=== PATIENT | male | born 1955 | race Caucasian/White ===

== ENCOUNTER → 2020-07-15 15:47 | Outpatient (CLI) | payer BC, SELFPAY ==
[2017-03-17 11:34] VITALS: BMI 29.5
[2020-07-15 17:07] LABS: Anion Gap 5 (5-15); BUN 24 mg/dL (7-18); BUN/Creat Ratio 22.9 RATIO (10-20); Calcium,Total 9.6 mg/dL (8.5-10.1); Chloride 108 mmol/L (98-107); Creatinine, Serum 1.05 mg/dL (0.70-1.30); EST Glomerular Filtration Rate 75 mL/min (>60); Est Glom Filt Rate - Afr Amer 91 mL/min (>60); Glucose 230 mg/dL (74-106); PSA,Total- Diagnostic 2.49 ng/mL (0.0-4.0); Potassium 3.8 mmol/L (3.5-5.1); Sodium Level 138 mmol/L (136-145)
== END ==
PROVIDERS: PCP Internal Medicine Infectious Disease; Referring Provider Urology; Visit Provider Urology
DX: N40.1 Benign prostatic hyperplasia with lower urinary tract symptoms (principal)
CPT/HCPCS: 36415; 80048; 84153

== ENCOUNTER 2021-03-05 09:11 | Day surgery (SDC) | payer BC, SELFPAY ==
--- NOTE | 2021-02-28 16:17 | EKG12_ITS ---
Test Reason : Blood Pressure : / mmHG Vent. Rate : 068 BPM Atrial Rate : 068 BPM P-R Int : 182 ms QRS Dur : 104 ms QT Int : 408 ms P-R-T Axes : 045 007 -16 degrees QTc Int : 433 ms Sinus rhythm with occasional Premature ventricular complexes Otherwise normal ECG Confirmed by CAROLE HAJI, MELVI ([id number]), make up editor KEVIN PORTILLO ([id number]) on 03/03/2021 2:07:12 PM Referred By: Murali Ovalle Confirmed By:MELVI LAM MD
[2021-02-28 16:54] LABS: Hematocrit 42.2 % (40-54); Hemoglobin 13.4 g/dL (13.0-16.5); Mean Corp Hgb Conc 31.8 g/dL (32-36); Mean Corpuscular Hgb 28.2 pg (27.0-32.0); Mean Corpuscular Volume 88.8 fL (80-94); Mean Platelet Vol. 9.2 fl (6.2-12.0); Platelet Count 312 K/mm3 (150-450); RBC Distribution Width CV 13.3 % (11.6-14.6); RBC Distribution Width SD 43.1 fl (35.1-43.9); Red Blood Count 4.75 M/mm3 (4.6-6.2); White Blood Count 4.9 K/mm3 (4.4-11.0)
[2021-02-28 16:56] LABS: Partial Thromboplast Time 29.9 Seconds (24.1-36.2)
[2021-02-28 17:14] LABS: AST(SGOT) 10 U/L (15-37); Alanine Aminotransfer ALT/SGPT 21 U/L (16-61); Albumin, Serum 3.7 g/dL (3.2-5.0); Alkaline Phosphatase 87 U/L (45-117); Anion Gap 4 (5-15); BUN 18 mg/dL (7-18); BUN/Creat Ratio 18.3 RATIO (10-20); Bilirubin, Direct 0.13 mg/dL (0.00-0.30); Calcium,Total 9.2 mg/dL (8.5-10.1); Chloride 105 mmol/L (98-107); Creatinine, Serum 0.98 mg/dL (0.70-1.30); EST Glomerular Filtration Rate 81 mL/min (>60); Est Glom Filt Rate - Afr Amer 98 mL/min (>60); Globulin 3.1 g/dL (2.2-4.2); Glucose 166 mg/dL (74-106); Potassium 3.6 mmol/L (3.5-5.1); Protein, Total 6.8 g/dL (6.4-8.2); Sodium Level 137 mmol/L (136-145)
[2021-02-28 19:52] LABS: Hemoglobin A1c 10.9 % (3.8-5.6)
[2021-03-05] VITALS (11 sets, daily range): BP systolic 112–142; BP diastolic 76–90; PULSE 50–72; RESP 16–18; TEMP 36.1–36.8; O2SAT 94–98; BMI 28.3
[2021-03-05] MEDS: Lactated Ringers 1,000 ML 100 ML IV ×2 (09:30→13:30)
[2021-03-05 10:31] LABS: Bedside Glucose 229 mg/dL (70-110)
--- NOTE | 2021-03-05 11:35 | PROS_PTH ---
PATIENT: DIMITRY CAMARILLO LOC: [facility] [place] U#:[id number] AGE/SX: 65/M ROOM: RE03/05/[address]: Dr. Murali Ovalle MD : 1955 BED: DIS: 03/06/2021 SPEC #: [id number] RECD: 03/06/21 07:35 STATUS: YANNICK REAna María #: [id number] MEJIA: 03/05/21 11:[address]: Murali Ovalle DEPT: SURGICAL PATHOLOGY RECD BY: Ramona Burr ENTERED: 03/06/21 07:35 SP TYPE: TURP OTHR DR: Dr. Terry Cruz MD Tissues: Prostate, NOS Procedures: Surgery Specimen Level IV HEADER OPERATION: Cysto, TUR prostate, Olympus PRE-OP DIAGNOSIS: BPH with obstruction TISSUE SUBMITTED: Prostate pieces MICROSCOPIC DIAGNOSIS Prostate, transurethral resection: Benign nodular hyperplasia, glandular and stromal types. Chronic prostatitis with focal acute prostatitis. Urothelium with mild chronic inflammation. AM:nicky 03/07/2021 MICROSCOPIC DESCRIPTION Slides are reviewed. GROSS DESCRIPTION Received is one container labeled with the patient's name and designated prostate pieces. The specimen consists of multiple irregular fragments of pink-jarrell, rubbery, soft tissue that in aggregate weigh 10 gm and measure in aggregate 4 x 4 x 1.5 cm. The entire specimen is submitted in ten cassettes. / SJ:nicky 03/06/21 TC:2 CPT: 93136
[2021-03-05] MEDS: Cefazolin 2 GM in 0.9% Normal Saline 100 ML IV (12:10)
[2021-03-05] MEDS: Lubricating Jelly 60 GM Tube 30 GM TOPICAL (12:10)
--- NOTE | 2021-03-05 13:15 | PCM.HP.STD ---
Problem List (1) BPH with obstruction/lower urinary tract symptoms Status: Acute History of Present Illness Date of Admission: 03/05/21 Chief Complaint: BPH with obstruction The patient is a 65 year old male with significant BPH and obstruction presents for transurethral resection of the prostate. Past Medical History Allergies No Known Allergies Allergy (Verified 03/05/21 09:38) Home Medications: Ambulatory Orders Medication Instructions Recorded Aspirin E.C. [Ecotrin] 81 mg PO DAILY@0800 03/17/17 Glimepiride [Amaryl] 8 mg PO DAILY 03/17/17 Isosorbide Mononitrate [Imdur] 60 mg PO DAILY 03/17/17 Lisinopril [Zestril] 10 mg PO DAILY 03/17/17 Metoprolol(XL)Succ [Toprol Xl 100 mg PO DAILY 03/17/17 (Beta Ulysses)] Simvastatin [Zocor] 80 mg PO DAILY 03/17/17 Tamsulosin HCl [Flomax] 0.8 mg PO DAILY 03/17/17 Calcium Carbonate [Calcium] 500 mg PO DAILY 02/27/21 Cinnamon Bark [Cinnamon] 1,000 mg PO DAILY 02/27/21 Empagliflozin [Jardiance] 25 mg PO DAILY 02/27/21 Finasteride 5 mg PO DAILY 02/27/21 Hydrochlorothiazide [Hctz] 12.5 mg PO DAILY 02/27/21 Krill Oil 500 mg PO DAILY 02/27/21 Magnesium 250 mg PO DAILY 02/27/21 Ubidecarenone [Coq-10] 400 mg PO DAILY 02/27/21 metFORMIN (XR) [Glucophage Xr] 1,000 mg PO BID 02/27/21 Ciprofloxacin [Cipro] 500 mg PO BID #6 tab 03/05/21 Ibuprofen 600 mg PO Q6H PRN PRN 7 Days #20 03/05/21 tablet Surgical History: no surgical history Smoking Status: Former smoker Tobacco Use: Non-smoker Review of Systems Constitutional: Denies: Chills, Fever, Weight Change HEENT: Denies: Head Aches, Sinus Congestion, Sinus Drainage Cardiovascular: Denies: Chest Pain, Palpitations Respiratory: Denies: Cough, Shortness of breath at rest, Sputum production Gastrointestinal: Denies: Abdominal Pain, Nausea, Vomiting Genitourinary: Denies: Dysuria Musculoskeletal: Denies: Joint Pain, Joint Tenderness Skin: Denies: Rash, Wounds Neurological: Denies: Numbness, Tingling, Focal weakness Psychiatric: Denies: Anxiety, Depression, Homicidal Ideations, Suicidal Ideations Hematologic/ Lymphatic: Denies: Easy Bruising, Easy Bleeding VTE Information - Inpt Only VTE Present on Admission: No - Physical Exam Vitals/I&O's: Vital Signs Temp Pulse Resp BP Pulse Ox 97.6 F L 50 L 16 127/84 H 97 03/05/21 09:50 03/05/21 09:50 03/05/21 09:50 03/05/21 09:50 03/05/21 09:50 Oxygen Delivery Method Room Air Weight: 97.4 kg Body Mass Index (BMI) 28.3 General: Alert, Oriented x3, Cooperative HEENT: Atraumatic, PERRLA, EOMI, Normocephalic Neck: Supple, No JVD, Negative Carotid Bruits Lungs: Clear to auscultation, Normal air movement Cardiovascular: Regular rate, No murmurs Abdomen: Bowel Sounds Present, Soft, Non Tender Extremities: No edema, Capillary Refill Less than 3 Seconds Skin: No rashes, No breakdown Musculoskeletal: No Tenderness to Palpation of Joints or Extremities Neurological: Cranial nerves II-XII grossly intact Psych/Mental Status: Normal Affect, Appropriate Laboratory Results 03/05/21 09:45: POC Glucose 229 H Assessment/Plan All Active Problems BPH with obstruction/lower urinary tract symptoms (Acute) Plan to proceed with TURP.
--- NOTE | 2021-03-05 13:16 | DCINST_ITS ---
Discharge Diet: Light diet - advance as tolerated Discharge Activity: Return to Normal Activity Allergies/Adverse Reactions: Allergies No Known Allergies Allergy (Verified 03/05/21 09:38) Medications to take at Discharge Aspirin E.C. [Ecotrin] 81 mg PO DAILY@0800 03/17/17 Glimepiride [Amaryl] 8 mg PO DAILY 03/17/17 Isosorbide Mononitrate [Imdur] 60 mg PO DAILY 03/17/17 Lisinopril [Zestril] 10 mg PO DAILY 03/17/17 Metoprolol(XL)Succ [Toprol Xl (Beta Ulysses)] 100 mg PO DAILY 03/17/17 Simvastatin [Zocor] 80 mg PO DAILY 03/17/17 Tamsulosin HCl [Flomax] 0.8 mg PO DAILY 03/17/17 Calcium Carbonate [Calcium] 500 mg PO DAILY 02/27/21 Cinnamon Bark [Cinnamon] 1,000 mg PO DAILY 02/27/21 Empagliflozin [Jardiance] 25 mg PO DAILY 02/27/21 Finasteride 5 mg PO DAILY 02/27/21 Hydrochlorothiazide [Hctz] 12.5 mg PO DAILY 02/27/21 Krill Oil 500 mg PO DAILY 02/27/21 Magnesium 250 mg PO DAILY 02/27/21 Ubidecarenone [Coq-10] 400 mg PO DAILY 02/27/21 metFORMIN (XR) [Glucophage Xr] 1,000 mg PO BID 02/27/21 Ciprofloxacin [Cipro] 500 mg PO BID #6 tab 03/05/21 Ibuprofen 600 mg PO Q6H PRN PRN 7 Days #20 tablet 03/05/21 The following prescriptions were given: Ciprofloxacin [Cipro] 500 mg PO BID #6 tab Transmission Status: Pending to [facility] Ibuprofen 600 mg PO Q6H PRN PRN 7 Days #20 tablet PRN Reason: Pain 1-10 Or Fever Transmission Status: Pending to [facility] Orders to be completed after discharge: 12 Lead EKG [CVS] Time Frame: 02/27/21, Facility: [facility], Location: Cardiovascular Services Primary Care Physician: Terry Cruz MD [Primary Care Provider] - Test Results: Test results from this visit will be discussed in further detail at your follow- up appointment, if applicable. Please Follow Up With: Murali Ovalle MD When: in 2 weeks, please call to make an appointment.
--- NOTE | 2021-03-05 13:19 | PCM.OPRPT ---
Problem List (1) BPH with obstruction/lower urinary tract symptoms Status: Acute Report of Operation Date of Procedure: 03/05/21 Pre-Operative Diagnosis: BPH with obstruction Post-Operative Diagnosis: Same Surgery/Procedure Performed:: Transurethral resection of the prostate Description of Surgical Findings:: In the preoperative setting I discussed with the patient how the surgery would be done with expect afterwards. We discussed how a prostate resection is done and we discussed the risk of the surgery including, bleeding, infection, retrograde ejaculation, changes with ejaculation or intercourse,. We discussed the possibility that the resection of the prostate may not alleviate his urinary symptoms. We discussed the small risk of developing scar tissue along the urethral channel and strictures. We also discussed the chance of the prostate could grow back and he may need further surgery or treatment in the future for prostate problems. Patient was taken back to the operating room, timeout procedure was performed, he was identified and marked and placed on the operating room table. He underwent general anesthesia. He was placed in dorsolithotomy position. Penis and testicles were prepped and draped in usual sterile fashion. Went into the bladder using the visual obturator with a resectoscope. Once inside the bladder identified the right and left ureteral orifice. I then identified the prostate and the anatomy of the prostate. I marked out the area of the sphincter and the verumontanum was identified. I then proceeded with the prostate resection first resected the median lobe. And then resected the right lobe of the prostate. Then to resect the left lobe of the prostate. I then resected the apical tissue of the prostate. Made sure that there was no injury to the sphincter or the verumontanum was still intact. At the end of the resection all the chips were Ellik out of the bladder. I then identified the left and right ureteral orifice and these were confirmed to be in good position and effluxing and not injured. The resectoscope was removed, a 22 Icelandic catheter was placed into the bladder on continuous irrigation. And the urine was fairly light pink color and draining normally. He was taken back to the PACU in good condition. Type of Anesthesia:: General Drains: 22fr 3 way - Admit VTE Documentation VTE Present on Admission: No VTE Mechan Device Prophylaxis: SCD's
[2021-03-05 13:36] LABS: Bedside Glucose 178 mg/dL (70-110)
[2021-03-05] MEDS: 0.9% Normal Saline 1,000 ML 75 ML IV (15:29)
[2021-03-05] MEDS: metFORMIN (XR) 500 MG Tablet 1000 MG PO (17:11)
[2021-03-05] MEDS: Ciprofloxacin 400 MG/200 ML BAG 200 MG IV (21:25)
[2021-03-05] MEDS: Atorvastatin Calcium 40 MG Tablet PO (21:26)
[2021-03-05] MEDS: Docusate Sodium 100 MG Capsule PO (21:26)
[2021-03-06] MEDS: 0.9% Normal Saline 1,000 ML 75 ML IV (04:26)
[2021-03-06 04:46] VITALS: BP 139/75; PULSE 67; RESP 16; TEMP 36.6; O2SAT 97
[2021-03-06 07:59] VITALS: BP 142/75; PULSE 60; RESP 18; TEMP 36.9; O2SAT 99
[2021-03-06] MEDS: Glimepiride 4 MG Tablet 8 MG PO (08:08)
[2021-03-06] MEDS: metFORMIN (XR) 500 MG Tablet 1000 MG PO (08:08)
[2021-03-06] MEDS: Ciprofloxacin 400 MG/200 ML BAG 200 MG IV (09:25)
[2021-03-06 09:32] VITALS: PULSE 60
[2021-03-06] MEDS: Pantoprazole Sodium 40 MG Tablet PO (09:32)
[2021-03-06] MEDS: Tamsulosin HCl 0.4 MG Capsule 0.8 MG PO (09:32)
[2021-03-06] MEDS: Docusate Sodium 100 MG Capsule PO (09:32)
[2021-03-06] MEDS: Metoprolol(XL)Succ 100 MG Tablet PO (09:32)
[2021-03-06] MEDS: Empagliflozin 25 MG Tablet PO (09:32)
[2021-03-06] MEDS: Isosorbide Mononitrate 60 MG Tablet PO (09:32)
[2021-03-06] MEDS: Lisinopril 10 MG Tablet PO (09:32)
[2021-03-06] MEDS: hydroCHLOROthiazide 12.5mg 12.5 MG PO (09:32)
[2021-03-06] MEDS: Magnesium Chloride 64 MG Delay Rel.Tablet 128 MG PO (10:40)
[2021-03-06 10:42] VITALS: BP 119/78; PULSE 81; RESP 18; TEMP 36.8; O2SAT 97
== END 2021-03-06 11:03 | disposition home or self-care (01) ==
LOC: SDC 09:12 → AC 09:13 → MS3 03-06 08:53
PROVIDERS: Anesthesiology; PCP Internal Medicine Infectious Disease; Referring Provider Urology; Visit Provider Urology
PROC: (CPT 52601; principal; 2021-03-05 11:25)
DX: N40.1 Benign prostatic hyperplasia with lower urinary tract symptoms (principal); N41.1 Chronic prostatitis; N41.0 Acute prostatitis; Z79.82 Long term (current) use of aspirin; Z79.84 Long term (current) use of oral hypoglycemic drugs; Z87.891 Personal history of nicotine dependence
CPT/HCPCS: 52601; 36415; 80048; 80076; 82962; 83036; 85027; 85610; 85730; 88305; 93005; J7030; J7120; J0744; J2405

== ENCOUNTER → 2022-06-26 | Outpatient (CLI) | payer OTHER, SELFPAY ==
--- NOTE | 2022-06-26 | LES_PTH ---
PATIENT: DIMITRY CAMARILLO LOC: [facility] U#:[id number] AGE/SX: 67/M ROOM: RE06/26/[address]: Dr. Eliel Myers MD : 1955 BED: DIS: 06/26/2022 SPEC #: [id number] RECD: 06/26/22 09:59 STATUS: YANNICK REAna María #: [id number] MEJIA: 06/26/22 00:[address]: Eliel Myers DEPT: SURGICAL PATHOLOGY RECD BY: Ramona Burr ENTERED: 06/26/22 10:11 SP TYPE: Lesion OTHR DR: Dr. Terry Cruz MD Tissues: Skin of eyelid, NOS Procedures: Surgery Specimen Level III HEADER OPERATION: Right upper lid at lateral canthus PRE-OP DIAGNOSIS: Elevated lesion at right upper lid TISSUE SUBMITTED: Right lateral canthus lesion MICROSCOPIC DIAGNOSIS Right lateral canthus lesion, biopsy: Benign squamous papilloma with verrucoid features, mildly inflamed. AM:nicky 06/29/2022 COMMENT Case has been reviewed in consultation with Dr. Shelby who concurs with the above diagnosis. IDC:SJ MICROSCOPIC DESCRIPTION Slides are reviewed. GROSS DESCRIPTION Received in fixative is one container labeled with the patient's name and designated right upper lid. The specimen consists of an irregular fragment of light jarrell soft tissue measuring 0.8 x 0.5 x 0.2 cm. The specimen is bisected and totally submitted in one cassette. / AM:nicky 06/26/2022 TC:5 CPT: 16606
== END | disposition home or self-care (01) ==
LOC: LABSPEC 10:05
PROVIDERS: PCP Internal Medicine Infectious Disease; Referring Provider Ophthalmology; Visit Provider Ophthalmology
DX: H02.9 Unspecified disorder of eyelid (principal)
CPT/HCPCS: 88304; 88305

== ENCOUNTER 2023-09-27 09:59 | Outpatient (CLI) | payer MEDICARE, BC, SELFPAY ==
[2023-09-27 10:10] LABS: Bacteria 0 SEEN /hpf (None Seen); Mucous, Urine 0 SEEN /hpf (<or=2+); Red Blood Cells-Urine 0 SEEN /hpf (0-5); Squamous Epithelial Cells - UA 0 SEEN /hpf (0-5); White Blood Cells 0 SEEN /hpf (0-5)
[2023-09-27 12:28] LABS: Erythrocyte Sedimentation Rate 18 mm/hr (0-20)
[2023-09-27 12:31] LABS: Color, Urine Yellow (Yellow); Glucose, Dipstick 1000 mg/dl (Normal); Ketone-Dipstick Negative (Negative); Leukocyte Esterase-Dipstick Negative /ul (Negative); Nitrite-Dipstick Negative (Negative); Occult Blood-Urine Negative /ul (Negative); Protein-Dipstick Negative (Negative); Urine Bilirubin Dipstick Negative (Negative); Urine Clarity Clear (Clear); Urine Urobilinogen Normal (Normal)
[2023-09-27 12:32] LABS: Absolute Lymphocyte Count 0.76 X10^3/uL (0.83-4.51); Absolute Neutrophil Count 3.6 X10^3/uL (2.0-7.7); Basophil# 0.03 X10^3/uL; Basophil% 0.6 % (0-1); Eosinophil# 0.24 X10^3/uL; Eosinophils% 4.6 % (0-5); Hematocrit 43.9 % (40-54); Hemoglobin 13.8 g/dL (13.0-16.5); Lymphocyte # 0.76 X10^3/ul (0.83-4.51); Lymphocyte % 14.5 % (19-41); Mean Corp Hgb Conc 31.4 g/dL (32-36); Mean Corpuscular Hgb 26.7 pg (27.0-32.0); Mean Corpuscular Volume 85.1 fL (80-94); Mean Platelet Vol. 9.2 fl (6.2-12.0); Monocyte% 11.5 % (0-10); NRBC Flagged by Analyzer 0 % (0-5); Neutrophil # 3.59 X10^3/uL (2.7-7.7); Neutrophil % 68.6 % (47-70); Platelet Count 409 K/mm3 (150-450); RBC Distribution Width CV 14.1 % (11.6-14.6); RBC Distribution Width SD 43.5 fl (35.1-43.9); Red Blood Count 5.16 M/mm3 (4.6-6.2); White Blood Count 5.2 K/mm3 (4.4-11.0)
[2023-09-27 13:02] LABS: ALB/GLOB Ratio 0.8 RATIO (0.9-2.4); AST(SGOT) 13 U/L (15-37); Alanine Aminotransfer ALT/SGPT 21 U/L (16-61); Albumin, Serum 3.1 g/dL (3.2-5.0); Alkaline Phosphatase 164 U/L (45-117); Anion Gap 7 (5-15); BUN 18 mg/dL (7-18); BUN/Creat Ratio 16.7 RATIO (10-20); Calcium,Total 9.3 mg/dL (8.5-10.1); Chloride 101 mmol/L (98-107); Creatinine, Serum 1.08 mg/dL (0.70-1.30); EST Glomerular Filtration Rate 72 mL/min (>60); Est Glom Filt Rate - Afr Amer 87 mL/min (>60); Globulin 3.9 g/dL (2.2-4.2); Glucose 433 mg/dL (74-106); PSA,Total- Diagnostic 1.17 ng/mL (0.0-4.0); Potassium 4.4 mmol/L (3.5-5.1); Sodium Level 133 mmol/L (136-145)
[2023-09-28 14:10] LABS: PROEL- A/G Ratio 1.2 (0.7-1.7); PROEL- Albumin 3.3 g/dL (2.9-4.4); PROEL- Alpha-1 Globulin 0.2 g/dL (0.0-0.4); PROEL- Alpha-2 Globulin 0.9 g/dL (0.4-1.0); PROEL- Gamma Globulin 0.7 g/dL (0.4-1.8); PROEL- Globulin, Total 2.8 g/dL (2.2-3.9); PROEL- TOTAL PROTEIN 6.1 g/dL (6.0-8.5); PROEL-M-Spike Not Observed g/dL (Not Observed)
== END 2023-09-27 23:59 | disposition home or self-care (01) ==
PROVIDERS: PCP Internal Medicine Infectious Disease; Referring Provider Physician Assistant; Visit Provider Physician Assistant
DX: D48.5 Neoplasm of uncertain behavior of skin (principal); L81.4 Other melanin hyperpigmentation; L82.1 Other seborrheic keratosis; L20.89 Other atopic dermatitis; E05.90 Thyrotoxicosis, unspecified without thyrotoxic crisis or storm
CPT/HCPCS: 36415; 80053; 81001; 84153; 84165; 85025; 85652

== ENCOUNTER 2023-11-21 10:47 | Emergency (ER) | payer MEDICARE, BC, SELFPAY ==
[2023-11-21 10:49] VITALS: BP 152/89; PULSE 78; RESP 16; TEMP 35.8; O2SAT 99; BMI 26.4
--- NOTE | 2023-11-21 11:40 | CT_ITS ---
INDICATION: Neuro deficit, acute, stroke suspected EXAMINATION: CT BRAIN - CT Head or Brain W/O Contrast Injection TECHNIQUE: Multiple axial images were obtained of the head without intravenous contrast. A radiation dose optimization technique was used for this scan. IV Contrast dosage and agent: None. RADIATION DOSAGE (If Supplied By Facility): CTDIvol = ( 44.99 ) mGy, DLP = ( 779.24 ) mGycm COMPARISON: March 23, 2017 FINDINGS: BRAIN PARENCHYMA: No intra- or extra-axial hemorrhage. No evidence of acute infarct. No intracranial mass or mass effect. There is preservation of the ceballos/white matter interface. Posterior fossa structures are unremarkable. CSF SPACES: Appropriate for age. No hydrocephalus. Basal cisterns are patent. CALVARIUM, SKULL BASE, PARANASAL SINUSES AND MASTOID AIR CELLS: Clear. No discrete lytic or blastic abnormalities. ORBITS: Both globes, extraocular muscles, optic nerves and retrobulbar fat appear unremarkable. ASPECTS Score for Acute Strokes: 10 CT/Brain/Head without Contrast IMPRESSION: No acute intracranial process. Electronically Signed: Laura Newsome MD at 13:18 EST ,
--- NOTE | 2023-11-21 11:40 | EKG12_ITS ---
Test Reason : STROKE Blood Pressure : / mmHG Vent. Rate : 079 BPM Atrial Rate : 079 BPM P-R Int : 190 ms QRS Dur : 112 ms QT Int : 410 ms P-R-T Axes : 046 016 036 degrees QTc Int : 470 ms Normal sinus rhythm Incomplete right bundle branch block Nonspecific T wave abnormality Prolonged QT Abnormal ECG Confirmed by CAROLE HAJI, MELVI ([id number]), newspaper or periodical editor TRACIE HOWELL ([id number]) on 11/23/2023 8:33:19 AM Referred By: EVA Confirmed By:MELVI LAM MD
--- NOTE | 2023-11-21 11:40 | RAD_ITS ---
INDICATION: Neuro deficit, acute, stroke suspected EXAMINATION/TECHNIQUE: X-RAY - XR Chest 1 View COMPARISON: CT dated October 01, 2014 FINDINGS: LINES/DEVICES: None. LUNGS: No consolidation, edema or effusion. No pneumothorax. MEDIASTINUM AND CARDIOVASCULAR STRUCTURES: There are sternotomy wires in place. Cardiac silhouette not enlarged. Central airways and mediastinal contour are unremarkable. BONES AND SOFT TISSUES: Unremarkable. RAD/Chest 1 View IMPRESSION: No radiographic evidence of acute cardiopulmonary disease. Electronically Signed: Laura Newsome MD at 13:50 EST ,
--- NOTE | 2023-11-21 11:41 | CT_ITS ---
INDICATION: binocular diplopia EXAMINATION: CT BRAIN WITHOUT CONTRAST, CTA HEAD, AND CTA NECK TECHNIQUE: Noncontrast axial images were obtained of the brain. Subsequently, routine carotid CT angiogram protocol was performed without and with IV contrast. In addition, images were obtained of the [place] of [place]. NASCET criteria using the distal ICAs for comparison were used for evaluation of stenoses. 3D reconstructions were reviewed. A radiation dose optimization technique was used for this scan. IV Contrast dosage and agent: 100 cc of Isovue-370 COMPARISON: March 23, 2017 FINDINGS: --CT BRAIN WITHOUT CONTRAST: BRAIN PARENCHYMA: No intra- or extra-axial hemorrhage. No evidence of acute infarct. No intracranial mass or mass effect. There is preservation of the ceballos/white matter interface. Posterior fossa structures are unremarkable. CSF SPACES: Appropriate for age. No hydrocephalus. Basal cisterns are patent. CALVARIUM, SKULL BASE, PARANASAL SINUSES AND MASTOID AIR CELLS: Clear. No discrete lytic or blastic abnormalities. ASPECTS Score for Acute Strokes: 10 --CTA NECK: AORTIC ARCH AND BRANCHES: Normal anatomy, patent. RIGHT CCA: No occlusion, significant stenosis or dissection. RIGHT ICA: There is a stent in place. No occlusion, significant stenosis or dissection. LEFT CCA: No occlusion, significant stenosis or dissection. LEFT ICA: There is atherosclerosis. No occlusion, significant stenosis or dissection. RIGHT VERTEBRAL ARTERY: No occlusion, significant stenosis or dissection. LEFT VERTEBRAL ARTERY: No occlusion, significant stenosis or dissection. NECK SOFT TISSUES: Unremarkable. --CTA HEAD: --Anterior circulation: ICAs: There is bilateral atherosclerosis. No significant stenosis at the intracranial/visualized segments. ACAs: No significant stenosis at the visualized segments. ACOM: Present. MCAs: No significant stenosis at the visualized segments. --Posterior circulation: PCOMs: Within normal limits. director outcomes: No significant stenosis at the visualized segments. BASILAR ARTERY: No significant stenosis. VERTEBRAL ARTERIES: No significant stenosis at the intradural/visualized segments. No evidence of intracranial aneurysm or vascular malformation. CT/CTA Head AND Neck W/ Contrast IMPRESSION: Atherosclerosis with no hemodynamically significant stenosis. Electronically Signed: Laura Newsome MD at 14:20 EST ,
--- NOTE | 2023-11-21 11:47 | EDS_ITS ---
<Statement entered by Jennifer Lewis MD - 11/21/23 16:05> I have personally performed a face to face assessment of the patient and have reviewed the JANKI Note. Patient presents secondary to double vision for the past 4 to 5 days with left eye pain. No recent trauma. He did note some drooping of his left eyelid last evening as well. He is scheduled to see Dr. Guevara with ophthalmology this coming , but has not established with her at this point. Patient sick upright in bed no acute distress. Head and neck examination reveals no facial erythema or edema. Minimal if any eyelid droop on the left. He is unable to fully look superiorly with the left eye with some nerve palsy. Pupils appear equal and reactive. No conjunctival injection or erythema. No temporal tenderness. Heart is regular rate and rhythm. Lung sounds are clear. Abdomen is soft and nontender. Stroke workup was undertaken. Lab work unremarkable with blood sugars in the 300s. CT and CTA of the head and neck reviewed. There is no evidence of aneurysm. No acute findings noted. We spoke with Dr. Osborne, on-call for ophthalmology after not being able to reach Dr. Guevara. He did request sed rate and CRP which will be obtained and he will be contacted again. Plan will be discharged with close follow-up. HPI History of Present Illness Chief Complaint: Eye Problem Narrative Narrative: Patient presenting today with double vision that started 4 days ago when he woke up. He reports that he has had pain behind his left eye that is a constant, sharp, and burning pain. He reports that he is symptomatic in both eyes, if he covers one of his eyes he can see clearly through the other. He also is able to align his vision if he tilts his head in a certain direction such as up and down or [id number]. Most of the time, the images are horizontal, but sometimes they are vertical. He denies any visual field cuts. He is not able to see the eye doctor until . He reports that something similar did happen about 6 years ago but he was told it was because of his diabetes. He did not have pain in his eye at that time. He denies any history of strokes. He reports a PMH of diabetes mellitus, CAD with CABG, Tejada's palsy, carotid artery stenosis with stent placement, and hypertension. [facility] Medical History (Updated 11/21/23 @ 16:52 by DIALLO Nugyễn) HTN (hypertension) Hyperlipidemia Type 2 diabetes mellitus Home Medications aspirin 81 mg tablet,delayed release 81 mg PO DAILY@0800 03/17/17 [History Last Taken 02/27/21] metoprolol succinate 100 mg tablet,extended release 24 hr 100 mg PO DAILY 03/17/17 [History Last Taken 03/05/21 06:00] tamsulosin 0.4 mg capsule 0.8 mg PO DAILY 03/17/17 [History Last Taken Unknown] empagliflozin 25 mg tablet 25 mg PO DAILY 02/27/21 [History Last Taken Unknown] finasteride 5 mg tablet 5 mg PO DAILY 02/27/21 [History Last Taken Unknown] metformin 500 mg tablet,extended release 24 hr 1,000 mg PO BID 02/27/21 [History Last Taken Unknown] atorvastatin 40 mg tablet 40 mg PO DAILY 11/21/23 [History Last Taken Unknown] clopidogrel 75 mg tablet 75 mg PO DAILY 11/21/23 [History Last Taken Unknown] hydrocodone-acetaminophen 5-325mg 5mg-325mg 1 tab PO Q4H PRN PRN Pain 2 days #6 TABLETS 11/21/23 [Rx Last Taken Unknown] insulin aspart U-100 100 unit/mL (3 mL) subcutaneous pen (Novolog FlexPen U-100 Insulin aspart) 5 unit subcut TID 11/21/23 [History Last Taken Unknown] levothyroxine 50 mcg tablet 50 mcg PO DAILY 11/21/23 [History Last Taken Unknown] Allergy/AdvReac Type Severity Reaction Status Date / Time No Known Allergies Allergy Verified 11/21/23 10:49 Surgical History (Updated 11/21/23 @ 12:26 by Jolene Bee RN) Hx of CABG Hx of heart artery stent Social History Smoking Status: Former smoker ROS ROS ED Constitutional Constitutional ED: Denies chills or fever(s) Eyes Eyes: Reports change in vision bilateral and diplopia Cardiovascular Cardiovascular: Denies chest pain or palpitations Respiratory/Chest Respiratory/Chest: Denies cough or dyspnea Gastrointestinal Gastrointestinal: Denies abdominal pain, nausea or vomiting Musculoskeletal Musculoskeletal: Denies arthralgias or myalgias Integumentary Denies rash Neurologic Neurologic: Reports headache(s); Denies confusion, dizziness, paresthesias or weakness EXAM Physical Exam Const Vital Signs: 11/21/23 10:49 Temperature 96.5 F L Temperature Source Temporal Pulse Rate 78 Respiratory Rate 16 Blood Pressure 152/89 H Blood Pressure Mean 110 Pulse Ox 99 Oxygen Delivery Method Room Air Positive well nourished, well developed and no apparent distress General Appearance ED: well developed HEENT Reports normocephalic and head/scalp atraumatic Mouth ED: Yes moist mucous membranes normal Eyes PERRL and conjunctivae normal Eyes Narrative: EOMs intact on the right side, on the left, patient has a difficult time moving his eye superiorly General Eye ED: Yes normal appearance of both eyes Alignment: alignment normal Neck full ROM and supple Chest Wall inspection of chest normal Resp normal respiratory effort and clear to auscultation bilaterally Cardio regular rate and regular rhythm GI soft to palpation, non-tender, non-distended and no masses Back/Spine normal ROM and normal to inspection Extremity normal to inspection and full ROM Neuro oriented x3, CN's II-XII intact bilaterally, moves all extremities, no focal motor deficits and no sensory deficits noted Neuro Narrative: NIH 0. Sensorium / Orientation: awake and alert Motor Exam: strength 5/5 throughout Psych mental status grossly normal and thought process normal Skin no rashes or lesions noted and no wounds MDM MDM MDM Narrative Medical decision making narrative: Patient presenting with diplopia that started 4 days ago when he woke up. He reports pain behind his left eye. He does have a history of cranial nerve and VII palsy about 6 years ago. He also reports that at times his left eye will involuntarily close and he has to cover his right eye for it to open again. He reports that if he covers either eye, the diplopia resolves. He thinks that this is mainly coming from the left eye. Stroke workup was up. CBC and BMP are unremarkable. Patient is hyperglycemic at 346, no signs of DKA. Troponin WNL. Head CT and head and neck CTA are unremarkable for any acute intracranial findings. I did discuss patient with Dr. Simmons who thinks that this is likely a cranial nerve III palsy due to patient's diabetes. Patient does have poor control of his diabetes and his last A1c was 11. Dr. Simmons recommends obtaining an ESR and CRP to help rule out temporal arteritis, these are both unremarkable. Symptoms do not seem consistent with temporal arteritis. Patient was given Tylenol for the pain behind his eye but this did not seem to help, he will be given a short course of [place]. He is to see ophthalmology on Wednesday. I did discuss importance of better managing his diabetes with him. He will be discharged home in stable condition and is comfortable with plan. Lab Data Attestation: I reviewed the patient's lab results. Radiography Chest X-Ray - ED: Read by ED Physician and Read by Radiologist EKG Initial EKG: Comments: 79 bpm, normal sinus rhythm, incomplete right bundle branch block, nonspecific T wave abnormality, no ST elevation, reviewed and interpreted by attending ED physician Discharge Plan Triage Chief Complaint: Eye Problem Other Complaint: Other, Pain/Inj ED Midlevel Provider: Lisa Cunningham ED Provider: Jennifer Lewis Dx/Rx/DC Orders Clinical Impression: Diplopia, Cranial nerve III palsy, Diabetes mellitus with hyperglycemia Instructions: ED Double Vision (Diplopia) Prescriptions: New hydrocodone-acetaminophen 5-325 mg tablet 1 tab PO Q4H PRN PRN (Reason: Pain) 2 Days Qty: 6 0RF No Action metoprolol succinate 100 MG tablet 100 mg PO DAILY aspirin 81 MG tablet 81 mg PO DAILY@0800 tamsulosin 0.4 MG capsule 0.8 mg PO DAILY metformin 500 MG tablet 1,000 mg PO BID finasteride 5 MG tablet 5 mg PO DAILY empagliflozin 25 MG tablet 25 mg PO DAILY atorvastatin 40 mg tablet 40 mg PO DAILY Patient Comments: TAKE 1 TABLET BY MOUTH ONCE DAILY clopidogrel 75 mg tablet 75 mg PO DAILY Patient Comments: TAKE 1 TABLET BY MOUTH ONCE DAILY insulin aspart U-100 [Novolog FlexPen U-100 Insulin] 100 unit/mL (3 mL) insulin pen 5 unit SUBCUT TID levothyroxine 50 mcg tablet 50 mcg PO DAILY Patient Comments: TAKE 1 TABLET BY MOUTH ONCE DAILY Primary Care Provider: Terry Cruz Referrals: Santino Osborne MD [Med Staff - Active Staff] - 2 Days Terry Cruz MD [Primary Care Provider] - Activity Restrictions/Additional Instructions: Please follow-up with Dr. Osborne on Wednesday. Disposition Disposition: Home, Self Care Discharge Date/Time: 11/21/23 16:17
--- NOTE | 2023-11-21 11:56 | ED.RN ---
per dr serna no need for nih assessments since symptoms have been ongoing for 5-6 days.
[2023-11-21 11:58] LABS: Absolute Lymphocyte Count 0.88 X10^3/uL (0.83-4.51); Absolute Neutrophil Count 3.5 X10^3/uL (2.0-7.7); Basophil# 0.02 X10^3/uL; Basophil% 0.4 % (0-1); Eosinophils% 3.9 % (0-5); Hematocrit 44.7 % (40-54); Hemoglobin 13.6 g/dL (13.0-16.5); Lymphocyte # 0.88 X10^3/ul (0.83-4.51); Lymphocyte % 17.1 % (19-41); Mean Corp Hgb Conc 30.4 g/dL (32-36); Mean Corpuscular Hgb 25.7 pg (27.0-32.0); Mean Corpuscular Volume 84.5 fL (80-94); Monocyte# 0.55 X10^3/uL; Monocyte% 10.7 % (0-10); NRBC Flagged by Analyzer 0 % (0-5); Neutrophil # 3.49 X10^3/uL (2.7-7.7); Neutrophil % 67.5 % (47-70); Platelet Count 364 K/mm3 (150-450); RBC Distribution Width CV 14.1 % (11.6-14.6); RBC Distribution Width SD 43.4 fl (35.1-43.9); Red Blood Count 5.29 M/mm3 (4.6-6.2); White Blood Count 5.2 K/mm3 (4.4-11.0)
[2023-11-21 12:03] LABS: Prothrombin Time (Protime)PT. 13.2 SECONDS (11.7-14.9)
[2023-11-21 12:04] LABS: Partial Thromboplast Time 29.1 Seconds (24.1-36.2)
--- OUTSIDE RECORDS SUMMARY | 2023-11-21 12:06 | XMS RPT_ITS | CCD ---
Author Name Unknown Address [address] [facility] [address] [place] [address] Organization [facility] Care Team Providers Care Financial Compliance Examiner Name Role Phone TIMMY HAJI, DR NARANJO Primary Care Physician NATHALY CONRAD, MS. MUKESH Claribel Attending Marie WARNER MD., DR. NARANJO Primary Care DIDIER Cross MD Attending Camila WARNER MD., DR. NARANJO Primary Care NASIM Gilbert MD Admitting Camila WARNER MD., DR. NARANJO Primary Care NASIM Gilbert MD Attending Camila VIERA MD., DR. THOMAS Consulting DENICE Dias MD Consulting NASIM Donnelly MD Consulting Unavailable ISABEL THOMPSON MD Consulting Marie WARNER MD., DR. NARANJO Primary Care NASIM Gilbert MD Attending Camila WARNER MD., DR. NARANJO Primary Care NASIM Gilbert MD Consulting Unavailable DIDIER MARCELO MD Attending DIDIER De La Rosa MD Consulting Unavailable ANDERSEN INSPECTOR [employer] RECONDITIONING, MSSandra FANA Claribel Attending Marie WARNER MD., DR. NARANJO Primary Care NASIM Gilbert MD Admitting Camila WARNER MD., DR. NARANJO Primary Care NASIM Gilbert MD Attending NASIM Donnelly MD Attending Camila WARNER MD., DR. NARANJO Primary Care Flavio WARNER MD., DR. NARANJO Primary Care NASIM Gilbert MD Attending JOSE A Bassett MD Consulting Unavailable JOSE A WARNER MD Attending Unavailable JOSE A WARNER MD Admitting Unavailable JOSE A WARNER MD Primary Care Unavailable PROVIDER, UNKNOWN Consulting Unavailable PROVIDER, UNKNOWN Consulting Unavailable PROVIDER, UNKNOWN Consulting Unavailable JOSE A WARNER MD Consulting Unavailable JOSE A WARNER MD Attending Unavailable JOSE A WARNER MD Admitting Unavailable JOSE A WARNER MD Primary Care Unavailable PROVIDER, UNKNOWN Consulting Unavailable PROVIDER, UNKNOWN Consulting Unavailable PROVIDER, UNKNOWN Consulting Unavailable JOSE A WARNER MD Consulting Unavailable JOSE A WARNER MD Attending Unavailable JOSE A WARNER MD Admitting Unavailable JOSE A WARNER MD Primary Care Unavailable PROVIDER, UNKNOWN Consulting Unavailable PROVIDER, UNKNOWN Consulting Unavailable PROVIDER, UNKNOWN Consulting Unavailable JOSE A WARNER MD Consulting Unavailable MARY, ELDER Primary Care Unavailable MARY, ELDER Attending Unavailable MARY, ELDER Admitting Unavailable PROVIDER, UNKNOWN Consulting Unavailable PROVIDER, UNKNOWN Consulting Unavailable PROVIDER, UNKNOWN Consulting Unavailable EULA CORBETT PAC Primary Care Unavailable EULA CORBETT PAC Attending Unavailable JOSE A WARNER MD Consulting Unavailable EULA CORBETT PAC Admitting Unavailable PROVIDER, UNKNOWN Consulting Unavailable PROVIDER, UNKNOWN Consulting Unavailable PROVIDER, UNKNOWN Consulting Unavailable JOSE A WARNER MD Consulting Unavailable JOSE A WARNER MD Attending Unavailable JOSE A WARNER MD Admitting Unavailable JOSE A WARNER MD Primary Care Unavailable PROVIDER, UNKNOWN Consulting Unavailable PROVIDER, UNKNOWN Consulting Unavailable PROVIDER, UNKNOWN Consulting Unavailable NATHALY MUKESH Primary Care Unavailable MUKESH ANDERSEN Attending Unavailable JOSE A WARNER MD Consulting Unavailable NATHALY MUKESH Admitting Unavailable PROVIDER, UNKNOWN Consulting Unavailable PROVIDER, UNKNOWN Consulting Unavailable PROVIDER, UNKNOWN Consulting Unavailable Medications Current Medications Medication Drug Class(es) Dates Sig (Normalized) Sig (Original) acetaminophen 325 mg oral capsule (2 sources) Start: 10-28-2022 Tylenol 325 mg oral capsule Dose : 650 mg =, Oral, q4h, PRN Pain, scale 1-6, 0 Refill(s) Start Date: 10/28/22 Status: Ordered amiodarone hydrochloride 200 mg oral tablet (3 sources) Antiarrhythmic Start: 11-05-2022 End: 12-17-2022 amiodarone 200 mg oral tablet Dose : 200 mg = 1 tab(s), Oral, BID, # 84 tab(s), 0 Refill(s), Pharmacy: [id number], [id number], cm, 10/23/22 10:10:00 EST, Height Start Date: 11/05/22 Stop Date: 12/17/22 Status: Ordered Completed/Discontinued Medications Medication Drug Class(es) Dates Sig (Normalized) Sig (Original) nitroglycerin 0.4 mg/actuat mucosal spray (5 sources) Nitrate Vasodilator Start: 02-11-2022 nitroglycerin 0.4 mg sublingual spray Dose : 0.4 mg = 1 spray(s), Sublingual, q5min, PRN as needed for chest pain, # 12 gram(s), 0 Refill(s) Start Date: 02/11/22 Status: Ordered Problems Active Problems Problem Classification Problem Date Documented Date Episodic/Chronic Cancer of head and neck (1 source) H/O: malignant neoplasm; Translations: [Personal history of malignant neoplasm of other sites of lip, oral cavity, and pharynx] Episodic Cancer; other and unspecified primary (2 sources) History of malignant neoplasm of thoracic cavity structure; Translations: [Personal history of malignant neoplasm of other respiratory and intrathoracic organs] Onset: 07-14-2022 Episodic Cancer; other respiratory and intrathoracic (5 sources) History of malignant neoplasm of ear, nose AND/OR throat 01-09-2020 Episodic Past or Other Problems Problem Classification Problem Date Documented Da te Episodic/Chronic Coronary atherosclerosis and other heart disease (1 source) Presence of aortocoronary bypass graft; Translations: [Presence of aortocoronary bypass graft] Onset: 11-17-2022 Episodic Deficiency and other anemia (3 sources) Anemia, unspecified; Translations: [Anemia, unspecified] Onset: 11-03-2022 Episodic Spondylosis; intervertebral disc disorders; other back problems (1 source) Radiculopathy, site unspecified; Translations: [Radiculopathy, site unspecified] Onset: 04-12-2023 Episodic Results Test Name Value Interpretation Reference Range Facil ity Vital Signs Date Time Vital Sign Value Performing Clinician Sandyi edilberto 10-28-2022 13:43-0500 Heart rate 74 /min NASIM ACOSTA MD [facility] 10-28-2022 13:43-0500 Respiratory rate 18 /min NASIM ACOSTA MD [facility] 10-28-2022 11:03-0500 Body temperature 98.78 [degF] NASIM ACOSTA MD [address] [place] [address] 10-28-2022 11:03-0500 Diastolic Blood Pressure Non-Invasive 71 1 NASIM ACOSTA MD [facility] 10-28-2022 11:03-0500 Heart rate 66 /min NASIM ACOSTA MD [facility] 10-28-2022 11:03-0500 Mean blood pressure 85 mm[Hg] NASIM ACOSTA MD [facility] 10-28-2022 11:03-0500 Reason For Taking VItal Signs NASIM ACOSTA MD [facility] 10-28-2022 11:03-0500 Respiratory rate 18 /min NASIM ACOSTA MD [facility] 10-28-2022 11:03-0500 Systolic Blood Pressure Non-Invasive 114 1 NASIM ACOSTA MD [address] [place] [address] 10-28-2022 08:17-0500 Heart rate 90 /min NASIM ACOSTA MD [facility] 10-28-2022 08:17-0500 Reason For Taking VItal Signs NASIM ACOSTA MD [facility] 10-28-2022 08:17-0500 Respiratory rate 18 /min NASIM ACOSTA MD [facility] 10-28-2022 06:56-0500 Body temperature 98.24 [degF] NASIM ACOSTA MD [facility] 10-28-2022 06:56-0500 Diastolic Blood Pressure Non-Invasive 81 1 NASIM ACOSTA MD [facility] 10-28-2022 06:56-0500 Heart rate 93 /min NASIM ACOSTA MD [facility] 10-28-2022 06:56-0500 Mean blood pressure 89 mm[Hg] NASIM ACOSTA MD [facility] 10-28-2022 06:56-0500 Reason For Taking VItal Signs NASIM ACOSTA MD [facility] 10-28-2022 06:56-0500 Systolic Blood Pressure Non-Invasive 115 1 NASIM ACOSTA MD [facility] 10-28-2022 04:29-0500 Body temperature 98.6 [degF] NASIM ACOSAT MD [facility] 10-28-2022 04:29-0500 Diastolic Blood Pressure Non-Invasive 83 1 NASIM ACOSTA MD [facility] 10-28-2022 04:29-0500 Mean blood pressure 95 mm[Hg] NASIM ACOSTA MD [facility] 10-28-2022 04:29-0500 Systolic Blood Pressure Non-Invasive 123 1 NASIM ACOSTA MD [address] [place] [address] 10-27-2022 16:19-0500 Heart rate 80 /min NASIM ACOSTA MD [address] 10-27-2022 10:18-0500 Heart rate 73 /min NASIM ACOSTA MD [facility] 10-27-2022 09:26-0500 Heart rate 87 /min NASIM ACOSTA MD [address] 10-26-2022 08:15-0500 Body temperature 95 [degF] NASIM ACOSTA MD [address] 10-26-2022 07:45-0500 Body temperature 95 [degF] NASIM ACOSTA MD [facility] 10-24-2022 13:21-0500 Diastolic blood pressure 63 mm[Hg] NASIM ACOSTA MD [facility] 10-24-2022 13:21-0500 Mean blood pressure 82 mm[Hg] NASIM ACOSTA MD [address] [place] [address] 10-24-2022 13:21-0500 Systolic blood pressure 114 mm[Hg] NASIM ACOSTA MD [facility] 10-24-2022 12:20-0500 Diastolic blood pressure 86 mm[Hg] NASIM ACOSTA MD [facility] 10-24-2022 12:20-0500 Mean blood pressure 110 mm[Hg] NASIM ACOSTA MD [facility] 10-24-2022 12:20-0500 Systolic blood pressure 150 mm[Hg] NASIM ACOSTA MD [facility] 10-24-2022 12:01-0500 Diastolic blood pressure 75 mm[Hg] NASIM ACOSTA MD [facility] 10-24-2022 12:01-0500 Mean blood pressure 97 mm[Hg] NASIM ACOSTA MD [facility] 10-24-2022 12:01-0500 Systolic blood pressure 134 mm[Hg] NASIM ACOSTA MD [facility] 10-23-2022 15:33-0500 SaO2% (BldA) [Mass fraction] 96.6 % NASIM ACOSTA MD [facility] 10-23-2022 14:27-0500 SaO2% (BldA) [Mass fraction] 98.5 % NASIM ACOSTA MD [facility] 10-23-2022 14:24-0500 Body temperature 96.26 [degF] NASIM ACOSTA MD [facility] 10-23-2022 14:22-0500 Body temperature 96.26 [degF] NASIM ACOSTA MD [facility] 10-23-2022 14:17-0500 Body temperature 96.26 [degF] NASIM ACOSTA MD [facility] 10-23-2022 12:04-0500 SaO2% (BldA) [Mass fraction] 98.3 % NASIM ACOSTA MD [facility] 10-23-2022 10:10-0500 Body height 184 cm NASIM ACOSTA MD [facility] 10-23-2022 10:10-0500 Body weight 92 kg NASIM ACOSTA MD [facility] 10-23-2022 10:10-0500 Body weight 27.17 kg/m2 NASIM ACOSTA MD [facility] 10-23-2022 10:00-0500 Body temperature 95.4 [degF] NASIM ACOSTA MD [facility] 10-23-2022 09:55-0500 Body temperature 95.43 [degF] NASIM ACOSTA MD [facility] 10-23-2022 09:50-0500 Body temperature 95.41 [degF] NASIM ACOSTA MD [facility] 10-23-2022 09:36-0500 SaO2% (BldA) [Mass fraction] 99.4 % NASIM ACOSTA MD [facility] 10-23-2022 07:35-0500 SaO2% (BldA) [Mass fraction] 94.8 % NASIM ACOSTA MD [facility] 10-23-2022 06:11-0500 Heart rate 90 /min NASIM ACOSTA MD [facility] 07-14-2022 09:50-0400 diastolic 95 mm[Hg] DR DIDIER MARCELO MD [facility] 07-14-2022 09:50-0400 Heart rate 78 /min DR DIDIER MARCELO MD [facility] 07-14-2022 09:50-0400 systolic 112 mm[Hg] DR DIDIER MARCELO MD [facility] 07-14-2022 09:48-0400 diastolic 95 mm[Hg] DR DIDIER MARCELO MD [facility] 07-14-2022 09:48-0400 Heart rate 79 /min DR DIDIER MARCELO MD [facility] 07-14-2022 09:48-0400 Respiratory rate 18 /min DR DIDIER MARCELO MD [facility] 07-14-2022 09:48-0400 systolic 113 mm[Hg] DR DIDIER MARCELO MD [address] [place] [address] 07-14-2022 09:44-0400 diastolic 95 mm[Hg] DR DIDIER MARCELO MD [address] [place] [address] 07-14-2022 09:44-0400 Heart rate 76 /min DR DIDIER MARCELO MD [address] [place] [address] 07-14-2022 09:44-0400 Respiratory rate 18 /min DR DIDIER MARCELO MD [address] [place] [address] 07-14-2022 09:44-0400 systolic 130 mm[Hg] DR DIDIER MARCELO MD [address] [place] [address] 07-14-2022 09:35-0400 Respiratory rate 18 /min DR DIDIER MARCELO MD [address] [place] [address] 07-14-2022 06:12-0400 Body height [address] DIDIER MARCELO MD [address] [place] [address] 07-14-2022 06:12-0400 Body temperature 97.52 [degF] DR DIDIER MARCELO MD [address] [place] [address] 07-14-2022 06:12-0400 Body weight 91.[address] DIDIER MARCELO MD [address] [place] [address] 07-14-2022 06:12-0400 Body weight 26 kg/m2 DR DIDIER MARCELO MD [address] [place] [address] Encounters Encounter Date Encounter Type Care Provider Facility Start: 10-11-2023 ambulatory JOSE A HAJI SCOTTY [facility] Start: 10-07-2023 End: 10-07-2023 ambulatory JOSE A HAJI [facility] Start: 04-12-2023 End: 05-28-2023 ambulatory EULA CORBETT [facility] Start: 02-16-2023 End: 02-16-2023 ambulatory JOSE A HAJI [facility] Start: 01-05-2023 End: 01-05-2023 ambulatory JOSE A HAJI [facility] Start: 11-24-2022 ambulatory MS. MUKESH ANDERSEN INSPECTOR [employer] Facility:A Start: 11-17-2022 End: 02-18-2023 ambulatory JOSE A HAJI [facility] Start: 11-04-2022 End: 11-05-2022 ambulatory MS. MUKESH ANDERSEN INSPECTOR [employer]ONDITIONING Facility:A Start: 11-04-2022 End: 11-04-2022 Patient encounter procedure MUKESH ANDERSEN [employer]OP BENDER TANK-INSPECTOR [employer]OD RECONDITIONING [facility] Start: 11-03-2022 End: 11-03-2022 ambulatory MUKESH ANDERSEN [facility] Start: 10-30-[address] JOSE A WARNER MD. Fa cility:R Start: 10-23-2022 End: 10-28-2022 Evaluation and management of inpatient NASIM ACOSTA MD Facility:A Start: 10-23-2022 End: 10-28-2022 Evaluation and management of inpatient NASIM ACOSTA MD [facility] Start: 10-14-2022 End: 10-15-[address] JOSE A WARNER MD. Facility:A Start: 09-01-2022 End: 09-02-2022 ambulatory NASIM ACOSTA MD Facility:A Start: 09-01-2022 End: 09-01-2022 Patient encounter procedure NASIM ACOSTA MD [facility] Start: 08-27-2022 End: 08-28-2022 ambulatory NASIM ACOSTA MD Facility:A Start: 08-27-2022 End: 08-27-2022 Patient encounter procedure NASIM ACOSTA MD [facility] Start: 07-14-2022 End: 07-14-[address] JOSE A WARNER MD. Facility:A Start: 07-14-2022 End: 07-14-[address] DIDIER MARCELO MD [facility] Start: 06-24-2022 ambulatory DIDIER MELENDREZ MD Faci lity:A Procedures Date Procedure Procedure Detail Performing Clinician Start: 10-07-2023 Urinalysis YASSER OMR AN Immunizations Immunization Date Immunization Notes Care Provider Fa cility 09-28-2022 influenza virus vacc ine, unspecified formulation NASIM ACOSTA MD [facility] 09-28-2022 SARS-CoV-2 CV19 mRNA-1273 bival stephie vax NASIM ACOSTA MD [facility] 09-28-2022 SARSCoV2 (CV19)mRNA-1273(6y+ bival stephie MUKESHMulu ANDERSEN HOOP BENDER TANK-INSPECTOR [employer] RECONDITIONING [facility] 10-03-2021 influenza virus vacc ine, unspecified formulation DR DIDIER MARCELO MD [facility] 09-28-2021 SARS-CoV-2 mRNA (tozinameran) vaccine DR DIDIER MARCELO MD [facility] 02-10-2021 SARS-CoV-2 mRNA (tozinameran) vaccine DR DIDIER MARCELO MD [facility] 01-16-2021 SARS-CoV-2 mRNA (tozinameran) vaccine DR DIDIER MARCELO MD [facility] 10-14-2020 influenza virus vacc ine, unspecified formulation DR DIDIER MARCELO MD [facility] Payers Date Payer Category Payer Medicaid [id number] 2023 Medicare [id number] 2022 Unknown [id number] 1955 Unknown [id number] 2.16.8 [id number] 1954 Unknown [id number] 2.16.8 [id number] 1954 Unknown [id number] 2.16.8 [id number] 1954 Unknown [id number] 2.16.8 [id number] 1954 Unknown [id number] 2.16.8 [id number] 1954 Unknown [id number] 2.16.8 [id number] 1954 Unknown [id number] 2.16.8 [id number] 1954 Unknown [id number] 2.16.8 [id number] 1954 Unknown [id number] 2.16.8 [id number] 1954 Unknown [id number] 2.16.8 [id number] 1954 Unknown [id number] 2.16.8 [id number] 1954 Unknown [id number] 2.16.84 [id number] 1954 Unknown [id number] 2.16.84 [id number] 1954 Unknown [id number] 2.16.84 [id number] 1954 Unknown [id number] 2.16.84 [id number] Social History Date Type Detail Facility Start: 01-09-2020 Tobacco smoking status Ex-smoker (fi nding) [facility] Functional Status Date Assessment Result Facility 10-28-2022 Functional Status Repositions se lf, Resting, Watching TV [facility] 10-28-2022 Functional Status Room check performed [facility] 10-28-2022 Functional [address] [facility] 10-28-2022 Functional Status [facility] 10-28-2022 Functional Status [facility] 10-28-2022 Functional Status [facility] 10-27-2022 Functional Status Skin Care Prev entative Intervention(s) padded oxygen tubing [facility] 10-27-2022 Functional Status SCD On/Re-applied bilat eral knee high [facility] 10-27-2022 Functional Status [facility] 10-27-2022 Functional Status CHG bath [facility] 10-27-2022 Functional Status [facility] 10-27-2022 Functional Status [facility] 10-26-2022 Functional Status [facility] 10-26-2022 Functional Status [facility] 10-26-2022 Functional Status Driving, Personal ADL, Work [facility] 10-26-2022 Functional Status [facility] 10-26-2022 Functional Status NPO Status ice chips an d sips taken [facility] 10-26-2022 Functional Status [facility] 10-26-2022 Functional Status Done [facility] 10-26-2022 Functional Status [facility] 10-25-2022 Functional Status [facility] 10-25-2022 Functional Status [facility] 10-25-2022 Functional Status [facility] 10-24-2022 Functional Status [facility] 10-23-2022 Functional Status Preventative Foam Drsg Location coccyx [facility] 10-23-2022 Functional Status [facility] 07-14-2022 Functional Status Up ad moses [facility] 07-14-2022 Functional Status [facility] 07-14-2022 Functional Status Patient Identi fied Identification band, Verbal [facility] 07-14-2022 Functional Status Maintained [facility] Mental Status Date Assessment Result Facility 10-28-2022 Mental Status Orientation Oriented x 4 [facility] 10-28-2022 Mental Status [facility] 10-28-2022 Mental Status [facility] 10-27-2022 Mental Status Orientation Assessment Orie nted x 4 [facility] 10-27-2022 Mental Status [facility] 10-27-2022 Mental Status [facility] 07-14-2022 Mental Status Oriented x 4 [facility] 07-14-2022 Mental Status [facility] Clinical Notes 07-14-2022 to 11-04-2022 LaboratoryRadiologyRadiologyRadiologyLaboratoryRadiologyLaboratoryRadiology Note Date & Type Note Facility 11-04-2022 Note ORIGINAL HISTORY: Pleural effusion COMPARISON: 7 days previously FINDINGS: Sternotomy wires are unchanged. The lungs are clear. The cardiac silhouette is within normal size limits. The pulmonary vasculature is unremarkable in appearance. IMPRESSION: Clear lungs. Interpreted by: Dimitry Carmen MD Preliminary Report By: Dimitry Carmen MD Electronically signed By Dimitry Carmen MD Dictated Date: 11/04/2022 1:05:48 PM Prelim Date: 11/04/2022 1:06:31 PM Sign Date: 11/04/2022 1:06:31 PM Ordering Provider: [facility] 11-04-2022 Note ORIGINAL HISTORY: Pleural effusion COMPARISON: 7 days previously FINDINGS: Sternotomy wires are unchanged. The lungs are clear. The cardiac silhouette is within normal size limits. The pulmonary vasculature is unremarkable in appearance. IMPRESSION: Clear lungs. Interpreted by: Dimitry Carmen MD Preliminary Report By: Dimitry Carmen MD Electronically signed By Dimitry Carmen MD Dictated Date: 11/04/2022 1:05:48 PM Prelim Date: 11/04/2022 1:06:31 PM Sign Date: 11/04/2022 1:06:31 PM Ordering Provider: [facility] 10-28-2022 Hospital Discharg e instructions Patient Education 10/28/2022 14:12:46 Form - Daily Weight Record Daily Weight Record It is important to weigh yourself daily. To do this: Make sure you use a reliable scale. Use the same scale each day. Keep this daily weight chart near your scale. Weigh yourself each morning at the same time. Before weighing yourself: ?Take off your shoes. ?Make sure you are wearing the same amount of clothing each day. Write down your weight in the spaces on the form. Compare today's weight to yesterday's weight. Bring this form with you to your follow-up visits with your health care provider. Call your health care provider if you have concerns about your weight, including rapid weight gain or loss. Date: Weight: Date: Weight: Date: Weight: Date: Weight: Date: Weight: Date: Weight: Date: Weight: Date: Weight: Date: Weight: Date: Weight: Date: Weight: Date: Weight: Date: Weight: Date: Weight: Date: Weight: Date: Weight: Date: Weight: Date: Weight: Date: Weight: Date: Weight: Date: Weight: Date: Weight: Date: Weight: Date: Weight: Date: Weight: Date: Weight: Date: Weight: Date: Weight: Date: Weight: Date: Weight: Date: Weight: Date: Weight: Date: Weight: Date: Weight: Date: Weight: Date: Weight: Date: Weight: Date: Weight: Date: Weight: Date: Weight: Date: Weight: Date: Weight: Date: Weight: Date: Weight: Date: Weight: Date: Weight: Date: Weight: Date: Weight: Date: Weight: Date: Weight: This information is not intended to replace advice given to you by your health care provider. Make sure you discuss any questions you have with your health care provider. Document Released: 01/20/2008 Document Revised: 11/07/2018 Document Reviewed: 11/07/2018 [employer] Patient Education 2020 [employer] 10/28/2022 14:12:46 Insulin Injection Instructions, Using Insulin Pens, Adult Insulin Injection Instructions, Using Insulin Pens, Adult A subcutaneous injection is a shot of medicine that is injected into the layer of fat and tissue between skin and muscle. People with type 1 diabetes must take insulin because their bodies do not make it. People with type 2 diabetes may need to take insulin. There are many different types of insulin. The type of insulin that you take may determine how many injections you give yourself and when you need to give the injections. Supplies needed: Soap and water to wash hands. Your insulin pen. A new, unused needle. Alcohol wipes. A disposal container that is meant for sharp items (sharps container), such as an empty plastic bottle with a cover. How to choose a site for injection The body absorbs insulin differently, depending on where the insulin is injected (injection site). It is best to inject insulin into the same body area each time (for example, always in the abdomen), but you should use a different spot in that area for each injection. Do not inject the insulin in the same spot each time. There are five main areas that can be used for injecting. These areas include: Abdomen. This is the preferred area. Front of thigh. Upper, outer side of thigh. Upper, outer side of arm. Upper, outer part of buttock. How to use an insulin pen First, follow the steps for Get ready, then continue with the steps for Inject the insulin. Get ready 1.Wash your hands with soap and water. If soap and water are not available, use hand test boring crew chief. 2.Before you give yourself an insulin injection, be sure to test your blood sugar level (blood glucose level) and write down that number. Follow any instructions from your health care provider about what to do if your blood glucose level is higher or lower than your normal range. 3.Check the expiration date and the type of insulin that is in the pen. 4.If you are using CLEAR insulin, check to see that it is clear and free of clumps. 5.If you are using CLOUDY insulin, do not shake the pen to get the injection ready. Instead, get it ready in one of these ways: Gently roll the pen between your palms several times. Tip the pen up and down several times. 6.Remove the cap from the insulin pen. 7.Use an alcohol wipe to clean the rubber tip of the pen. 8.Remove the protective paper tab from the disposable needle. Do not let the needle touch anything. 9.Screw a new, unused needle onto the pen. 10.Remove the outer plastic needle cover. Do not throw away the outer plastic cover yet. If the pen uses a special safety needle, leave the inner needle shield in place. If the pen does not use a special safety needle, remove the inner plastic cover from the needle. 11.Follow the playground official's instructions to prime the insulin pen with the volume of insulin needed. Hold the pen with the needle pointing up, and push the button on the opposite end of the pen until a drop of insulin appears at the needle tip. If no insulin appears, repeat this step. 12.Turn the button (dial) to the number of units of insulin that you will be injecting. Inject the insulin 1.Use an alcohol wipe to clean the site where you will be injecting the needle. Let the site air-dry. 2.Hold the pen in the palm of your writing hand like a pencil. 3.If directed by your health care provider, use your other hand to pinch and hold about an inch (2.5 cm) of skin at the injection site. Do not directly touch the cleaned part of the skin. 4.Gently but quickly, use your writing hand to put the needle straight into the skin. The needle should be at a 90-degree angle (perpendicular) to the skin. 5.When the needle is completely inserted into the skin, use your thumb or index finger of your writing hand to push the top button of the pen down all the way to inject the insulin. 6.Let go of the skin that you are pinching. Continue to hold the pen in place with your writing hand. 7.Wait 10 seconds, then pull the needle straight out of the skin. This will allow all of the insulin to go from the pen and needle into your body. 8.Carefully put the larger (outer) plastic cover of the needle back over the needle, then unscrew the capped needle and discard it in a sharps container, such as an empty plastic bottle with a cover. 9.Put the plastic cap back on the insulin pen. How to throw away supplies Discard all used needles in a puncture-proof sharps disposal container. You can ask your local pharmacy about where you can get this kind of disposal container, or you can use an empty plastic liquid laundry detergent bottle that has a cover. Follow the disposal regulations for the area where you live. Do not use any needle more than one time. Throw away empty disposable pens in the regular trash. Questions to ask your health care provider How often should I be taking insulin? How often should I check my blood glucose? What amount of insulin should I be taking at each time? What are the side effects? What should I do if my blood glucose is too high? What should I do if my blood glucose is too low? What should I do if I forget to take my insulin? What number should I call if I have questions? Where to find more information English Diabetes Association (ADA): www.diabetes.org English Association of Diabetes Educators (AADE) Patient Resources: https://www.diabeteseducator.org Summary A subcutaneous injection is a shot of medicine that is injected into the layer of fat and tissue between skin and muscle. Before you give yourself an insulin injection, be sure to test your blood sugar level (blood glucose level) and write down that number. Check the expiration date and the type of insulin that is in the pen. The type of insulin that you take may determine how many injections you give yourself and when you need to give the injections. It is best to inject insulin into the same body area each time (for example, always in the abdomen), but you should use a different spot in that area for each injection. This information is not intended to replace advice given to you by your health care provider. Make sure you discuss any questions you have with your health care provider. Document Released: 12/11/2016 Document Revised: 11/28/2018 Document Reviewed: 12/11/2016 [employer] Patient Education 2020 [employer]. 10/28/2022 14:12:46 Blood Glucose Monitoring, Adult Blood Glucose Monitoring, Adult Monitoring your blood sugar (glucose) is an important part of managing your diabetes (diabetes mellitus). Blood glucose monitoring involves checking your blood glucose as often as directed and keeping a record (log) of your results over time. Checking your blood glucose regularly and keeping a blood glucose log can: Help you and your health care provider adjust your diabetes management plan as needed, including your medicines or insulin. Help you understand how food, exercise, illnesses, and medicines affect your blood glucose. Let you know what your blood glucose is at any time. You can quickly find out if you have low blood glucose (hypoglycemia) or high blood glucose (hyperglycemia). Your health care provider will set individualized treatment goals for you. Your goals will be based on your age, other medical conditions you have, and how you respond to diabetes treatment. Generally, the goal of treatment is to maintain the following blood glucose levels: Before meals (preprandial): 80 130 mg/dL (4.4 7.2 mmol/L). After meals (postprandial): below 180 mg/dL (10 mmol/L). A1c level: less than 7%. Supplies needed: Blood glucose meter. Test strips for your meter. Each meter has its own strips. You must use the strips that came with your meter. A needle to prick your finger (lancet). Do not use a lancet more than one time. A device that holds the lancet (lancing device). A journal or log book to write down your results. How to check your blood glucose 1.Wash your hands with soap and water. 2.Prick the side of your finger (not the tip) with the lancet. Use a different finger each time. 3.Gently rub the finger until a small drop of blood appears. 4.Follow instructions that come with your meter for inserting the test strip, applying blood to the strip, and using your blood glucose meter. 5.Write down your result and any notes. Some meters allow you to use areas of your body other than your finger (alternative sites) to test your blood. The most common alternative sites are: Forearm. Thigh. Palm of the hand. If you think you may have hypoglycemia, or if you have a history of not knowing when your blood glucose is getting low (hypoglycemia unawareness), do not use alternative sites. Use your finger instead. Alternative sites may not be as accurate as the fingers, because blood flow is slower in these areas. This means that the result you get may be delayed, and it may be different from the result that you would get from your finger. Follow these instructions at home: Blood glucose log Every time you check your blood glucose, write down your result. Also write down any notes about things that may be affecting your blood glucose, such as your diet and exercise for the day. This information can help you and your health care provider: ?Look for patterns in your blood glucose over time. ?Adjust your diabetes management plan as needed. Check if your meter allows you to download your records to a computer. Most glucose meters store a record of glucose readings in the meter. If you have type 1 diabetes: Check your blood glucose 2 or more times a day. Also check your blood glucose: ?Before every insulin injection. ?Before and after exercise. ?Before meals. ?2 hours after a meal. ?Occasionally between 2:00 a.m. and 3:00 a.m., as directed. ?Before potentially dangerous tasks, like driving or using heavy machinery. ?At bedtime. You may need to check your blood glucose more often, up to 6 10 times a day, if you: ?Use an insulin pump. ?Need multiple daily injections (MDI). ?Have diabetes that is not well-controlled. ?Are ill. ?Have a history of severe hypoglycemia. ?Have hypoglycemia unawareness. If you have type 2 diabetes: If you take insulin or other diabetes medicines, check your blood glucose 2 or more times a day. If you are on intensive insulin therapy, check your blood glucose 4 or more times a day. Occasionally, you may also need to check between 2:00 a.m. and 3:00 a.m., as directed. Also check your blood glucose: ?Before and after exercise. ?Before potentially dangerous tasks, like driving or using heavy machinery. You may need to check your blood glucose more often if: ?Your medicine is being adjusted. ?Your diabetes is not well-controlled. ?You are ill. General tips Always keep your supplies with you. If you have questions or need help, all blood glucose meters have a 24-hour hotline phone number that you can call. You may also contact your health care provider. After you use a few boxes of test strips, adjust (calibrate) your blood glucose meter by following instructions that came with your meter. Contact a health care provider if: Your blood glucose is at or above 240 mg/dL (13.3 mmol/L) for 2 days in a row. You have been sick or have had a fever for 2 days or longer, and you are not getting better. You have any of the following problems for more than 6 hours: ?You cannot eat or drink. ?You have nausea or vomiting. ?You have diarrhea. Get help right away if: Your blood glucose is lower than 54 mg/dL (3 mmol/L). You become confused or you have trouble thinking clearly. You have difficulty breathing. You have moderate or large ketone levels in your urine. Summary Monitoring your blood sugar (glucose) is an important part of managing your diabetes (diabetes mellitus). Blood glucose monitoring involves checking your blood glucose as often as directed and keeping a record (log) of your results over time. Your health care provider will set individualized treatment goals for you. Your goals will be based on your age, other medical conditions you have, and how you respond to diabetes treatment. Every time you check your blood glucose, write down your result. Also write down any notes about things that may be affecting your blood glucose, such as your diet and exercise for the day. This information is not intended to replace advice given to you by your health care provider. Make sure you discuss any questions you have with your health care provider. Document Released: 11/10/2004 Document Revised: 09/01/2019 Document Reviewed: 04/19/2017 [employer] Patient Education 2020 [employer] 10/28/2022 14:12:46 8- Open Heart Surgery (Bypass or Valve) 12/2019 (Custom) OPEN HEART SURGERY (Bypass or Valve Surgery) General Guidelines for Care After Surgery Please read the instructions below and refer to it during the next few weeks. Recovering from surgery is different for everyone. Some people feel great after 3 or 4 weeks and others take longer depending on their condition before the surgery. These are general guidelines on how to care for yourself but always follow your doctor s instructions. If you have questions or problems after you go home, please call your doctor. MEDICINES You have the list of medicine you need to take at home. Be sure you understand this list and keep a copy with you at all times. Never add or stop medicine unless you check with your doctor first. Call the doctor if you have any of the following problems: If you start throwing up or have stomach pain or diarrhea If you feel dizzy or lightheaded when you stand up If you are confused or have trouble walking If you feel like your heart is racing and beating fast or if you feel like it is beating too slow If you get a rash If you notice bleeding or lots of bruising If you are taking a blood thinner such as warfarin after having valve surgery, please read the handout that has been given to you by the nurse. PAIN AFTER SURGERY You might feel some pain after your heart surgery. Please take your pain medicine if you need it following the directions on the bottle. If your pain becomes worse or if you are having trouble breathing, call your surgeon. As you heal and the pain begins to go away, take your pain medicine less often Pain medicine will sometimes cause you to become constipated. It is OK to take an over the counter stool softener. Eating lots of fruit and vegetables can also help with constipation. CARE OF YOUR INCISIONS Pay attention to your incisions and shower every day after you go home. Some swelling, bruising or redness is normal and will get better with time. Do not take a bath until all of your incisions are healed. Wash the incisions gently with antibacterial soap and water in the shower Use a clean washcloth every day Wash your chest incision first, then wash any arm incision, and last wash leg incisions Wash the rest of your body after cleaning all of your incisions Never use any cream or lotion on your incisions until they are healed all the way. Keep your incisions clean and dry Do not cover the incision with a dressing unless you are having drainage If you have ernie, they will be taken out at the office visit You might notice some swelling or a lump at the top of the chest incision, but this is normal. Call your surgeon right away if you notice clicking in your chest. Your legs might swell after your surgery so follow these tips: Keep legs elevated when sitting. As a rule, it is best to elevate them above the level of your heart. For instance, if you are lying flat on a sofa, place your legs up on the arm of the sofa. Do not cross your legs. Wear your elastic stockings during the day for 4 weeks. Put them on before you get out of bed in the morning and then take them off at night. These will help keep your legs from swelling. ACTIVITY It is important to keep moving after heart surgery, but you will need to take rest periods throughout the day. Every day, increase your activity as you are able. Walk as much as possible, and gradually increase your distance every day. It will be normal to be sore for a couple of weeks after surgery. Get medical attention if your condition seems to be getting worse instead of better No heavy housework or heavy work outdoors You may use the stairs as tolerated Avoid lifting anything greater than 10 pounds Avoid any pushing or pulling with your arms. Avoid overexertion and take rest periods when you get tired Do not drive until your doctor tells you it is OK, typically 4 weeks. It is fine to go upstairs but take it slow and do not pull yourself up with the handrail. Avoid opening windows and opening tight jar lids. Do not bear down with bowel movements and do not hold your breath. Check with the surgeon before returning to work. Waiting 1-3 weeks is recommended for sexual intercourse. When you can walk briskly or climb 2 flights of stairs without pain or shortness of breath, you may be ready for sex. WEIGHT Weigh yourself every morning and write it down on paper. Use the same scale and weigh at the same time each day. Tell your doctor if you gain 2 pounds or more in one day. EATING HEALTHY Your doctor wants you to follow a heart healthy diet which is low in salt and low in fat. Your nurse has given you a book all about the diet you will need to follow. If you are diabetic or overweight, you will be given a calorie restriction too. If constipation is a problem, add more bran or fiber to your diet and you may take a mild dhvu-swa-cxyndnk laxative like Milk of Magnesia . CARDIAC REHABILITATION Getting involved in cardiac rehab after your heart surgery is the best thing that you can do to feel better and stronger at a faster rate. The program is medically supervised to help patients recover and improve mental and physical function. It also helps reduce stress and can decrease your risk of having more heart problems. Your doctor will let you know when you can begin the program. SMOKING Give up smoking after heart surgery or it may cancel out the value of having your surgery. It may also delay the healing process. If you need help to quit, please call your surgeon or your heart doctor. [place] [facility] also has a free stop smoking program called Give it Up and if you want to attend, please call [phone] ([phone]). Call the Surgeon If your incisions are red, oozing pus, or bleeding or if the edges are Call if there is a clicking in your sternum. Call if you are more short of breath. Call if you have dizziness Call if you have a fever of 101 or higher. Call if you have more ankle swelling, pain in your leg, or pain in your calf. Call the Heart Doctor (Industrial Relations Officer) If your heart beats are irregular or are fast. If you have any questions about your medicine. If you gain 2 or more pounds in one day. If you feel dizzy or lightheaded when you first stand up. If you have any questions about getting help at home after you are discharged. If you have painful, frequent or bloody urination. GET IMMEDIATE MEDICAL HELP IF YOU HAVE: Chest pain, jaw pain, sweating, dizziness or severe shortness of breath, you could be having a heart attack. Please dial 9-1-1 immediately. Follow Up Care 09/23/2022 14:49:19 With:JOSE A WARNER, Infectious Disease, Infectious Disease Group Address: [address] [place] [address] [address] [facility] [address]- [phone] Business (1) When:11/06/2022 16:00:00 Comments:KEEP THIS PREVIOUSLY SCHEDULED APPOINTMENT With:CHAYO HUFF PA-C Address: [address] [place] [address] [address] [facility] [place] [address]- [phone] When:11/24/2022 11:00:00 With:MUKESH ANDERSEN Address: [address] [facility] [address] [facility] [place] [address]- Business (1) When:11/04/2022 14:00:00 Comments:Please arrive one hour prior to appointment to have a chest x ray done in the radiology department, [facility] With:[facility] has been set up for you. please call [phone] or After Hours [phone] for questions regarding your equipment. Address: When:1-2 days With:[facility] to follow, Will call to schedule first visit Address: [place], [place] [phone] When:1-2 days Comments:Home care Nurse With:Rosa Maria TERAN Nurse Meeting Manager, will call you and/or your family after your release from the hospital. Office Hours: Wednesday thru Wednesday 7:30am - 4pm Address: When:1-2 days With:Cardiac Rehab- [facility] Address: [facility] [address] [address]- When: Unknown Comments:The Cardiac Rehab department will call you to schedule you for phase 2. We left you a brochure with information about cardiac rehab. If you have any questions please call [phone]. With:WILLIAM VIERA MD, [facility], Surgery, Vascular Surgeons Address: [address] [place] [address] [address] [facility] [place] [address] [phone] When: Unknown Comments:Follow-up as scheduled [facility] 10-28-2022 Note Discharge Instructions Thank you for allowing [facility] to assist you with your healthcare needs. The following is important discharge information regarding your hospital visit. 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 ARTERY (CORONARY ARTERY DISEASE) (Renamed from CAD (CORONARY ARTERY DISEASE), MORONGO CORONARY ARTERY) S/P CABG x1 GUTIERREZ to LAD off pump 10/23/2022 EF 61% DIABETES MELLITUS (Renamed from DIABETES) HgbA1C 12 HYPERLIPIDEMIA (Renamed from HLD (HYPERLIPIDEMIA)) HYPERTENSION, UNSPECIFIED (Renamed from ESSENTIAL (PRIMARY) HYPERTENSION) HISTORY OF THROAT CANCER S/P chemo and radiation Carotid stenosis, right S/P Right carotid angiogram, right carotid stent 10/26/2022 History of cerebral palsy Hx of head and neck radiation What to do next Instructions From Your Doctor Shower daily Ambulate at least 4 times a day as tolerates elevate legs above chest for 15 minutes twice a day for swelling Continue incentive spirometer Weigh daily in the morning after voiding, notify physician if weight gain greater than 3-5 lbs in 1-2 days Remove steri strips from chest as they loosen, remove remaining steri strips October 30 with shower Scheduled Follow-Up Appointments Appointment Type When With Where Contact InformationCTS OV Post Op 11/04/2022 02:00 PM EST MUKESH ANDERSEN APRN-[place] [facility] Cardiothoracic Surgery CV OV 11/24/2022 11:00 AM EST CHAYO HUFF PA-C [facility] Follow Up Appointments Follow Up with CHAYO HUFF PA-C When 11/24/2022 11:00 AM EST Where: [address] [place] [address]- [phone] Follow Up with JOSE A WARNER, Infectious Disease, Infectious Disease Group When 11/06/2022 04:00 PM EST Why: KEEP THIS PREVIOUSLY SCHEDULED APPOINTMENT Where: [address] [facility] [address] [phone] Business (1) Follow Up with MUKESH ANDERSEN When 11/04/2022 02:00 PM EST Why: Please arrive one hour prior to appointment to have a chest x ray done in the radiology department, [facility] Where: [address] [facility] [place] [address]- Business (1) Follow Up with [facility] has been set up for you. please call [phone] or After Hours [phone] for questions regarding your equipment. When Within 1-2 days Where: Follow Up with [facility] to follow, Will call to schedule first visit When Within 1-2 days Why: Home care Nurse Where: [place], [place] [phone] Follow Up with Rosa Maria TERAN Nurse Meeting Manager, will call you and/or your family after your release from the hospital. Office Hours: Wednesday thru Wednesday 7:30am - 4pm When Within 1-2 days Where: Follow Up with Cardiac Rehab- [facility] When Why: The Cardiac Rehab department will call you to schedule you for phase 2. We left you a brochure with information about cardiac rehab. If you have any questions please call [phone]. Where: [facility] [address] [place] [address]- Follow Up with WILLIAM VIERA MD, [facility], Surgery, Vascular Surgeons When Why: Follow-up as scheduled Where: [address] [facility] [address] [facility] [place] [address] [phone] The Following Activity and Diet Have Been Ordered for You Discharge Activity - Ordered -- Lifting Restricted less than 10 pounds May Shower, 10/28/22 11:05:00 EST Discharge Driving Restrictions - Ordered -- * Other, specify in special instructions, No driving for 6 weeks, 10/28/22 11:05:00 EST Discharge Diet - Ordered -- Type of Diet: Regular, low cholesterol ADA diet, 10/28/22 11:05:00 EST The Following Equipment Has Been Ordered for You Discharge Home Equipment Discharge Wound Care - Ordered -- Dressing Type: Open to Air, Sternum, Shower daily. Wash incisions with soap and water. Keep clean and dry, 10/28/22 11:05:00 EST The Following Treatments Have Been Ordered for You Discharge Labs Discharge Outpatient Labwork - Ordered -- bmp, cbc, cabg and diurtic therapy, Results Notify to: NASIM ACOSTA MD, Please have home health care draw on 11/03, 10/28/22 11:05:00 EST Discharge Radiology Discharge Outpatient Radiology - Ordered -- PA/Lat CXR, pleural effusion, Results Notify to: NASIM ACOSTA MD, Please have chest x ray done on 11/04 at the [facility] radiology department one hour prior to appointment, 10/28/22 11:05:00 EST Other Therapies No qualifying data available. Post Acute Orders No qualifying data available. Someone Will Contact You Regarding These Home Health Referrals No home referrals have been ordered for you. No one will call you. Allergies NKA Medications Please ask your primary doctor or pharmacist before taking any other medication not listed, including over the counter drugs, herbal medications, vitamins and or supplements as they may interact with your home medications. What How Much When Instructions Last Dose New acetaminophen (Tylenol 325 mg oral capsule) 650 Milligram by mouth Every 4 hours as needed for Pain, scale 1-6 New amiodarone (amiodarone 200 mg oral tablet) 1 tab(s) by mouth Twice daily with meals Duration: 6 week(s) Pickup at [place] [address] Start 11/05/22 in the AM. New amiodarone (amiodarone 200 mg oral tablet) 2 tab(s) by mouth Twice daily with meals Duration: 7 Days Pickup at [place] [address] Start 10/29/22 in the AM. New atorvastatin (atorvastatin 40 mg oral tablet) 1 tab(s) by mouth Once a day Refills: 1 Pickup at [place] [address] Take this afternoon. New bumetanide (bumetanide 2 mg oral tablet) 1 tab(s) by mouth Once a day Duration: 7 Days Pickup at [place] [address] Start 10/29/22 in the AM. New clopidogrel (Plavix 75 mg oral tablet) 1 tab(s) by mouth Once a day Refills: 1 Pickup at [place] [address] Start 10/29/22 in the AM. New insulin degludec (Tresiba FlexTouch 100 units/ mL 3 mL subcutaneous solution) 20 unit(s) Subcutaneous Once a day Refills: 2 Pickup at [place] [address] Start 10/28/22 in the afternoon. New levothyroxine (levothyroxine 50 mcg (0.05 mg) oral tablet) 1 tab(s) by mouth Once a day before a meal Refills: 1 Pickup at [place] [address] Start 10/29/22 in the AM. New multivitamin with iron (Multiple Vitamins with Folic Acid and Iron oral tablet) 1 tab(s) by mouth Once a day Pickup at [place] [facility] [id number] Start 10/29/22 in the AM. New potassium chloride (potassium chloride 20 mEq oral tablet, extended release) 1 tab(s) by mouth Two (2) times a day Duration: 7 Days Pickup at [facility] Start 10/29/22 in the AM. Changed lisinopril (lisinopril 2.5 mg oral tablet) 1 tab(s) by mouth Two (2) times a day Pickup at [facility] Start 10/28/22 in the PM. Changed metoprolol (Metoprolol Tartrate 50 mg oral tablet) 1 tab(s) by mouth Two (2) times a day Pickup at [facility] Start 10/28/22 in the PM Unchanged aspirin (Aspir-Low 81 mg oral delayed release tablet) 1 tab(s) by mouth Once a day (in the morning) Start 10/29/22 in the AM Unchanged calcium carbonate (calcium (as carbonate) 600 mg oral tablet) 1 tab(s) by mouth Once a day (in the morning) Start 10/29/22 in the AM Unchanged empagliflozin (Jardiance 25 mg oral tablet) 1 tab(s) by mouth Once a day (in the morning) Start 10/29/22 in the AM Unchanged magnesium glycinate (magnesium glycinate 200 mg oral tablet) 2 tab(s) by mouth Once a day (in the morning) Start 10/29/22 in the AM Unchanged metFORMIN (metFORMIN 1000 mg oral tablet) 1 tab(s) by mouth Twice daily with meals Start 10/28/22 in the PM Unchanged nitroGLYcerin (nitroglycerin 0.4 mg sublingual spray) 1 spray(s) under the tongue Every 5 minutes as needed for as needed for chest pain Pharmacy Information [place] [address]: [address] [place], [place] [id number] [phone] What How Much When Comments Stop Taking glimepiride (Amaryl 4 mg oral tablet) 2 tab(s) by mouth Once a day (in the morning) Stop Taking herbal/ nutritional product (Cinnamon 1000 mg capsule) 2 cap by mouth Once a day (in the morning) Stop Taking isosorbide mononitrate (isosorbide mononitrate 60 mg oral tablet, extended release) 1 tab(s) by mouth Once a day (in the morning) TAKE 1 TABLET BY MOUTH ONCE DAILY Stop Taking Misc Medication 1 tab(s) by mouth Once a day (in the morning) CO Q 10 400mg Stop Taking nateglinide (nateglinide 120 mg oral tablet) 1 tab(s) by mouth Three (3) times a day before meals Stop Taking omega-3 polyunsaturated fatty acids (Ultra Darek Krill Oil 500 mg oral capsule) 1 cap by mouth Two (2) times a day Stop Taking simvastatin (simvastatin 80 mg oral tablet (NF)) 1 tab(s) by mouth Daily at bedtime Please take this list to your next doctor s visit. Bring all medications you take, including over the counter medications, herbals and other supplements with you to your doctor s visit. Patients and families are reminded to discard old lists and to update any records with all medication providers or retail pharmacies. Education Materials Daily Weight Record It is important to weigh yourself daily. To do this: Make sure you use a reliable scale. Use the same scale each day. Keep this daily weight chart near your scale. Weigh yourself each morning at the same time. Before weighing yourself: ? Take off your shoes. ? Make sure you are wearing the same amount of clothing each day. Write down your weight in the spaces on the form. Compare today's weight to yesterday's weight. Bring this form with you to your follow-up visits with your health care provider. Call your health care provider if you have concerns about your weight, including rapid weight gain or loss. Date: Weight: Date: Weight: Date: Weight: Date: Weight: Date: Weight: Date: Weight: Date: Weight: Date: Weight: Date: Weight: Date: Weight: Date: Weight: Date: Weight: Date: Weight: Date: Weight: Date: Weight: Date: Weight: Date: Weight: Date: Weight: Date: Weight: Date: Weight: Date: Weight: Date: Weight: Date: Weight: Date: Weight: Date: Weight: Date: Weight: Date: Weight: Date: Weight: Date: Weight: Date: Weight: Date: Weight: Date: Weight: Date: Weight: Date: Weight: Date: Weight: Date: Weight: Date: Weight: Date: Weight: Date: Weight: Date: Weight: Date: Weight: Date: Weight: Date: Weight: Date: Weight: Date: Weight: Date: Weight: Date: Weight: Date: Weight: Date: Weight: Date: Weight: This information is not intended to replace advice given to you by your health care provider. Make sure you discuss any questions you have with your health care provider. Document Released: 01/20/2008 Document Revised: 11/07/2018 Document Reviewed: 11/07/2018 Else[employer] Patient Education 2020 [employer] Insulin Injection Instructions, Using Insulin Pens, Adult A subcutaneous injection is a shot of medicine that is injected into the layer of fat and tissue between skin and muscle. People with type 1 diabetes must take insulin because their bodies do not make it. People with type 2 diabetes may need to take insulin. There are many different types of insulin. The type of insulin that you take may determine how many injections you give yourself and when you need to give the injections. Supplies needed: Soap and water to wash hands. Your insulin pen. A new, unused needle. Alcohol wipes. A disposal container that is meant for sharp items (sharps container), such as an empty plastic bottle with a cover. How to choose a site for injection The body absorbs insulin differently, depending on where the insulin is injected (injection site). It is best to inject insulin into the same body area each time (for example, always in the abdomen), but you should use a different spot in that area for each injection. Do not inject the insulin in the same spot each time. There are five main areas that can be used for injecting. These areas include: Abdomen. This is the preferred area. Front of thigh. Upper, outer side of thigh. Upper, outer side of arm. Upper, outer part of buttock. How to use an insulin pen First, follow the steps for Get ready, then continue with the steps for Inject the insulin. Get ready 1. Wash your hands with soap and water. If soap and water are not available, use hand test boring crew chief. 2. Before you give yourself an insulin injection, be sure to test your blood sugar level (blood glucose level) and write down that number. Follow any instructions from your health care provider about what to do if your blood glucose level is higher or lower than your normal range. 3. Check the expiration date and the type of insulin that is in the pen. 4. If you are using CLEAR insulin, check to see that it is clear and free of clumps. 5. If you are using CLOUDY insulin, do not shake the pen to get the injection ready. Instead, get it ready in one of these ways: Gently roll the pen between your palms several times. Tip the pen up and down several times. 6. Remove the cap from the insulin pen. 7. Use an alcohol wipe to clean the rubber tip of the pen. 8. Remove the protective paper tab from the disposable needle. Do not let the needle touch anything. 9. Screw a new, unused needle onto the pen. 10. Remove the outer plastic needle cover. Do not throw away the outer plastic cover yet. If the pen uses a special safety needle, leave the inner needle shield in place. If the pen does not use a special safety needle, remove the inner plastic cover from the needle. 11. Follow the playground official's instructions to prime the insulin pen with the volume of insulin needed. Hold the pen with the needle pointing up, and push the button on the opposite end of the pen until a drop of insulin appears at the needle tip. If no insulin appears, repeat this step. 12. Turn the button (dial) to the number of units of insulin that you will be injecting. Inject the insulin 1. Use an alcohol wipe to clean the site where you will be injecting the needle. Let the site air-dry. 2. Hold the pen in the palm of your writing hand like a pencil. 3. If directed by your health care provider, use your other hand to pinch and hold about an inch (2.5 cm) of skin at the injection site. Do not directly touch the cleaned part of the skin. 4. Gently but quickly, use your writing hand to put the needle straight into the skin. The needle should be at a 90-degree angle (perpendicular) to the skin. 5. When the needle is completely inserted into the skin, use your thumb or index finger of your writing hand to push the top button of the pen down all the way to inject the insulin. 6. Let go of the skin that you are pinching. Continue to hold the pen in place with your writing hand. 7. Wait 10 seconds, then pull the needle straight out of the skin. This will allow all of the insulin to go from the pen and needle into your body. 8. Carefully put the larger (outer) plastic cover of the needle back over the needle, then unscrew the capped needle and discard it in a sharps container, such as an empty plastic bottle with a cover. 9. Put the plastic cap back on the insulin pen. How to throw away supplies Discard all used needles in a puncture-proof sharps disposal container. You can ask your local pharmacy about where you can get this kind of disposal container, or you can use an empty plastic liquid laundry detergent bottle that has a cover. Follow the disposal regulations for the area where you live. Do not use any needle more than one time. Throw away empty disposable pens in the regular trash. Questions to ask your health care provider How often should I be taking insulin? How often should I check my blood glucose? What amount of insulin should I be taking at each time? What are the side effects? What should I do if my blood glucose is too high? What should I do if my blood glucose is too low? What should I do if I forget to take my insulin? What number should I call if I have questions? Where to find more information [place] Diabetes Association (ADA): www.diabetes.org [employer] Association of Diabetes Educators (AADE) Patient Resources: https://www.diabeteseducator.org Summary A subcutaneous injection is a shot of medicine that is injected into the layer of fat and tissue between skin and muscle. Before you give yourself an insulin injection, be sure to test your blood sugar level (blood glucose level) and write down that number. Check the expiration date and the type of insulin that is in the pen. The type of insulin that you take may determine how many injections you give yourself and when you need to give the injections. It is best to inject insulin into the same body area each time (for example, always in the abdomen), but you should use a different spot in that area for each injection. This information is not intended to replace advice given to you by your health care provider. Make sure you discuss any questions you have with your health care provider. Document Released: 12/11/2016 Document Revised: 11/28/2018 Document Reviewed: 12/11/2016 [employer] Patient Education 2020 [employer]. Blood Glucose Monitoring, Adult Monitoring your blood sugar (glucose) is an important part of managing your diabetes (diabetes mellitus). Blood glucose monitoring involves checking your blood glucose as often as directed and keeping a record (log) of your results over time. Checking your blood glucose regularly and keeping a blood glucose log can: Help you and your health care provider adjust your diabetes management plan as needed, including your medicines or insulin. Help you understand how food, exercise, illnesses, and medicines affect your blood glucose. Let you know what your blood glucose is at any time. You can quickly find out if you have low blood glucose (hypoglycemia) or high blood glucose (hyperglycemia). Your health care provider will set individualized treatment goals for you. Your goals will be based on your age, other medical conditions you have, and how you respond to diabetes treatment. Generally, the goal of treatment is to maintain the following blood glucose levels: Before meals (preprandial): 80 130 mg/dL (4.4 7.2 mmol/L). After meals (postprandial): below 180 mg/dL (10 mmol/L). A1c level: less than 7%. Supplies needed: Blood glucose meter. Test strips for your meter. Each meter has its own strips. You must use the strips that came with your meter. A needle to prick your finger (lancet). Do not use a lancet more than one time. A device that holds the lancet (lancing device). A journal or log book to write down your results. How to check your blood glucose 1. Wash your hands with soap and water. 2. Prick the side of your finger (not the tip) with the lancet. Use a different finger each time. 3. Gently rub the finger until a small drop of blood appears. 4. Follow instructions that come with your meter for inserting the test strip, applying blood to the strip, and using your blood glucose meter. 5. Write down your result and any notes. Some meters allow you to use areas of your body other than your finger (alternative sites) to test your blood. The most common alternative sites are: Forearm. Thigh. Palm of the hand. If you think you may have hypoglycemia, or if you have a history of not knowing when your blood glucose is getting low (hypoglycemia unawareness), do not use alternative sites. Use your finger instead. Alternative sites may not be as accurate as the fingers, because blood flow is slower in these areas. This means that the result you get may be delayed, and it may be different from the result that you would get from your finger. Follow these instructions at home: Blood glucose log Every time you check your blood glucose, write down your result. Also write down any notes about things that may be affecting your blood glucose, such as your diet and exercise for the day. This information can help you and your health care provider: ? Look for patterns in your blood glucose over time. ? Adjust your diabetes management plan as needed. Check if your meter allows you to download your records to a computer. Most glucose meters store a record of glucose readings in the meter. If you have type 1 diabetes: Check your blood glucose 2 or more times a day. Also check your blood glucose: ? Before every insulin injection. ? Before and after exercise. ? Before meals. ? 2 hours after a meal. ? Occasionally between 2:00 a.m. and 3:00 a.m., as directed. ? Before potentially dangerous tasks, like driving or using heavy machinery. ? At bedtime. You may need to check your blood glucose more often, up to 6 10 times a day, if you: ? Use an insulin pump. ? Need multiple daily injections (MDI). ? Have diabetes that is not well-controlled. ? Are ill. ? Have a history of severe hypoglycemia. ? Have hypoglycemia unawareness. If you have type 2 diabetes: If you take insulin or other diabetes medicines, check your blood glucose 2 or more times a day. If you are on intensive insulin therapy, check your blood glucose 4 or more times a day. Occasionally, you may also need to check between 2:00 a.m. and 3:00 a.m., as directed. Also check your blood glucose: ? Before and after exercise. ? Before potentially dangerous tasks, like driving or using heavy machinery. You may need to check your blood glucose more often if: ? Your medicine is being adjusted. ? Your diabetes is not well-controlled. ? You are ill. General tips Always keep your supplies with you. If you have questions or need help, all blood glucose meters have a 24-hour hotline phone number that you can call. You may also contact your health care provider. After you use a few boxes of test strips, adjust (calibrate) your blood glucose meter by following instructions that came with your meter. Contact a health care provider if: Your blood glucose is at or above 240 mg/dL (13.3 mmol/L) for 2 days in a row. You have been sick or have had a fever for 2 days or longer, and you are not getting better. You have any of the following problems for more than 6 hours: ? You cannot eat or drink. ? You have nausea or vomiting. ? You have diarrhea. Get help right away if: Your blood glucose is lower than 54 mg/dL (3 mmol/L). You become confused or you have trouble thinking clearly. You have difficulty breathing. You have moderate or large ketone levels in your urine. Summary Monitoring your blood sugar (glucose) is an important part of managing your diabetes (diabetes mellitus). Blood glucose monitoring involves checking your blood glucose as often as directed and keeping a record (log) of your results over time. Your health care provider will set individualized treatment goals for you. Your goals will be based on your age, other medical conditions you have, and how you respond to diabetes treatment. Every time you check your blood glucose, write down your result. Also write down any notes about things that may be affecting your blood glucose, such as your diet and exercise for the day. This information is not intended to replace advice given to you by your health care provider. Make sure you discuss any questions you have with your health care provider. Document Released: 11/10/2004 Document Revised: 09/01/2019 Document Reviewed: 04/19/2017 [employer] Patient Education 2020 [employer]. Coronary Artery Bypass Grafting Coronary artery bypass grafting (CABG) is a surgery to bypassor to fix arteries of the heart (coronary arteries) that are narrow or blocked. This narrowing is usually the result of a buildup of fatty deposits (plaques) in the whiting of the vessels. The coronary arteries supply the heart with the oxygen and nutrients that it needs to pump blood through your body. In this surgery, a section of blood vessel from another part of the body (usually the chest, arm, or leg) is removed and then placed where it will allow blood to flow around the damaged part of the coronary artery. The new section of blood vessel is called the graft. Tell a health care provider about: Any allergies you have. All medicines you are taking or using, including steroids, blood thinners, vitamins, herbs, eye drops, creams, and eyxd-igt-dnbuxcb medicines. Any problems you or family members have had with anesthetic medicines. Any blood disorders you have. Any surgeries you have had. Any medical conditions you have. Whether you are or may be . What are the risks? Generally, this is a safe procedure. However, problems may occur, including: Bleeding, which may require transfusions. Infection. Allergic reactions to medicines or dyes. Pain at the surgical site. Damage to other structures or organs. Short-term memory loss, confusion, and personality changes. Heart rhythm problems (arrhythmias). Stroke. Heart attack during or after surgery. Kidney failure. What happens before the procedure? Staying hydrated Follow instructions from your health care provider about hydration, which may include: Up to 2 hours before the procedure you may continue to drink clear liquids, such as water, clear fruit juice, black coffee, and plain tea. Eating and drinking Follow instructions from your health care provider about eating and drinking, which may include: 8 hours before the procedure stop eating heavy meals or foods, such as meat, fried foods, or fatty foods. 6 hours before the procedure stop eating light meals or foods, such as toast or cereal. 6 hours before the procedure stop drinking milk or drinks that contain milk. 2 hours before the procedure stop drinking clear liquids. Medicines Take quyw-rek-lwhdopd and prescription medicines only as told by your health care provider. Ask your health care provider about: ? Changing or stopping your regular medicines. This is especially important if you are taking diabetes medicines or blood thinners. You may be asked to start new medicines and stop taking others. Do not stop medicines or adjust dosages on your own. ? Taking medicines such as aspirin and ibuprofen. These medicines can thin your blood. Do not take these medicines unless your health care provider tells you to take them. ? Taking flqy-avu-izuganc medicines, vitamins, herbs, and supplements. General instructions Ask your health care provider: ? How your surgical site will be marked or identified. ? What steps will be taken to help prevent infection. These may include: ? Removing hair at the surgery site. ? Washing skin with a germ-killing soap. ? Taking antibiotic medicine. You may be asked to shower with a germ-killing soap. For 3 6 weeks before the procedure, do not use any products that contain nicotine or tobacco, such as cigarettes, e-cigarettes, and chewing tobacco. Quitting smoking is one of the best things you can do for your heart health. If you need help quitting, ask your health care provider. Talk with your health care provider about where the grafts will be taken from for your surgery. What happens during the procedure? An IV will be inserted into one of your veins. You will be given one or more of the following: ? A medicine to help you relax (sedative). ? A medicine to make you fall asleep (general anesthetic). An incision will be made down the front of the chest through the breastbone (sternum). The sternum will be opened so the surgeon can see the heart. You may or may not be placed on a heart-lung bypass machine. If this machine is used, your heart will be temporarily stopped. The machine will provide oxygen to your blood while the surgeon works on your heart. If the machine is not used, it is called beating heart bypass surgery. A section of blood vessel will be removed from another part of your body (usually the chest, arm, or leg). The blood vessel will be attached above and below the blocked artery of your heart. This may be done on more than one artery of the heart. When the bypass is done, you will be taken off the heart-lung machine if it was used. If your heart was stopped, it will be restarted and will take over again normally. Your chest will be closed with special surgical wire to hold your bones together for healing. Your incision(s) will be closed with stitches (sutures), skin glue, or adhesive strips. Bandages (dressings) will be placed over the incision(s). Tubes will remain in your chest and will be connected to a suction device to help drain fluid and reinflate the lungs. The procedure may vary among health care providers and hospitals. What happens after the procedure? Your blood pressure, heart rate, breathing rate, and blood oxygen level will be monitored until you leave the hospital. You may wake up with a tube in your throat to help your breathing. You may be connected to a breathing machine. You will not be able to talk while the tube is in place. The tube will be taken out as soon as it is safe. You will be groggy and may have some pain. You will be given pain medicine to help control the pain. You may be in the intensive care unit for 1 2 days. You may be given oxygen to help you breathe. You will be shown how to do deep breathing exercises. You may have to wear compression stockings. These stockings help to prevent blood clots and reduce swelling in your legs. You may be given new medicines to take after your surgery. Cardiac rehabilitation will be started while you are in the hospital. This may include education and exercises to help you recover from your surgery. Summary In this procedure, a section of blood vessel from another part of the body (usually the chest, arm, or leg) is removed and then placed where it will allow blood to bypass the narrowed or blocked part of the coronary artery. For 3 6 weeks before the procedure, do not use any products that contain nicotine or tobacco, such as cigarettes, e-cigarettes, and chewing tobacco. If you need help quitting, ask your health care provider. You may or may not be placed on a heart-lung bypass machine during the surgery. If used, this machine will provide oxygen to your blood while the surgeon works on your heart. You may wake up with a tube in your throat to help your breathing. You may be connected to a breathing machine. The tube will be taken out as soon as it is safe. This information is not intended to replace advice given to you by your health care provider. Make sure you discuss any questions you have with your health care provider. Document Released: 08/18/2006 Document Revised: 07/18/2019 Document Reviewed: 07/18/2019 [employer] Patient Education 2020 [employer]. Additional Information VACCINATE! IT SAVES LIVES! Members of the community who have not yet received the COVID-19 vaccine and would like to receive it can visit one of [facility] vaccine clinics. There are many vaccine clinic locations within the [facility]. For locations and available times, please visit [email or web address] It is important to note that some COVID mobile vaccine clinics are held outdoors and may be canceled in rainy or stormy conditions. To learn more about pediatric vaccinations (ages 5-11), we invite you to visit the [facility] webpage. [email or web address] To learn more about the COVID-19 vaccine, we invite you to visit the [place] website for a list of frequently asked questions. [email or web address] [place] [facility] Patient Portal Access Instructions: Stay connected with your healthcare team and access your personal medical information anytime with the [place] [facility] Patient Portal.If you would like a full copy of your medical records, please contact the [facility] Medical Records Department, Wednesday through Wednesday between 8a.m. and 4:30p.m. Please follow the directions below to access the portal: 1.Access the email account you provided upon registration to the [facility].2.Look for an invitation email from [facility].3.Open the email and access the invitation link: Accept Invitation to [employer]4.Fill in the required olmstead to create your account. Sign into [email or web address] with your username and password that you created in the above steps to stay up to date. You can then view a summary of results, a summary of your visits, and the ability to download your summaries to your computer or send the information securely to a physician. Remember that your healthcare information is confidential, so carefully consider who you will allow to register on the [facility] Patient Portal for access to your information. You can also access the [facility] Patient Portal on the [employer] david. Simply click on Health Records under Health Data and then click on the [employer] logo. HOW TO SAFELY DISPOSE OF PRESCRIPTION MEDICATIONS Please use one of the following methods to safely dispose of your unused medications. 1.Use a drug disposal kit: the drug disposal pouch allows you to safely discard your old and unused drugs. Ask your nurse to give you one when you are discharged.2.Visit a local take-back location: Many local pharmacies and police departments have programs that collect old and unwanted prescription drugs. Call your local pharmacy or go to [email or web address] to find one close to you.3.Make use of household items: Use cat litter or old coffee grounds to dispose medications if other options are not available. Mix your drugs with these household products, seal them in an airtight container and throw it into the garbage. Call [facility]: [phone] to be sure your drugs can be disposed of in this way. Some medicines may require a different approach.4.Never flush your medications down the toilet. IF YOU HAVE BEEN PRESCRIBED AN OPIOID FOR PAIN If you have been prescribed an opioid (such as hydrocodone, oxycodone or morphine), it is critical to understand the possible side effects and risks of opioid pain medications. Even when taken as directed, opioids can have several side effects including: Tolerance, meaning you might need to take more of a medication for the same pain relief. Nausea, vomiting and/or constipation. Sleepiness, dizziness, dry mouth, confusion, depression or itching. Physical dependence, meaning you have withdrawal symptoms when a medication is stopped, can develop within a few days. KNOW YOUR RESPONSIBILITIES It is important to know exactly how much and how often to take the opioid pain medications you are prescribed. Never take opioids in higher amounts or more often than prescribed. Do not combine opioids with alcohol or other drugs that cause drowsiness, such as benzodiazepines, also known as benzos, including diazepam and alprazolam, muscle relaxants or sleep aids. Never sell or share prescription opioids. This is illegal. Store opioids in a secure place and out of reach of others (including children, family, friends and visitors). The last page of this document has been signed and retained as a CHART COPY. Signatures Patient Education Materials Form - Daily Weight Record Insulin Injection Instructions, Using Insulin Pens, Adult Blood Glucose Monitoring, Adult Coronary Artery Bypass Grafting Medication Leaflets My discharge plan and instructions have been reviewed and explained to me and I,DIMITRY CAMARILLO understand my current condition and have read and understand these discharge instructions. I have received a written copy of the plan/instructions. If I have questions, I am aware that I should contact my doctor. 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 Difficult to comprehend instructions. at bedside. Objective Vitals and Measurements T: 37.1 C (Oral) TMIN: 36.7 C (Oral) TMAX: 37.2 C (Oral) HR: 74(Monitored) RR: 18 BP: 114/71 SpO2: 98% WT: 87.5 kg Intake and Output 7AM Yesterday to 7AM Today Intake and Output (Last 24 hours) Intake Oral Intake 480.00 Output Urine Count 4.00 Total Summary Total Intake 480.00 Total Output 0.00 Fluid Balance 480.00 Physical Exam Alert awake oriented x3 Respirations easy Thyroid not palpable Abdomen is soft Trace edema noted in both feet Weight Current Weight Dosing Weight: 92 kg (10/23/22) Current Weight: 87.5 kg (10/28/22) Current Weight: 89.8 kg (10/27/22) Medications Medications (36) Active Scheduled: (18) amiodarone 200 mg tablet 400 mg 2 tab(s), Oral, BIDM aspirin 81 mg EC 81 mg 1 tab(s), Oral, qDayM atorvastatin 40 mg tablet 40 mg 1 tab(s), Oral, qDay bumetanide 1 mg tablet 2 mg 2 tab(s), Oral, BID calcium carbonate 500 mg Chewable 500 mg 1 tab(s), Oral, qAM clopidogrel 75 mg Tablet 75 mg 1 tab(s), Oral, qDay docusate calcium 240 mg Capsule 240 mg 1 cap(s), Oral, BID enoxaparin 40 mg/ 0.4mL syringe 40 mg 0.4 mL, Subcutaneous, qDay insulin glargine 15 unit(s) 0.15 mL, Subcutaneous (INT), qHS insulin lispro 100 units/mL Soln (3 mL) Give 0-10 units/dose, Subcutaneous, achs levothyroxine 50 mcg tablet 50 mcg 1 tab(s), Oral, qDayAC lisinopril 2.5 mg tablet 2.5 mg 1 tab(s), Oral, BID metformin 500 mg ER tablet 1,000 mg 2 tab(s), Oral, BID metoprolol tartrate 50 mg tablet 50 mg 1 tab(s), Oral, BIDM multivitamin (Chromagen Forte) with iron Vitamin B Complex with C, Folic Acid and Iron tablet 1 tab(s), Oral, qDay mupirocin 2% Ointment 22 Gram(s) tube 1 david, Nostril, each, BID pantoprazole 40 mg EC tablet 40 mg 1 tab(s), Oral, qDayAC potassium chloride 20 mEq ER tablet 20 mEq 1 tab(s), Oral, TIDM Continuous: (0) PRN: (18) acetaminophen 325 mg Tablet 650 mg 2 tab(s), Oral, q4h acetaminophen 325 mg Tablet 650 mg 2 tab(s), Oral, q4h Al hydrox/Mg hydrox/simethicone 200-200-20 mg/5 mL Susp UD 30 mL, Oral, q2h bisacodyl 10 mg Suppository 10 mg 1 supp, Rectal, qDay bismuth subsalicylate 262 mg/15 mL 240 mL 30 mL, Oral, AsDirected dextrose 50% Solution Disp syringe 50 mL 25 g 50 mL, IV Push, AsDirected dextrose 50% Solution Disp syringe 50 mL 12.5 g 25 mL, IV Push, AsDirected glucagon recombinant 1 mg 1 mg 1 mL, Intramuscular, AsDirected hydralazine 50 mg Tablet 50 mg 1 tab(s), Oral, q6h HYDROmorphone 0.5 mg/0.5 mL PF syringe 0.5 mg 0.5 mL, IV Push, q2h hydromorphone 1 mg/mL (1mL) INJ 1 mg 1 mL, IV Push, q2h magnesium hydroxide 8% Suspension 30 mL UD 30 mL, Oral, qDay ondansetron 2 mg/ 1 mL 2 mL INJ 4 mg 2 mL, IV Push, q4h ondansetron 2 mg/ 1 mL 2 mL INJ 4 mg 2 mL, IV Push, q6h phenol topical 1.4% Spr 1 spray(s), Topical, q1h polyethylene glycol 3350 - UD packet 17 gram(s) 15 mL, Oral, qDay potassium chloride (PMX) 20 mEq 50 mL, IV Piggyback, AsDirected potassium chloride (PMX) 15 mEq 50 mL, IV Piggyback, AsDirected Lab Results 10/28 04:35 WBC: 6.1 Hgb: 12.3 L Hct: 37.0 L Platelet: 348 Neutrophil %: 72.6 Glucose Level: 122 H Sodium Level: 138 Potassium Level: 3.6 BUN: 13.0 Creatinine Lvl (s): 0.85 10/27 03:26 WBC: 7.5 Hgb: 12.3 L Hct: 36.8 L Platelet: 303 Neutrophil %: 81.1 H Glucose Level: 113 Sodium Level: 138 Potassium Level: 4.0 BUN: 12.0 Creatinine Lvl (s): 0.79 EKG Electrocardiogram - Completed -- 10/27/22 6:00:00 EST, On the 4th post op day Assessment/Plan 1. CAD IN [place] ARTERY (CORONARY ARTERY DISEASE) (Renamed from CAD (CORONARY ARTERY DISEASE), M[place]ONGO CORONARY ARTERY) S/P CABG x1 GUTIERREZ to LAD off pump 10/23/2022 EF 61% 2. DIABETES MELLITUS (Renamed from DIABETES) HgbA1C 12 3. HYPERLIPIDEMIA (Renamed from HLD (HYPERLIPIDEMIA)) 4. HYPERTENSION, UNSPECIFIED (Renamed from ESSENTIAL (PRIMARY) HYPERTENSION) 5. HISTORY OF THROAT CANCER S/P chemo and radiation 6. Carotid stenosis, right S/P Right carotid angiogram, right carotid stent 10/26/2022 7. History of cerebral palsy 8. Hx of head and neck radiation This is a 67-year-old male with significant past medical history of type 2 diabetes, carotid stenosis, CAD, hypertension, hyperlipidemia, who has been following cardiothoracic surgery outpatient following abnormal heart cath in June that revealed critical in-stent stenosis. Presented through same-day surgery for CABG x1 off-pump with Dr. Acosta 10/23/2022. Requiring insulin drip protocol postop. Also with uncontrolled type II prompting endocrine consult. Type II diabetic, uncontrolled. Home use of metformin 1 g twice daily, Starlix 120mg 3 times daily, Jardiance 25 daily and glimepiride 8 mg every morning. Fill history appears appropriate. Vocalizes medication compliance. States he has not been monitoring blood sugars closely or following restricted diet. A1c goals and potential for future complications with uncontrolled diabetes reviewed. Goal A1c is closer to 7% considering his comorbidities and age. He does have some confusion regarding A1c and blood glucose which was clarified with him. Consult placed previously for dietitian as well as diabetic education. He will need insulin teaching. He is overweight. Needs improvements in lifestyle. This was reviewed with him. Lipid panel was screened this admission, total cholesterol 120, triglycerides 105, HDL 35 LDL 64. Stable. Last 24 Hours: Cordero is transition to Lantus 15 units nightly, metformin 1 g twice daily and a 0-10 correctional scale achs. Blood sugars are fairly stable. 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 lashaun Quiles in [place]. Plan of care was discussed with patient and also reviewed with his who is at bedside today Patient also need to continue on levothyroxine at discharge for newly diagnosed hypothyroidism. Initial TSH screened high 6.392. Repeat testing was completed, TSH7.402 with free T4 low at 0.87 and free T3 of 2.73. Antibodies were negative. . Discussed proper administration of levothyroxine in a fasting state with only water and waiting at least 30 minutes until intake. He verbalizes understanding of the same. Meds reconciled for discharge Discussed with nursing staff Orders: insulin degludec, Dose : 20 unit(s) =, Subcutaneous, qDay, # 15 mL, 2 Refill(s), Pharmacy: [id number], 184, cm, 10/23/22 10:10:00 EST, Height Time Spent 35 Digitally Signed by ISABEL THOMPSON MD on 10/28/2022 02:01 PM [facility] 10-28-2022 Discharge summary Date of Service 10/28/2022 Discharge Diagnosis 1. CAD IN M[place]ON[place] ARTERY (CORONARY ARTERY DISEASE) (Renamed from CAD (CORONARY ARTERY DISEASE), MORONGO CORONARY ARTERY) S/P CABG x1 GUTIERREZ to LAD off pump 10/23/2022 EF 61% (I25.10 - ICD-10-CM) 2. DIABETES MELLITUS (Renamed from DIABETES) HgbA1C 12 (E11.9 - ICD-10-CM) 3. HYPERLIPIDEMIA (Renamed from HLD (HYPERLIPIDEMIA)) (E78.5 - ICD-10-CM) 4. HYPERTENSION, UNSPECIFIED (Renamed from ESSENTIAL (PRIMARY) HYPERTENSION) (I10 - ICD-10-CM) 5. HISTORY OF THROAT CANCER S/P chemo and radiation (Z85.29 - ICD-10-CM) 6. Carotid stenosis, right S/P Right carotid angiogram, right carotid stent 10/26/2022 (I65.21 - ICD-10-CM) 7. History of cerebral palsy (Z86.69 - ICD-10-CM) 8. Hx of head and neck radiation (Z92.3 - ICD-10-CM) Atherosclerotic heart disease of creek coronary artery without angina pectoris (I25.10 - ICD-10-CM) Occlusion and stenosis of right carotid artery (I65.21 - ICD-10-CM) Personal history of malignant neoplasm of other sites of lip, oral cavity, and pharynx (Z85.818 - ICD-10-CM) Type 2 diabetes mellitus without complications (E11.9 - ICD-10-CM) Hyperlipidemia, unspecified (E78.5 - ICD-10-CM) Essential (primary) hypertension (I10 - ICD-10-CM) Cerebral palsy, unspecified (G80.9 - ICD-10-CM) Additional Orders: Ordered: Discharge,10/28/22 11:05:00 EST, Discharged to: Home Ordered: Discharge Activity,Lifting Restricted less than 10 pounds May Shower, 10/28/22 11:05:00 EST Ordered: Discharge Diet,Type of Diet: Regular, low cholesterol ADA diet, 10/28/22 11:05:00 EST Ordered: Discharge Driving Restrictions,* Other, specify in special instructions, No driving for 6 weeks, 10/28/22 11:05:00 EST Ordered: Discharge Outpatient Labwork,bmp, cbc, cabg and diurtic therapy, Results Notify to: NASIM ACOSTA MD, Please have home health care draw on 11/03, 10/28/22 11:05:00 EST Ordered: Discharge Outpatient Radiology,PA/Lat CXR, pleural effusion, Results Notify to: NASIM ACOSTA MD, Please have chest x ray done on 11/04 at the [facility] [place] radiology department one hour prior to appointment, 10/28/22 11:05:00 EST Ordered: Discharge Wound Care,Dressing Type: Open to Air, Sternum, Shower daily. Wash incisions with soap and water. Keep clean and dry, 10/28/22 11:05:00 EST Ordered: Metoprolol Tartrate 50 mg oral tablet,Dose : 50 mg = 1 tab(s), Oral, BID, # 60 tab(s), 1 Refill(s), Pharmacy: [id number], 184, cm, 10/23/22 10:10:00 EST, Height Ordered: Multiple Vitamins with Folic Acid and Iron oral tablet,Dose = 1 tab(s), Oral, qDay, # 30 tab(s), 0 Refill(s), Pharmacy: [facility], 184, cm, 10/23/22 10:10:00 EST, Height Ordered: Plavix 75 mg oral tablet,Dose : 75 mg = 1 tab(s), Oral, qDay, # 30 tab(s), 1 Refill(s), Pharmacy: [place] [id number], 184, , 10/23/22 10:10:00 EST, Height Ordered: Tylenol 325 mg oral capsule,Dose : 650 mg =, Oral, q4h, PRN Pain, scale 1-6, 0 Refill(s) Ordered: amiodarone 200 mg oral tablet,Dose : 400 mg = 2 tab(s), Oral, BIDM, # 28 tab(s), 0 Refill(s), Pharmacy: [place] [id number], 184, , 10/23/22 10:10:00 EST, Height Ordered: amiodarone 200 mg oral tablet,Dose : 200 mg = 1 tab(s), Oral, BIDM, # 84 tab(s), 0 Refill(s), Pharmacy: [place] [id number], [facility], , 10/23/22 10:10:00 EST, Height Ordered: atorvastatin 40 mg oral tablet,Dose : 40 mg = 1 tab(s), Oral, qDay, # 30 tab(s), 1 Refill(s), Pharmacy: [place] [id number], 184, , 10/23/22 10:10:00 EST, Height Ordered: bumetanide 2 mg oral tablet,Dose : 2 mg = 1 tab(s), Oral, qDay, # 7 tab(s), 0 Refill(s), Pharmacy: [place] [id number], 184, , 10/23/22 10:10:00 EST, Height Ordered: levothyroxine 50 mcg (0.05 mg) oral tablet,Dose : 50 mcg = 1 tab(s), Oral, qDayAC, # 30 tab(s), 1 Refill(s), Pharmacy: [place] [id number], 184, , 10/23/22 10:10:00 EST, Height Ordered: lisinopril 2.5 mg oral tablet,Dose : 2.5 mg = 1 tab(s), Oral, BID, # 60 tab(s), 1 Refill(s), Pharmacy: [place] [id number], 184, , 10/23/22 10:10:00 EST, Height Ordered: potassium chloride 20 mEq oral tablet, extended release,Dose : 20 mEq = 1 tab(s), Oral, BID, # 14 tab(s), 0 Refill(s), Pharmacy: [facility], 184, cm, 10/23/22 10:10:00 EST, Height Hospital Course This is a 67-year-old male with a history of CAD status post PCI and stent, hypertension, hyperlipidemia, diabetes and throat cancer status post chemotherapy and radiation 12 years ago. Positive stress test. Heart catheterization showed multivessel disease with chronic total occlusion RCA. He was found to have critical right carotid stenosis. Was seen by Dr. Viera. On 10/23/2022 he underwent a coronary bypass graft x1 using GUTIERREZ to the LAD off-pump per Dr. Acosta. He tolerated procedure well was transferred to CV SICU in stable condition. Extubated on operative day. On nitroprusside for blood pressure control. POD #1 initiated on metoprolol and lisinopril and as needed hydralazine. Transferred to the stepdown. POD #2 chest tubes discontinued. Initiated on Lasix. POD #3 underwent a right carotid angiogram with right carotid stent per Dr. Viera. He tolerated the procedure well. Plan transfer to stepdown once recovered in CV SICU. POD #4/POD #1: Complains of continued right sided headache since his carotid angiogram and right carotid stenting yesterday. Denies any blurred vision. Heart rate ranging 78-91. Started amiodarone 400 mg twice daily, Lasix discontinued, Bumex started at 2 mg daily and increase potassium to 3 times daily. POD #4/POD #2: The V pacing wire cut and dropped. Patient is on Plavix. Headache resolved. Vascular recommends to follow-up with Dr. Viera in 2 to 6 weeks and to maintain Plavix therapy. [place] inpatient endocrinology following. Newly diagnosed hypothyroidism. Currently on levothyroxine. Discussed decreasing amiodarone dose in 1 week, decreased blood pressure medication doses from his home dose. Discontinuing simvastatin secondary to use of amiodarone. Diuretic therapy for 1 week until evaluated by cardiothoracic surgery and postop visit. Labs and chest x-ray prior to visit. BP 101/73-123/83. O2 saturation on room air 98%. Labs: WBC 6.1, hematocrit 37, platelet count 348, potassium 3.6, BUN 13, creatinine 0.85 Allergies NKA Consults Consult to [facility] Endocrinology - Ordered -- 10/23/22 10:40:00 EST, HgbA1C 12, ISABEL THOMPSON MD. Consult to Cardiac Rehabilitation - Ordered -- 10/24/22 13:24:00 EST, CABG Consult to Diabetes Education - Ordered -- 10/24/22 8:28:00 EST, Complications Teaching Insulin Teaching, Once Consult to Diabetes Education - Ordered -- 10/26/22 12:59:00 EST, Complications Teaching Insulin Teaching, Once Imaging Results and Diagnostics (10/28/2022 05:27 EST XR Chest 2 Views) EXAMINATION: TWO XRAY VIEWS OF THE CHEST10/28/2022 5:28 am COMPARISON: 10/27/2022 HISTORY: ORDERING SYSTEM PROVIDED HISTORY: Reason for Exam: Decreased breath sounds FINDINGS: Unchanged cardiomediastinal silhouette. No visible pneumothorax. No significant pleural effusion. Hazy and streaky left basilar opacity again noted. Grossly unchanged osseous structures. Unchanged left subclavian approach central venous catheter and median sternotomy wires. IMPRESSION: Minimal left basilar atelectasis. [1] Physical Exam Vitals and Measurements T: 37.1 C (Oral) TMIN: 36.7 C (Oral) TMAX: 37.2 C (Oral) HR: 66(Monitored) RR: 18 BP: 114/71 SpO2: 98% WT: 87.5 kg Weight Current Weight Dosing Weight: 92 kg (10/23/22) Current Weight: 87.5 kg (10/28/22) Current Weight: 89.8 kg (10/27/22) General: Awake, alert and oriented x4. No apparent distress. On room air. Heart: Regular rate and rhythm, normal S1, S2. Sinus rhythm. Rate in the 70s Lungs: Nonlabored, easy and even. Lung sounds are clear bilaterally. Abdomen: Soft and rounded, nontender. Bowel sounds present. Extremities: Warm and well-perfused, no edema. Incisions: Midsternal incision open to air and well approximated. Steri-Strips intact. No redness or drainage. Code Status Code Status - Ordered -- 10/23/22 10:19:00 EST, Full Code, Constant Order Admission Date 10/23/2022 Discharge Date 10/28/2022 Patient Instructions Shower daily Ambulate at least 4 times a day as tolerates elevate legs above chest for 15 minutes twice a day for swelling Continue incentive spirometer Weigh daily in the morning after voiding, notify physician if weight gain greater than 3-5 lbs in 1-2 days Remove steri strips from chest as they loosen, remove remaining steri strips October 30 with shower Medications New Prescription acetaminophen (Tylenol 325 mg oral capsule)650 Milligram by mouth every 4 hours as needed Pain, scale 1-6. amiodarone (amiodarone 200 mg oral tablet)1 tab(s) by mouth twice daily with meals for 6 week(s). Refills: 0. amiodarone (amiodarone 200 mg oral tablet)2 tab(s) by mouth twice daily with meals for 7 Days. Refills: 0. atorvastatin (atorvastatin 40 mg oral tablet)1 tab(s) by mouth once a day. Refills: 1. bumetanide (bumetanide 2 mg oral tablet)1 tab(s) by mouth once a day for 7 Days. Refills: 0. clopidogrel (Plavix 75 mg oral tablet)1 tab(s) by mouth once a day. Refills: 1. DME (DME MISCellaneous)Insulin pen needles 5 mm-100 with 3 refills e11.65.. Refills: 0. insulin degludec (Tresiba FlexTouch 100 units/mL 3 mL subcutaneous solution)20 unit(s) Subcutaneous once a day. Refills: 2. levothyroxine (levothyroxine 50 mcg (0.05 mg) oral tablet)1 tab(s) by mouth once a day before a meal. Refills: 1. multivitamin with iron (Multiple Vitamins with Folic Acid and Iron oral tablet)1 tab(s) by mouth once a day. Refills: 0. potassium chloride (potassium chloride 20 mEq oral tablet, extended release)1 tab(s) by mouth two (2) times a day for 7 Days. Refills: 0. Changed lisinopril (lisinopril 2.5 mg oral tablet)1 tab(s) by mouth two (2) times a day. Refills: 1. metoprolol (Metoprolol Tartrate 50 mg oral tablet)1 tab(s) by mouth two (2) times a day. Refills: 1. Unchanged aspirin (Aspir-Low 81 mg oral delayed release tablet)1 tab(s) by mouth once a day (in the morning). calcium carbonate (calcium (as carbonate) 600 mg oral tablet)1 tab(s) by mouth once a day (in the morning). empagliflozin (Jardiance 25 mg oral tablet)1 tab(s) by mouth once a day (in the morning). magnesium glycinate (magnesium glycinate 200 mg oral tablet)2 tab(s) by mouth once a day (in the morning). metFORMIN (metFORMIN 1000 mg oral tablet)1 tab(s) by mouth twice daily with meals. nitroGLYcerin (nitroglycerin 0.4 mg sublingual spray)1 spray(s) under the tongue every 5 minutes as needed as needed for chest pain. Discontinued glimepiride (Amaryl 4 mg oral tablet)2 tab(s) by mouth once a day (in the morning). herbal/nutritional product (Cinnamon 1000 mg capsule)2 cap by mouth once a day (in the morning). isosorbide mononitrate (isosorbide mononitrate 60 mg oral tablet, extended release)1 tab(s) by mouth once a day (in the morning). TAKE 1 TABLET BY MOUTH ONCE DAILY. Misc Medication1 tab(s) by mouth once a day (in the morning). CO Q 10 400mg. nateglinide (nateglinide 120 mg oral tablet)1 tab(s) by mouth three (3) times a day before meals. omega-3 polyunsaturated fatty acids (Ultra Darek Krill Oil 500 mg oral capsule)1 cap by mouth two (2) times a day. simvastatin (simvastatin 80 mg oral tablet (NF))1 tab(s) by mouth daily at bedtime. Follow Up Follow Up with CHAYO HUFF PA-C When 11/24/2022 11:00 AM EST Where: [address] [facility] [place] [address]- [phone] Follow Up with JOSE A WARNER, Infectious Disease, Infectious Disease Group When 11/06/2022 04:00 PM EST Why: KEEP THIS PREVIOUSLY SCHEDULED APPOINTMENT Where: [address] [facility] [address]- [phone] Business (1) Follow Up with MUKESH ANDERSEN When 11/04/2022 02:00 PM EST Why: Please arrive one hour prior to appointment to have a chest x ray done in the radiology department, [facility] Where: [address] [place] [address] [facility] [place] [address]- Business (1) Follow Up with [facility] has been set up for you. please call [phone] or After Hours [phone] for questions regarding your equipment. When Within 1-2 days Where: Follow Up with [facility] to follow, Will call to schedule first visit When Within 1-2 days Why: Home care Nurse Where: [place], [place] [phone] Follow Up with Rosa Maria TERAN Nurse Meeting Manager, will call you and/or your family after your release from the hospital. Office Hours: Wednesday thru Wednesday 7:30am - 4pm When Within 1-2 days Where: Follow Up with Cardiac Rehab- [facility] When Why: The Cardiac Rehab department will call you to schedule you for phase 2. We left you a brochure with information about cardiac rehab. If you have any questions please call [phone]. Where: [facility] [address] [place] [address]- Follow Up with WILLIAM VIERA MD, [facility], Surgery, Vascular Surgeons When Why: Follow-up as scheduled Where: [address] [facility] [address] [facility] [place] [address] [id number] Follow Up Labs/Studies Discharge Labs Discharge Outpatient Labwork - Ordered -- bmp, cbc, cabg and diurtic therapy, Results Notify to: NASIM ACOSTA MD, Please have home health care draw on 11/03, 10/28/22 11:05:00 EST Discharge Studies Discharge Outpatient Radiology - Ordered -- PA/Lat CXR, pleural effusion, Results Notify to: NASIM ACOSTA MD, Please have chest x ray done on 11/04 at the [facility] [place] radiology department one hour prior to appointment, 10/28/22 11:05:00 EST Discharge Diet Discharge Diet - Ordered -- Type of Diet: Regular, low cholesterol ADA diet, 10/28/22 11:05:00 EST Discharge Activity Discharge Activity - Ordered -- Lifting Restricted less than 10 pounds May Shower, 10/28/22 11:05:00 EST Condition on Discharge stable Discharge Disposition home Information Provided To patient and [1] XR Chest 2 Views; NA SHEPPARD MD 10/28/2022 05:27 EST Digitally Signed by ARLET COOMBS on 10/28/2022 05:41 PM [facility] 10-28-2022 Note ORIGINAL EXAMINATION: TWO XRAY VIEWS OF THE CHEST10/28/2022 5:28 am COMPARISON: 10/27/2022 HISTORY: ORDERING SYSTEM PROVIDED HISTORY: Reason for Exam: Decreased breath sounds FINDINGS: Unchanged cardiomediastinal silhouette. No visible pneumothorax. No significant pleural effusion. Hazy and streaky left basilar opacity again noted. Grossly unchanged osseous structures. Unchanged left subclavian approach central venous catheter and median sternotomy wires. IMPRESSION: Minimal left basilar atelectasis. Preliminary Report was Dictated by a Resident Interpreted by: Na Sheppard MD Preliminary Report By: Santiago Alonso Electronically signed By Na Sheppard MD Dictated Date: 10/28/2022 5:38:51 AM Prelim Date: 10/28/2022 5:42:00 AM Sign Date: 10/28/2022 7:34:17 AM Ordering Provider: AMOS ALVARADO [facility] 10-28-2022 Vascular surgery Progress note Date of Service 10/28/22 Subjective She was stable evening. Headache resolved no complaints ready for discharge Objective Vitals and Measurements T: 37.0 C (Oral) TMIN: 36.7 C (Oral) TMAX: 37.3 C (Oral) HR: 81(Monitored) RR: 16 BP: 123/83 SpO2: 97% WT: 87.5 kg Intake and Output 7AM Yesterday to 7AM Today Intake and Output (Last 24 hours) Intake Output Stool Count 1.00 Urine Count 3.00 Total Summary Total Intake 0.00 Total Output 0.00 Fluid Balance 0.00 Physical Exam Elderly male resting comfortably hospital bed no acute distress No focal deficits neurologically. strength equal in the upper extremities Weight Current Weight Dosing Weight: 92 kg (10/23/22) Current Weight: 87.5 kg (10/28/22) Current Weight: 89.8 kg (10/27/22) Medications Medications (36) Active Scheduled: (18) amiodarone 200 mg tablet 400 mg 2 tab(s), Oral, BIDM aspirin 81 mg EC 81 mg 1 tab(s), Oral, qDayM atorvastatin 40 mg tablet 40 mg 1 tab(s), Oral, qDay bumetanide 1 mg tablet 2 mg 2 tab(s), Oral, BID calcium carbonate 500 mg Chewable 500 mg 1 tab(s), Oral, qAM clopidogrel 75 mg Tablet 75 mg 1 tab(s), Oral, qDay docusate calcium 240 mg Capsule 240 mg 1 cap(s), Oral, BID enoxaparin 40 mg/ 0.4mL syringe 40 mg 0.4 mL, Subcutaneous, qDay insulin glargine 15 unit(s) 0.15 mL, Subcutaneous (INT), qHS insulin lispro 100 units/mL Soln (3 mL) Give 0-10 units/dose, Subcutaneous, achs levothyroxine 50 mcg tablet 50 mcg 1 tab(s), Oral, qDayAC lisinopril 2.5 mg tablet 2.5 mg 1 tab(s), Oral, BID metformin 500 mg ER tablet 1,000 mg 2 tab(s), Oral, BID metoprolol tartrate 50 mg tablet 50 mg 1 tab(s), Oral, BIDM multivitamin (Chromagen Forte) with iron Vitamin B Complex with C, Folic Acid and Iron tablet 1 tab(s), Oral, qDay mupirocin 2% Ointment 22 Gram(s) tube 1 david, Nostril, each, BID pantoprazole 40 mg EC tablet 40 mg 1 tab(s), Oral, qDayAC potassium chloride 20 mEq ER tablet 20 mEq 1 tab(s), Oral, TIDM Continuous: (0) PRN: (18) acetaminophen 325 mg Tablet 650 mg 2 tab(s), Oral, q4h acetaminophen 325 mg Tablet 650 mg 2 tab(s), Oral, q4h Al hydrox/Mg hydrox/simethicone 200-200-20 mg/5 mL Susp UD 30 mL, Oral, q2h bisacodyl 10 mg Suppository 10 mg 1 supp, Rectal, qDay bismuth subsalicylate 262 mg/15 mL 240 mL 30 mL, Oral, AsDirected dextrose 50% Solution Disp syringe 50 mL 25 g 50 mL, IV Push, AsDirected dextrose 50% Solution Disp syringe 50 mL 12.5 g 25 mL, IV Push, AsDirected glucagon recombinant 1 mg 1 mg 1 mL, Intramuscular, AsDirected hydralazine 50 mg Tablet 50 mg 1 tab(s), Oral, q6h HYDROmorphone 0.5 mg/0.5 mL PF syringe 0.5 mg 0.5 mL, IV Push, q2h hydromorphone 1 mg/mL (1mL) INJ 1 mg 1 mL, IV Push, q2h magnesium hydroxide 8% Suspension 30 mL UD 30 mL, Oral, qDay ondansetron 2 mg/ 1 mL 2 mL INJ 4 mg 2 mL, IV Push, q4h ondansetron 2 mg/ 1 mL 2 mL INJ 4 mg 2 mL, IV Push, q6h phenol topical 1.4% Spr 1 spray(s), Topical, q1h polyethylene glycol 3350 - UD packet 17 gram(s) 15 mL, Oral, qDay potassium chloride (PMX) 20 mEq 50 mL, IV Piggyback, AsDirected potassium chloride (PMX) 15 mEq 50 mL, IV Piggyback, AsDirected Lab Results 10/28 04:35 WBC: 6.1 Hgb: 12.3 L Hct: 37.0 L Platelet: 348 Neutrophil %: 72.6 Glucose Level: 122 H Sodium Level: 138 Potassium Level: 3.6 BUN: 13.0 Creatinine Lvl (s): 0.85 10/27 03:26 WBC: 7.5 Hgb: 12.3 L Hct: 36.8 L Platelet: 303 Neutrophil %: 81.1 H Glucose Level: 113 Sodium Level: 138 Potassium Level: 4.0 BUN: 12.0 Creatinine Lvl (s): 0.79 Imaging Results and Diagnostics CT brain reviewed EKG Electrocardiogram - InProcess -- 10/27/22 6:00:00 EST, On the 4th post op day Assessment/Plan 1. CAD IN MORONGO ARTERY (CORONARY ARTERY DISEASE) (Renamed from CAD (CORONARY ARTERY DISEASE), MORONGO CORONARY ARTERY) S/P CABG x1 GUTIERREZ to LAD off pump 10/23/2022 EF 61% 2. DIABETES MELLITUS (Renamed from DIABETES) HgbA1C 12 3. HYPERLIPIDEMIA (Renamed from HLD (HYPERLIPIDEMIA)) 4. HYPERTENSION, UNSPECIFIED (Renamed from ESSENTIAL (PRIMARY) HYPERTENSION) 5. HISTORY OF THROAT CANCER S/P chemo and radiation 6. Carotid stenosis, right S/P Right carotid angiogram, right carotid stent 10/26/2022 Patient doing well headache resolved maintain Plavix therapy follow-up with Dr. Viera in 2 to 6 weeks what ever is convenient for the patient is an recommendations made okay for discharge from my standpoint 7. History of cerebral palsy 8. Hx of head and neck radiation Digitally Signed by WILLIAM VIERA MD on 10/28/2022 06:53 AM [facility] 10-28-2022 Note ORIGINAL EXAMINATION: TWO XRAY VIEWS OF THE CHEST10/28/2022 5:28 am COMPARISON: 10/27/2022 HISTORY: ORDERING SYSTEM PROVIDED HISTORY: Reason for Exam: Decreased breath sounds FINDINGS: Unchanged cardiomediastinal silhouette. No visible pneumothorax. No significant pleural effusion. Hazy and streaky left basilar opacity again noted. Grossly unchanged osseous structures. Unchanged left subclavian approach central venous catheter and median sternotomy wires. IMPRESSION: Minimal left basilar atelectasis. Preliminary Report was Dictated by a Resident Interpreted by: Na Sheppard MD Preliminary Report By: Santiago Alonso Electronically signed By Na Sheppard MD Dictated Date: 10/28/2022 5:38:51 AM Prelim Date: 10/28/2022 5:42:00 AM Sign Date: 10/28/2022 7:34:17 AM Ordering Provider: AMOS ALVARADO [facility] 10-27-2022 Note ADDENDUM ADDENDUM: CTA head neck were canceled by Dr. Viera. Should this patient present with a new focal neurological deficit than further evaluation with either CTA head neck or MRI brain is advised. Interpreted by: Christiano Duran MD Preliminary Report By: Christiano Duran MD Electronically signed By Christiano Duran MD Dictated Date: 10/27/2022 2:15:46 PM Prelim Date: 10/27/2022 2:17:08 PM Sign Date: 10/27/2022 2:17:08 PM Ordering Provider: WILLIAM VIERA ORIGINAL EXAMINATION: CT HEAD TECHNIQUE: Axial CT images from skull base to vertex without IV contrast. This exam was performed according to our departmental dose optimization program, and includes the following measures where applicable: automated exposure control, adjustment of the mAs and/or kVp according to patient size and/or exam, and an iterative reconstruction algorithm. COMPARISON: None HISTORY: ORDERING SYSTEM PROVIDED HISTORY: Reason for Exam: OPEN HEART SURG 4 DAYS AGO STENT RT CAROTID YESTERDAY SEVERE H/A THIS AM INCREASING PT ON BLOOD THINNER NOW headache FINDINGS: Parenchyma: No acute intracranial hemorrhage, midline shift, or mass effect is demonstrated. The right sylvian fissure is small compared to the left side. The differentiation between the insular cortex and extreme capsule is preserved. The ceballos-white matter junctions are preserved. No space occupying intra-axial masses or extra-axial fluid collections are seen. Mild parenchymal volume loss is noted. Scattered areas of decreased attenuation are identified in the subcortical, periventricular, and deep white matter reflecting mild chronic microvascular white matter ischemic disease. Ventricles: No evidence of hydrocephalus or ventricular effacement. Vessels: Atherosclerotic calcifications of the bilateral internal carotid arteries. Orbits: Unremarkable. Calvarium: Unremarkable. Paranasal sinuses: Clear. Mastoid sinuses: Clear. IMPRESSION: Slightly small right sylvian fissure relative to the contralateral left side which may reflect early ischemic changes in a right MCA distribution. No definite acute ischemic infarct or hemorrhage is seen. CTA head and neck are pending. Communication was initiated for the radiology call center by this radiologist through PACS at 2 p.m. on 10/27/2022with instructions to provide the results of this examination to a licensed caregiver. Interpreted by: Chrisitano Duran MD Preliminary Report By: Christiano Duran MD Electronically signed By Christiano Duran MD Dictated Date: 10/27/2022 1:55:11 PM Prelim Date: 10/27/2022 1:59:25 PM Sign Date: 10/27/2022 1:59:25 PM Ordering Provider: WILLIAM VIERA [facility] 10-27-2022 Note ADDENDUM ADDENDUM: CTA head neck were canceled by Dr. Viera. Should this patient present with a new focal neurological deficit than further evaluation with either CTA head neck or MRI brain is advised. Interpreted by: Christiano Duran MD Preliminary Report By: Christiano Duran MD Electronically signed By Christiano Duran MD Dictated Date: 10/27/2022 2:15:46 PM Prelim Date: 10/27/2022 2:17:08 PM Sign Date: 10/27/2022 2:17:08 PM Ordering Provider: WILLIAM VIERA ORIGINAL EXAMINATION: CT HEAD TECHNIQUE: Axial CT images from skull base to vertex without IV contrast. This exam was performed according to our departmental dose optimization program, and includes the following measures where applicable: automated exposure control, adjustment of the mAs and/or kVp according to patient size and/or exam, and an iterative reconstruction algorithm. COMPARISON: None HISTORY: ORDERING SYSTEM PROVIDED HISTORY: Reason for Exam: OPEN HEART SURG 4 DAYS AGO STENT RT CAROTID YESTERDAY SEVERE H/A THIS AM INCREASING PT ON BLOOD THINNER NOW headache FINDINGS: Parenchyma: No acute intracranial hemorrhage, midline shift, or mass effect is demonstrated. The right sylvian fissure is small compared to the left side. The differentiation between the insular cortex and extreme capsule is preserved. The ceballos-white matter junctions are preserved. No space occupying intra-axial masses or extra-axial fluid collections are seen. Mild parenchymal volume loss is noted. Scattered areas of decreased attenuation are identified in the subcortical, periventricular, and deep white matter reflecting mild chronic microvascular white matter ischemic disease. Ventricles: No evidence of hydrocephalus or ventricular effacement. Vessels: Atherosclerotic calcifications of the bilateral internal carotid arteries. Orbits: Unremarkable. Calvarium: Unremarkable. Paranasal sinuses: Clear. Mastoid sinuses: Clear. IMPRESSION: Slightly small right sylvian fissure relative to the contralateral left side which may reflect early ischemic changes in a right MCA distribution. No definite acute ischemic infarct or hemorrhage is seen. CTA head and neck are pending. Communication was initiated for the radiology call center by this radiologist through PACS at 2 p.m. on 10/27/2022with instructions to provide the results of this examination to a licensed caregiver. Interpreted by: Christiano Duran MD Preliminary Report By: Christiano Duran MD Electronically signed By Christiano Duran MD Dictated Date: 10/27/2022 1:55:11 PM Prelim Date: 10/27/2022 1:59:25 PM Sign Date: 10/27/2022 1:59:25 PM Ordering Provider: WILLIAM VIERA [facility] 10-27-2022 Endocrinology Progress note Date of Service 10/27/22 Chief Complaint DM2 Subjective Chart reviewed. Overnight events and plan of care d/w patient. Patient denies new complaints. Appetite is good. Still hesitant re: insulin administration at d/c. Complaints of headache; discussed w/ RN. She has called for orders for the same from primary team. Objective Vitals and Measurements T: 36.9 C (Oral) TMIN: 36.9 C (Oral) TMAX: 38.1 C (Oral) HR: 70(Monitored) RR: 18 BP: 103/77 SpO2: 97% WT: 89.8 kg Intake and Output 7AM Yesterday to 7AM Today Intake and Output (Last 24 hours) Intake Oral Intake 720.00 Output Urine Voided 1700.00 Stool Count 1.00 Total Summary Total Intake 720.00 Total Output 1700.00 Fluid Balance -980.00 Physical Exam Alert, lying in bed, no acute distress Respirations even and unlabored Answers questions appropriately. Mood and affect normal. Weight Current Weight Dosing Weight: 92 kg (10/23/22) Current Weight: 89.8 kg (10/27/22) Current Weight: 91.9 kg (10/26/22) Medications Medications (39) Active Scheduled: (18) amiodarone 200 mg tablet 400 mg 2 tab(s), Oral, BIDM aspirin 81 mg EC 81 mg 1 tab(s), Oral, qDayM atorvastatin 40 mg tablet 40 mg 1 tab(s), Oral, qDay bumetanide 1 mg tablet 2 mg 2 tab(s), Oral, BID calcium carbonate 500 mg Chewable 500 mg 1 tab(s), Oral, qAM clopidogrel 75 mg Tablet 75 mg 1 tab(s), Oral, qDay docusate calcium 240 mg Capsule 240 mg 1 cap(s), Oral, BID enoxaparin 40 mg/ 0.4mL syringe 40 mg 0.4 mL, Subcutaneous, qDay insulin glargine 15 unit(s) 0.15 mL, Subcutaneous (INT), qHS insulin lispro 100 units/mL Soln (3 mL) Give 0-10 units/dose, Subcutaneous, achs levothyroxine 50 mcg tablet 50 mcg 1 tab(s), Oral, qDayAC lisinopril 2.5 mg tablet 2.5 mg 1 tab(s), Oral, BID metformin 500 mg ER tablet 1,000 mg 2 tab(s), Oral, BID metoprolol tartrate 50 mg tablet 50 mg 1 tab(s), Oral, BIDM multivitamin (Chromagen Forte) with iron Vitamin B Complex with C, Folic Acid and Iron tablet 1 tab(s), Oral, qDay mupirocin 2% Ointment 22 Gram(s) tube 1 david, Nostril, each, BID pantoprazole 40 mg EC tablet 40 mg 1 tab(s), Oral, qDayAC potassium chloride 20 mEq ER tablet 20 mEq 1 tab(s), Oral, TIDM Continuous: (2) D5/0.45%NACL + KCl 20 mEq/L 1,000 mL 1,000 mL, Intravenous, 70 mL/hr insulin regular 100 unit(s) + NS Premix Diluent 100 mL 100 mL, Intravenous PRN: (19) acetaminophen 325 mg Tablet 650 mg 2 tab(s), Oral, q4h acetaminophen 325 mg Tablet 650 mg 2 tab(s), Oral, q4h acetaminophen-HYDROcodone 325-5 mg tablet 1 tab(s), Oral, q4h Al hydrox/Mg hydrox/simethicone 200-200-20 mg/5 mL Susp UD 30 mL, Oral, q2h bisacodyl 10 mg Suppository 10 mg 1 supp, Rectal, qDay bismuth subsalicylate 262 mg/15 mL 240 mL 30 mL, Oral, AsDirected dextrose 50% Solution Disp syringe 50 mL 25 g 50 mL, IV Push, AsDirected dextrose 50% Solution Disp syringe 50 mL 12.5 g 25 mL, IV Push, AsDirected glucagon recombinant 1 mg 1 mg 1 mL, Intramuscular, AsDirected hydralazine 50 mg Tablet 50 mg 1 tab(s), Oral, q6h HYDROmorphone 0.5 mg/0.5 mL PF syringe 0.5 mg 0.5 mL, IV Push, q2h hydromorphone 1 mg/mL (1mL) INJ 1 mg 1 mL, IV Push, q2h magnesium hydroxide 8% Suspension 30 mL UD 30 mL, Oral, qDay ondansetron 2 mg/ 1 mL 2 mL INJ 4 mg 2 mL, IV Push, q4h ondansetron 2 mg/ 1 mL 2 mL INJ 4 mg 2 mL, IV Push, q6h phenol topical 1.4% Spr 1 spray(s), Topical, q1h polyethylene glycol 3350 - UD packet 17 gram(s) 15 mL, Oral, qDay potassium chloride (PMX) 20 mEq 50 mL, IV Piggyback, AsDirected potassium chloride (PMX) 15 mEq 50 mL, IV Piggyback, AsDirected Lab Results 10/27 03:26 WBC: 7.5 Hgb: 12.3 L Hct: 36.8 L Platelet: 303 Neutrophil %: 81.1 H Glucose Level: 113 Sodium Level: 138 Potassium Level: 4.0 BUN: 12.0 Creatinine Lvl (s): 0.79 10/26 16:01 Potassium Level: 3.8 10/26 04:34 WBC: 6.6 Hgb: 12.2 L Hct: 37.0 L Platelet: 269 Neutrophil %: 74.9 Glucose Level: 75 L Sodium Level: 136 Potassium Level: 3.8 BUN: 15.0 Creatinine Lvl (s): 0.77 Group Detail Date Value w/Units Flags Normal Range Normal Reference Text Comment Ind Glucose Testing Blood Glucose, Capillary 10/27/2022 10:50:00 EST 157 mg/dL HI 82-115 Glucose Testing Blood Glucose, Capillary 10/27/2022 07:13:00 EST 100 mg/dL 82-115 Glucose Testing Glucose Level 10/27/2022 03:26:00 EST 113 mg/dL 82-115 Glucose Testing Blood Glucose, Capillary 10/26/2022 21:08:00 EST 148 mg/dL HI 82-115 Glucose Testing Blood Glucose, Capillary 10/26/2022 16:40:00 EST 129 mg/dL HI 82-115 EKG Electrocardiogram - InProcess -- 10/27/22 6:00:00 EST, On the 4th post op day Assessment/Plan 1. CAD IN MORONGO ARTERY (CORONARY ARTERY DISEASE) (Renamed from CAD (CORONARY ARTERY DISEASE), MORONGO CORONARY ARTERY) S/P CABG x1 GUTIERREZ to LAD off pump 10/23/2022 EF 61% 2. DIABETES MELLITUS (Renamed from DIABETES) HgbA1C 12 3. HYPERLIPIDEMIA (Renamed from HLD (HYPERLIPIDEMIA)) 4. HYPERTENSION, UNSPECIFIED (Renamed from ESSENTIAL (PRIMARY) HYPERTENSION) 5. HISTORY OF THROAT CANCER S/P chemo and radiation 6. Carotid stenosis, right S/P Right carotid angiogram, right carotid stent 10/26/2022 7. History of cerebral palsy 8. Hx of head and neck radiation Orders: insulin glargine, Start: 10/26/22 22:00:00 EST, Dose = 15 unit(s), = 0.15 mL, Subcutaneous (INT), qHS, Rate: 0 mL/hr, Infuse over: 0 minute(s), 0, 10/26/22 16:46:00 EST metFORMIN, Start: 10/26/22 17:00:00 EST, Dose = 1,000 mg, = 2 tab(s), Oral, BID, 10/26/22 16:46:00 EST Consult to Diabetes Education Consult to Diabetes Education This is a 67-year-old male with significant past medical history of type 2 diabetes, carotid stenosis, CAD, hypertension, hyperlipidemia, who has been following cardiothoracic surgery outpatient following abnormal heart cath in June that revealed critical in-stent stenosis. Presented through same-day surgery for CABG x1 off-pump with Dr. Acosta 10/23/2022. Requiring insulin drip protocol postop. Also with uncontrolled type II prompting endocrine consult. Type II diabetic, uncontrolled. Home use of metformin 1 g twice daily, Starlix 120mg 3 times daily, Jardiance 25 daily and glimepiride 8 mg every morning. Fill history appears appropriate. Vocalizes medication compliance. States he has not been monitoring blood sugars closely or following restricted diet. A1c goals and potential for future complications with uncontrolled diabetes reviewed. Goal A1c is closer to 7% considering his comorbidities and age. He does have some confusion regarding A1c and blood glucose which was clarified with him. Consult placed previously for dietitian as well as diabetic education. He will need insulin teaching. He is overweight. Needs improvements in lifestyle. This was reviewed with him. Lipid panel was screened this admission, total cholesterol 120, triglycerides 105, HDL 35 LDL 64. Stable. Last 24 Hours: Cordero is transition to Lantus 15 units nightly, metformin 1 g twice daily and a 0-10 correctional scale achs. Glucose trends reviewed with the same, stable. Fasting 100 this morning. 157 before lunch today. GFR reviewed, greater than 60. Plan of care was discussed with patient and also reviewed with his who is at bedside today. Discussed need for consistent insulin administration for now. Goal to taper off the same as able. Need to optimize his diabetic medications for cardiovascular risk reduction. Patient also need to continue on levothyroxine at discharge for newly diagnosed hypothyroidism. Initial TSH screened high 6.392. Repeat testing was completed, TSH7.402 with free T4 low at 0.87 and free T3 of 2.73. Antibodies were negative. Started on levothyroxine 50 mcg daily over the weekend. Discussed proper administration of levothyroxine in a fasting state with only water and waiting at least 30 minutes until intake. He verbalizes understanding of the same. We will continue to reinforce. --> Continue current medication orders as is being done. Consider reintroduction of SGLT2 prior to discharge. Will review in evening rounds w/ Dr. Thompson Will continue to follow while inpatient. Time Spent Total time spent 35 minutes; greater than 50% spent in counseling and coordination of care. Digitally Signed by NASRA PICKENS on 10/27/2022 05:18 PM [facility] 10-27-2022 Note Date of Service 10/27/2022 Chief Complaint POD #4/POD #1 This is a 67-year-old male with a history of CAD status post PCI and stent, hypertension, hyperlipidemia, diabetes, and throat cancer status postchemotherapy and radiation 12 years ago. Positive stress test. Heart catheterization showed multivessel disease with chronic total occlusion RCA. He was found to have critical right carotid stenosis. Was seen by Dr. Viera. On 10/23/2022 he underwent a coronary bypass graft x1 using GUTIERREZ to the LAD off-pump per Dr. Acosta. He tolerated procedure well was transferred to CV SICU in stable condition. Extubated on operative day. On nitroprusside for blood pressure control. POD #1 initiated on metoprolol and lisinopril and as needed hydralazine. Transferred to the stepdown. POD #2 chest tubes discontinued. Initiated on Lasix. POD #3 underwent a right carotid angiogram with right carotid stent per Dr. Viera. He tolerated the procedure well. Plan transfer to stepdown once recovered in CV SICU. [1] POD #4/POD #1: Complains of continued right-sided headache since his carotid angiogram and right carotid stenting yesterday. Denies any blurred vision. Heart rate ranging 78-91. Start amiodarone 400 mg twice daily, discontinue Lasix and start Bumex 2 mg twice daily and increase potassium 3 times daily. Subjective Patient sitting up in bed complaining of right sided headache ever since his right carotid angiogram and stenting. States that his headache is improving however remains constant. Denies any blurred vision. Denies any midsternal chest pain or shortness of breath. Objective Vitals and Measurements T: 37.3 C (Oral) TMIN: 37.0 C (Oral) TMAX: 38.1 C (Oral) HR: 87(Apical) RR: 18 BP: 120/77 SpO2: 97% WT: 89.8 kg Intake and Output 7AM Yesterday to 7AM Today Intake and Output (Last 24 hours) Intake Oral Intake 960.00 Output Urine Voided 2300.00 Stool Count 1.00 Total Summary Total Intake 960.00 Total Output 2300.00 Fluid Balance -1340.00 Physical Exam Constitutional: Alert, oriented, appropriate HEENT: Normocephalic, atraumatic, slight right eye and right mouth droop (from cerebral palsy) Lungs: Unlabored respirations, lung sounds clear bilaterally,SPO2 95 to 97% on room air Heart: Normal sinus rhythm, S1-S2, no murmur or rub, heart rate ranging 78-93, temporary V pacer wire intact Abdomen: Soft, nontender, bowel sounds present, positive flatus, positive bowel movement 10/27/2022 Extremities: Well perfused, pedal pulses +1 bilaterally, no lower leg edema Integumentary: Midline sternal incision open air, edges well approximated, no drainage, Steri-Strips intact, right groin procedure site dressed with gauze dressing and intact Central venous access: Left subclavian triple-lumen Disposition: Home with spouse and home health care Weight Current Weight Dosing Weight: 92 kg (10/23/22) Current Weight: 89.8 kg (10/27/22) Current Weight: 91.9 kg (10/26/22) Medications Medications (39) Active Scheduled: (18) amiodarone 200 mg tablet 400 mg 2 tab(s), Oral, BIDM aspirin 81 mg EC 81 mg 1 tab(s), Oral, qDayM atorvastatin 40 mg tablet 40 mg 1 tab(s), Oral, qDay bumetanide 1 mg tablet 2 mg 2 tab(s), Oral, BID calcium carbonate 500 mg Chewable 500 mg 1 tab(s), Oral, qAM clopidogrel 75 mg Tablet 75 mg 1 tab(s), Oral, qDay docusate calcium 240 mg Capsule 240 mg 1 cap(s), Oral, BID enoxaparin 40 mg/ 0.4mL syringe 40 mg 0.4 mL, Subcutaneous, qDay insulin glargine 15 unit(s) 0.15 mL, Subcutaneous (INT), qHS insulin lispro 100 units/mL Soln (3 mL) Give 0-10 units/dose, Subcutaneous, achs levothyroxine 50 mcg tablet 50 mcg 1 tab(s), Oral, qDayAC lisinopril 2.5 mg tablet 2.5 mg 1 tab(s), Oral, BID metformin 500 mg ER tablet 1,000 mg 2 tab(s), Oral, BID metoprolol tartrate 50 mg tablet 50 mg 1 tab(s), Oral, BIDM multivitamin (Chromagen Forte) with iron Vitamin B Complex with C, Folic Acid and Iron tablet 1 tab(s), Oral, qDay mupirocin 2% Ointment 22 Gram(s) tube 1 david, Nostril, each, BID pantoprazole 40 mg EC tablet 40 mg 1 tab(s), Oral, qDayAC potassium chloride 20 mEq ER tablet 20 mEq 1 tab(s), Oral, TIDM Continuous: (2) D5/0.45%NACL + KCl 20 mEq/L 1,000 mL 1,000 mL, Intravenous, 70 mL/hr insulin regular 100 unit(s) + NS Premix Diluent 100 mL 100 mL, Intravenous PRN: (19) acetaminophen 325 mg Tablet 650 mg 2 tab(s), Oral, q4h acetaminophen 325 mg Tablet 650 mg 2 tab(s), Oral, q4h acetaminophen-HYDROcodone 325-5 mg tablet 1 tab(s), Oral, q4h Al hydrox/Mg hydrox/simethicone 200-200-20 mg/5 mL Susp UD 30 mL, Oral, q2h bisacodyl 10 mg Suppository 10 mg 1 supp, Rectal, qDay bismuth subsalicylate 262 mg/15 mL 240 mL 30 mL, Oral, AsDirected dextrose 50% Solution Disp syringe 50 mL 25 g 50 mL, IV Push, AsDirected dextrose 50% Solution Disp syringe 50 mL 12.5 g 25 mL, IV Push, AsDirected glucagon recombinant 1 mg 1 mg 1 mL, Intramuscular, AsDirected hydralazine 50 mg Tablet 50 mg 1 tab(s), Oral, q6h HYDROmorphone 0.5 mg/0.5 mL PF syringe 0.5 mg 0.5 mL, IV Push, q2h hydromorphone 1 mg/mL (1mL) INJ 1 mg 1 mL, IV Push, q2h magnesium hydroxide 8% Suspension 30 mL UD 30 mL, Oral, qDay ondansetron 2 mg/ 1 mL 2 mL INJ 4 mg 2 mL, IV Push, q4h ondansetron 2 mg/ 1 mL 2 mL INJ 4 mg 2 mL, IV Push, q6h phenol topical 1.4% Spr 1 spray(s), Topical, q1h polyethylene glycol 3350 - UD packet 17 gram(s) 15 mL, Oral, qDay potassium chloride (PMX) 20 mEq 50 mL, IV Piggyback, AsDirected potassium chloride (PMX) 15 mEq 50 mL, IV Piggyback, AsDirected Lab Results 10/27 03:26 WBC: 7.5 Hgb: 12.3 L Hct: 36.8 L Platelet: 303 Neutrophil %: 81.1 H Glucose Level: 113 Sodium Level: 138 Potassium Level: 4.0 BUN: 12.0 Creatinine Lvl (s): 0.79 10/26 16:01 Potassium Level: 3.8 10/26 04:34 WBC: 6.6 Hgb: 12.2 L Hct: 37.0 L Platelet: 269 Neutrophil %: 74.9 Glucose Level: 75 L Sodium Level: 136 Potassium Level: 3.8 BUN: 15.0 Creatinine Lvl (s): 0.77 Imaging Results and Diagnostics XR Chest 2 Views Result Date: October 27, 2022 Verified By: NA SHEPPARD MD CLINICAL STATEMENT: IMPRESSION: Minimal bibasilar atelectasis, similar to prior exam. Preliminary Report was Dictated by a Resident EKG Electrocardiogram - InProcess -- 10/27/22 6:00:00 EST, On the 4th post op day Assessment/Plan 1. CAD IN [place] ARTERY (CORONARY ARTERY DISEASE) (Renamed from CAD (CORONARY ARTERY DISEASE), [place] CORONARY ARTERY) S/P CABG x1 GUTIERREZ to LAD off pump 10/23/2022 EF 61% Normal sinus rhythm. Heart rate ranging 78-91. Blood pressures ranging 109/67-136/83. On aspirin, metoprolol, atorvastatin. Start amiodarone 400 mg twice daily. 2. DIABETES MELLITUS (Renamed from DIABETES) HgbA1C 12 Followed by [place] inpatient endocrinology. Glucoses ranging 100-148. On Humalog sliding scale insulin, metformin, Lantus 3. HYPERLIPIDEMIA (Renamed from HLD (HYPERLIPIDEMIA)) On atorvastatin 4. HYPERTENSION, UNSPECIFIED (Renamed from ESSENTIAL (PRIMARY) HYPERTENSION) Blood pressures ranging 109/67-136/83. On lisinopril, metoprolol 5. HISTORY OF THROAT CANCER S/P chemo and radiation 6. Carotid stenosis, right S/P Right carotid angiogram, right carotid stent 10/26/2022 Patient complains of a right-sided headache behind the right eye that has been present since his carotid angiogram and right carotid stenting per Dr. Viera on 10/26/2022. Denies any blurred vision. On Plavix. Dr. Viera made aware of this complaint. No new orders received. 7. History of cerebral palsy Slight droop of right eye and right mouth 8. Hx of head and neck radiation Plan: Start amiodarone 400 mg twice daily Discontinue Lasix Start Bumex 2 mg twice daily and increase potassium to 3 times daily Continue to encourage ambulation Labs and chest x-ray in a.m. Likely discharge home tomorrow Patient seen and discussed with Dr. Acosta. This note was generated using a voice recognition system. As a result, errors are possible and common, including incorrect words, spellings, grammar, gender, phrases, and punctuation that may be out of context or that were missed in checking this note before saving. Reasonable effort is made to correct such errors, but with demands of normal work flow, many are missed. [1] Progress Note; LIA GALAN 10/26/2022 12:19 EST Digitally Signed by AMOS ALVARADO on 10/27/2022 09:53 AM [facility] 10-27-2022 Vascular surgery Progress note Date of Service 10/27/22 Subjective She was stable evening on stepdown. Headache resolved Objective Vitals and Measurements T: 38.1 C (Oral) TMIN: 35 C TMAX: 38.1 C (Oral) HR: 91(Monitored) RR: 17 BP: 114/71 SpO2: 95% WT: 89.8 kg Intake and Output 7AM Yesterday to 7AM Today Intake and Output (Last 24 hours) Intake Oral Intake 960.00 Administration Information 300.00 Output Urine Voided 2300.00 Intra-Op EBL 30.00 Total Summary Total Intake 1260.00 Total Output 2330.00 Fluid Balance -1070.00 Physical Exam Elderly male alert cooperative no acute distress Cranial nerves grossly at baseline intact grossly 3 through 12 Groin sites clean and dry no hematoma Muscle strength equal in the upper lower extremities Weight Current Weight Dosing Weight: 92 kg (10/23/22) Current Weight: 89.8 kg (10/27/22) Current Weight: 91.9 kg (10/26/22) Medications Medications (38) Active Scheduled: (17) aspirin 81 mg EC 81 mg 1 tab(s), Oral, qDayM atorvastatin 40 mg tablet 40 mg 1 tab(s), Oral, qDay calcium carbonate 500 mg Chewable 500 mg 1 tab(s), Oral, qAM clopidogrel 75 mg Tablet 75 mg 1 tab(s), Oral, qDay docusate calcium 240 mg Capsule 240 mg 1 cap(s), Oral, BID enoxaparin 40 mg/ 0.4mL syringe 40 mg 0.4 mL, Subcutaneous, qDay furosemide 20 mg tablet 20 mg 1 tab(s), Oral, Daily insulin glargine 15 unit(s) 0.15 mL, Subcutaneous (INT), qHS insulin lispro 100 units/mL Soln (3 mL) Give 0-10 units/dose, Subcutaneous, achs levothyroxine 50 mcg tablet 50 mcg 1 tab(s), Oral, qDayAC lisinopril 2.5 mg tablet 2.5 mg 1 tab(s), Oral, BID metformin 500 mg ER tablet 1,000 mg 2 tab(s), Oral, BID metoprolol tartrate 50 mg tablet 50 mg 1 tab(s), Oral, BIDM multivitamin (Chromagen Forte) with iron Vitamin B Complex with C, Folic Acid and Iron tablet 1 tab(s), Oral, qDay mupirocin 2% Ointment 22 Gram(s) tube 1 david, Nostril, each, BID pantoprazole 40 mg EC tablet 40 mg 1 tab(s), Oral, qDayAC potassium chloride 20 mEq ER tablet 20 mEq 1 tab(s), Oral, BIDM Continuous: (2) D5/0.45%NACL + KCl 20 mEq/L 1,000 mL 1,000 mL, Intravenous, 70 mL/hr insulin regular 100 unit(s) + NS Premix Diluent 100 mL 100 mL, Intravenous PRN: (19) acetaminophen 325 mg Tablet 650 mg 2 tab(s), Oral, q4h acetaminophen 325 mg Tablet 650 mg 2 tab(s), Oral, q4h acetaminophen-HYDROcodone 325-5 mg tablet 1 tab(s), Oral, q4h Al hydrox/Mg hydrox/simethicone 200-200-20 mg/5 mL Susp UD 30 mL, Oral, q2h bisacodyl 10 mg Suppository 10 mg 1 supp, Rectal, qDay bismuth subsalicylate 262 mg/15 mL 240 mL 30 mL, Oral, AsDirected dextrose 50% Solution Disp syringe 50 mL 25 g 50 mL, IV Push, AsDirected dextrose 50% Solution Disp syringe 50 mL 12.5 g 25 mL, IV Push, AsDirected glucagon recombinant 1 mg 1 mg 1 mL, Intramuscular, AsDirected hydralazine 50 mg Tablet 50 mg 1 tab(s), Oral, q6h HYDROmorphone 0.5 mg/0.5 mL PF syringe 0.5 mg 0.5 mL, IV Push, q2h hydromorphone 1 mg/mL (1mL) INJ 1 mg 1 mL, IV Push, q2h magnesium hydroxide 8% Suspension 30 mL UD 30 mL, Oral, qDay ondansetron 2 mg/ 1 mL 2 mL INJ 4 mg 2 mL, IV Push, q4h ondansetron 2 mg/ 1 mL 2 mL INJ 4 mg 2 mL, IV Push, q6h phenol topical 1.4% Spr 1 spray(s), Topical, q1h polyethylene glycol 3350 - UD packet 17 gram(s) 15 mL, Oral, qDay potassium chloride (PMX) 20 mEq 50 mL, IV Piggyback, AsDirected potassium chloride (PMX) 15 mEq 50 mL, IV Piggyback, AsDirected Lab Results 10/27 03:26 WBC: 7.5 Hgb: 12.3 L Hct: 36.8 L Platelet: 303 Neutrophil %: 81.1 H Glucose Level: 113 Sodium Level: 138 Potassium Level: 4.0 BUN: 12.0 Creatinine Lvl (s): 0.79 10/26 16:01 Potassium Level: 3.8 10/26 04:34 WBC: 6.6 Hgb: 12.2 L Hct: 37.0 L Platelet: 269 Neutrophil %: 74.9 Glucose Level: 75 L Sodium Level: 136 Potassium Level: 3.8 BUN: 15.0 Creatinine Lvl (s): 0.77 EKG No qualifying data available. Assessment/Plan 1. CAD IN [place] ARTERY (CORONARY ARTERY DISEASE) (Renamed from CAD (CORONARY ARTERY DISEASE), [place] CORONARY ARTERY) S/P CABG x1 GUTIERREZ to LAD off pump 10/23/2022 EF 61% 2. DIABETES MELLITUS (Renamed from DIABETES) HgbA1C 12 3. HYPERLIPIDEMIA (Renamed from HLD (HYPERLIPIDEMIA)) 4. HYPERTENSION, UNSPECIFIED (Renamed from ESSENTIAL (PRIMARY) HYPERTENSION) 5. HISTORY OF THROAT CANCER S/P chemo and radiation 6. Carotid stenosis, right S/P Right carotid angiogram, right carotid stent 10/26/2022 Stop day 1 status post right carotid stent doing well. Maintain Plavix therapy on daily basis it ambulate from my standpoint. And follow-up with vascular surgery after discharge 7. History of cerebral palsy 8. Hx of head and neck radiation Orders: acetaminophen, Start: 10/26/22 8:39:00 EST, Dose = 650 mg, = 2 tab(s), Oral, q4h, PRN, Temperature greater than 38.6 degrees C, 0, 10/26/22 8:39:00 EST acetaminophen, Start: 10/26/22 8:39:00 EST, Dose = 650 mg, = 2 tab(s), Oral, q4h, PRN, Pain, scale 1-3, 0, 10/26/22 8:39:00 EST acetaminophen-hydrocodone, Start: 10/26/22 8:39:00 EST, Dose = 1 tab(s), Tab, Oral, q4h, PRN, Pain, scale 4-6, 0, 10/26/22 8:39:00 EST clopidogrel, Start: 10/28/22 9:00:00 EST, Dose = 75 mg, = 1 tab(s), Oral, qDay, 0, 10/27/22 9:00:00 EST Dextrose 5%/nacl/kcl 1,000 mL, Start: 10/26/22 8:39:00 EST, Rate: 70 mL/hr, 10/26/22 8:39:00 EST HYDROmorphone, Start: 10/26/22 8:39:00 EST, Dose = 0.5 mg, = 0.5 mL, IV Push, q2h, PRN, Pain, scale 4-6, 0, 10/26/22 8:39:00 EST HYDROmorphone, Start: 10/26/22 8:39:00 EST, Dose = 1 mg, = 1 mL, IV Push, q2h, PRN, Pain, scale 7-10, 0, 10/26/22 8:39:00 EST ondansetron, Start: 10/26/22 8:39:00 EST, Dose = 4 mg, = 2 mL, IV Push, q6h, PRN, Nausea, 0, 10/26/22 8:39:00 EST Arterial Line Insertion/Care Bedrest Communication Order (continuous) Communication Order (continuous) Communication Order (continuous) Discontinue Order Discontinue Order Elevate Head of Bed Incentive Spirometer Intake and Output IV Catheter Insertion/Care Nicko Diaz drain Nicko Diaz drain Neurological Check Notify Provider Notify Provider Notify Provider Notify Provider Oxygen Administration Prn Adapter Pulse Oximetry (ICU) SCIP Contraindication to VTE Mechanical Prophylaxis SCIP Contraindication to VTE Pharmacological Prophylaxis Titrate / Wean Oxygen Transfer/Change in Level of Care Up to Chair Vital Signs Call Parameters Vital Signs Call Parameters Digitally Signed by WILLIAM VIERA MD on 10/27/2022 07:15 AM [facility] 10-27-2022 Note ORIGINAL EXAMINATION: TWO XRAY VIEWS OF THE CHEST10/27/2022 6:26 am COMPARISON: 10/26/2022 HISTORY: ORDERING SYSTEM PROVIDED HISTORY: Reason for Exam: abnormal breath sounds FINDINGS: Grossly unchanged cardiomediastinal silhouette. No visible pneumothorax. No significant pleural fluid. Minimal bibasilar atelectasis again noted. No acute osseous findings. The spine is degenerative. Unchanged left subclavian approach central venous catheter. Prior median sternotomy. IMPRESSION: Minimal bibasilar atelectasis, similar to prior exam. Preliminary Report was Dictated by a Resident Interpreted by: Na Sheppard MD Preliminary Report By: Santiago Alonso Electronically signed By Na Sheppard MD Dictated Date: 10/27/2022 6:29:25 AM Prelim Date: 10/27/2022 6:31:33 AM Sign Date: 10/27/2022 7:05:17 AM Ordering Provider: [facility] 10-27-2022 Note ORIGINAL EXAMINATION: TWO XRAY VIEWS OF THE CHEST10/27/2022 6:26 am COMPARISON: 10/26/2022 HISTORY: ORDERING SYSTEM PROVIDED HISTORY: Reason for Exam: abnormal breath sounds FINDINGS: Grossly unchanged cardiomediastinal silhouette. No visible pneumothorax. No significant pleural fluid. Minimal bibasilar atelectasis again noted. No acute osseous findings. The spine is degenerative. Unchanged left subclavian approach central venous catheter. Prior median sternotomy. IMPRESSION: Minimal bibasilar atelectasis, similar to prior exam. Preliminary Report was Dictated by a Resident Interpreted by: Na Sheppard MD Preliminary Report By: Santiago Alonso Electronically signed By Na Sheppard MD Dictated Date: 10/27/2022 6:29:25 AM Prelim Date: 10/27/2022 6:31:33 AM Sign Date: 10/27/2022 7:05:17 AM Ordering Provider: [facility] 10-26-2022 Anesthesiology Consult note Patient: DIMITRY CAMARILLO Age: 67 years Sex: Male : 1955 Associated Diagnoses: None Author: DENICE FOY MD Postoperative Information Post Operative Info: Post op day: Day 0. Patient location: CVICU. Notes: s/p right carotid artery stenting.. Assessment Postanesthesia assessment Vitals: Vital signs from flowsheet : Vital Signs 10/26/2022 15:15 EST Heart Rate Monitored 86 bpm 10/26/2022 14:24 EST Apical Heart Rate 98 bpm 10/26/2022 14:15 EST Heart Rate Monitored 101 bpm HI Respiratory Rate 17 br/min Systolic Blood Pressure Non-Invasive 130 mmHg Diastolic Blood Pressure Non-Invasive 82 mmHg Mean Arterial Pressure (NBP) 97 mmHg , Oxygen Therapy : Oxygen Therapy & Oxygenation Information 10/26/2022 15:15 EST Oxygen Therapy Nasal cannula 0L-6L Oxygen Saturation 96 % Oxygen Flow Rate 2 . Mental status: at preoperative baseline. Respiratory function: respirations are non-labored. Respiratory support: none. CV function: Normal rate, Regular rhythm. Cardiovascular support: none. Pain: Satisfactory. Nausea status: Satisfactory. Postoperative hydration status: within normal limits. Notes: Patient is sufficiently recovered from anesthesia to participate in the evaluation. No follow-up care needed. No complications post-anesthesia.. Digitally Signed by DENICE FOY MD on 10/26/2022 04:00 PM [facility] 10-26-2022 Endocrinology Progress note Date of Service 10/26/22 Chief Complaint DM2; uncontrolled Subjective Chart reviewed. Overnight events and plan of care d/w patient. Patient denies new complaints. He was fasting this morning for right carotid stenting. Tolerated procedure well. As he was intubated when I saw him on Wednesday I did review with him his home medication regimen which she confirms. Discussed A1c which is 12.0. He is reflecting back on blood glucose trends which have been much improved. Extended discussion regarding A1c first blood glucose. A1c goals were reviewed. Plan of care discussed. Objective Vitals and Measurements T: 37.2 C (Oral) TMIN: 35 C TMAX: 37.4 C (Oral) HR: 102(Monitored) RR: 17 BP: 173/100 SpO2: 94% WT: 91.9 kg Intake and Output 7AM Yesterday to 7AM Today Intake and Output (Last 24 hours) Intake Oral Intake 1200.00 Administration Information 300.00 Supplement Intake 0.00 Output Urine Voided 3500.00 Intra-Op EBL 30.00 Stool Count 1.00 Total Summary Total Intake 1500.00 Total Output 3530.00 Fluid Balance -2030.00 Physical Exam Alert, lying in bed, no acute distress Respirations even and unlabored, on O2 via nasal cannula Answers questions appropriately. Mood and affect normal. Weight Current Weight Dosing Weight: 92 kg (10/23/22) Current Weight: 91.9 kg (10/26/22) Current Weight: 92.4 kg (10/25/22) Medications Medications (41) Active Scheduled: (19) alteplase 2 mg REC ( 2 mg/2 mL upon reconstitution or if dispensed in a syringe ) 2 mg 2 mL, IV Push, Once aspirin 81 mg EC 81 mg 1 tab(s), Oral, qDayM atorvastatin 40 mg tablet 40 mg 1 tab(s), Oral, qDay calcium carbonate 500 mg Chewable 500 mg 1 tab(s), Oral, qAM clopidogrel 75 mg Tablet 75 mg 1 tab(s), Oral, qDay docusate calcium 240 mg Capsule 240 mg 1 cap(s), Oral, BID enoxaparin 40 mg/ 0.4mL syringe 40 mg 0.4 mL, Subcutaneous, qDay furosemide 20 mg tablet 20 mg 1 tab(s), Oral, Daily heparin 10,000 unit(s) 1 mL, Miscellaneous, PREOP pharm insulin glargine 18 unit(s) 0.18 mL, Subcutaneous (INT), BID insulin lispro 100 units/mL Soln (3 mL) Give 0-10 units/dose, Subcutaneous, achs levothyroxine 50 mcg tablet 50 mcg 1 tab(s), Oral, qDayAC lisinopril 2.5 mg tablet 2.5 mg 1 tab(s), Oral, BID metoprolol tartrate 50 mg tablet 50 mg 1 tab(s), Oral, BIDM multivitamin (Chromagen Forte) with iron Vitamin B Complex with C, Folic Acid and Iron tablet 1 tab(s), Oral, qDay mupirocin 2% Ointment 22 Gram(s) tube 1 david, Nostril, each, BID pantoprazole 40 mg EC tablet 40 mg 1 tab(s), Oral, qDayAC potassium chloride 20 mEq ER tablet 20 mEq 1 tab(s), Oral, BIDM sterile water - Solution 10 mL 2.2 mL, IV Push, Once Continuous: (3) D5/0.45%NACL + KCl 20 mEq/L 1,000 mL 1,000 mL, Intravenous, 70 mL/hr insulin regular 100 unit(s) + NS Premix Diluent 100 mL 100 mL, Intravenous PHENYLephrine 40 mg / 250 mL PMX 40 mg 40 mg 250 mL, Intravenous PRN: (19) acetaminophen 325 mg Tablet 650 mg 2 tab(s), Oral, q4h acetaminophen 325 mg Tablet 650 mg 2 tab(s), Oral, q4h acetaminophen-HYDROcodone 325-5 mg tablet 1 tab(s), Oral, q4h Al hydrox/Mg hydrox/simethicone 200-200-20 mg/5 mL Susp UD 30 mL, Oral, q2h bisacodyl 10 mg Suppository 10 mg 1 supp, Rectal, qDay bismuth subsalicylate 262 mg/15 mL 240 mL 30 mL, Oral, AsDirected dextrose 50% Solution Disp syringe 50 mL 25 g 50 mL, IV Push, AsDirected dextrose 50% Solution Disp syringe 50 mL 12.5 g 25 mL, IV Push, AsDirected glucagon recombinant 1 mg 1 mg 1 mL, Intramuscular, AsDirected hydralazine 50 mg Tablet 50 mg 1 tab(s), Oral, q6h HYDROmorphone 0.5 mg/0.5 mL PF syringe 0.5 mg 0.5 mL, IV Push, q2h hydromorphone 1 mg/mL (1mL) INJ 1 mg 1 mL, IV Push, q2h magnesium hydroxide 8% Suspension 30 mL UD 30 mL, Oral, qDay ondansetron 2 mg/ 1 mL 2 mL INJ 4 mg 2 mL, IV Push, q4h ondansetron 2 mg/ 1 mL 2 mL INJ 4 mg 2 mL, IV Push, q6h phenol topical 1.4% Spr 1 spray(s), Topical, q1h polyethylene glycol 3350 - UD packet 17 gram(s) 15 mL, Oral, qDay potassium chloride (PMX) 20 mEq 50 mL, IV Piggyback, AsDirected potassium chloride (PMX) 15 mEq 50 mL, IV Piggyback, AsDirected Lab Results 10/26 04:34 WBC: 6.6 Hgb: 12.2 L Hct: 37.0 L Platelet: 269 Neutrophil %: 74.9 Glucose Level: 75 L Sodium Level: 136 Potassium Level: 3.8 BUN: 15.0 Creatinine Lvl (s): 0.77 10/25 07:11 Potassium Level: 4.2 10/25 04:07 WBC: 8.5 Hgb: 12.1 L Hct: 36.1 L Platelet: 250 Neutrophil %: 80.7 H Glucose Level: 117 H Sodium Level: 132 L Potassium Level: 3.7 BUN: 15.0 Creatinine Lvl (s): 0.76 Group Detail Date Value w/Units Flags Normal Range Normal Reference Text Comment Ind Glucose Testing Blood Glucose, Capillary 10/26/2022 12:33:00 EST 103 mg/dL 82-115 Glucose Testing Glucose Level 10/26/2022 04:34:00 EST 75 mg/dL LOW 82-115 Glucose Testing Blood Glucose, Capillary 10/25/2022 21:01:00 EST 109 mg/dL 82-115 Glucose Testing Blood Glucose, Capillary 10/25/2022 17:33:00 EST 129 mg/dL HI 82-115 Glucose Testing Blood Glucose, Capillary 10/25/2022 16:31:00 EST 61 mg/dL LOW 82-115 Y EKG No qualifying data available. Assessment/Plan 1. CAD IN [place] ARTERY (CORONARY ARTERY DISEASE) (Renamed from CAD (CORONARY ARTERY DISEASE), [place] CORONARY ARTERY) S/P CABG x1 GUTIERREZ to LAD off pump 10/23/2022 EF 61% 2. DIABETES MELLITUS (Renamed from DIABETES) HgbA1C 12 3. HYPERLIPIDEMIA (Renamed from HLD (HYPERLIPIDEMIA)) 4. HYPERTENSION, UNSPECIFIED (Renamed from ESSENTIAL (PRIMARY) HYPERTENSION) 5. HISTORY OF THROAT CANCER S/P chemo and radiation 6. Carotid stenosis, right S/P Right carotid angiogram, right carotid stent 10/26/2022 7. History of cerebral palsy 8. Hx of head and neck radiation Orders: insulin glargine, Start: 10/26/22 21:00:00 EST, Dose = 18 unit(s), = 0.18 mL, Subcutaneous (INT), BID, Rate: 0 mL/hr, Infuse over: 0 minute(s), 0, 10/26/22 21:00:00 EST insulin lispro (HumaLOG), Start: 10/26/22 12:00:00 EST, Give 0-10 units/dose, Subcutaneous, achs, 10/26/22 8:33:00 EST This is a 67-year-old male with significant past medical history of type 2 diabetes, carotid stenosis, CAD, hypertension, hyperlipidemia, who has been following cardiothoracic surgery outpatient following abnormal heart cath in June that revealed critical in-stent stenosis. Presented through same-day surgery for CABG x1 off-pump with Dr. Acosta 10/23/2022. Requiring insulin drip protocol postop. Also with uncontrolled type II prompting endocrine consult. Type II diabetic, uncontrolled. Home use of metformin 1 g twice daily, Starlix 120mg 3 times daily, Jardiance 25 daily and glimepiride 8 mg every morning. Fill history appears appropriate. Vocalizes medication compliance. States he has not been monitoring blood sugars closely or following restricted diet. A1c goals and potential for future complications with uncontrolled diabetes reviewed. Goal A1c is closer to 7% considering his comorbidities and age. He does have some confusion regarding A1c and blood glucose which was clarified with him. Consult placed today for dietitian as well as diabetic education. He will need insulin teaching. He is overweight. Needs improvements in lifestyle. This was reviewed with him. Last 72 hours: Transitioned off insulin drip with orders for MDI, Lantus 25 units twice daily, Humalog 6 units tidac. Orders adjusted today to Lantus 15 units qhs, previously ordered Lantus held this morning due to n.p.o. status and plans for OR. 0-[address]. Glucose trends reviewed, 75 this morning, 103 this afternoon ADA diet is in place --> Prandial insulin discontinued. Add Metformin at 1gm bid per his home regimen. Lantus orders adjusted. DC Ensure compact. Initial TSH screened high 6.392. Repeat testing was completed, TSH7.402 with free T4 low at 0.87 and free T3 of 2.73. Antibodies were negative. Started on levothyroxine 50 mcg daily over the weekend. Discussed proper administration of levothyroxine in a fasting state with only water and waiting at least 30 minutes until intake. He verbalizes understanding of the same. We will continue to reinforce. Lipid panel was screened this admission, total cholesterol 120, triglycerides 105, HDL 35 LDL 64. Stable. --> Discussed with the patient he will likely need insulin administration on discharge. He is not keen on the same and vocalizes he does not want to remain on insulin long-term. Discussed that this is also our goal. Would like to optimize oral agents as able but also ensure blood sugars remain reasonable as his A1c is very well elevated. Discussed risk for future complications with continued A1c elevation. He verbalizes the need to increase glucose monitoring and change his diet at home. Will review in evening rounds w/ Dr. Thompson Will continue to follow while inpatient. Time Spent Total time spent 35 minutes; greater than 50% spent in counseling and coordination of care. Digitally Signed by NASRA PICKENS on 10/26/2022 04:49 PM [facility] 10-26-2022 Note Date of Service 10/26/2022 POD #3 Chief Complaint This is a 67-year-old male with a history of CAD status post PCI and stent, hypertension, hyperlipidemia, diabetes, and throat cancer status postchemotherapy and radiation 12 years ago. Positive stress test. Heart catheterization showed multivessel disease with chronic total occlusion RCA. He was found to have critical right carotid stenosis. Was seen by Dr. Viera. On 10/23/2022 he underwent a coronary bypass graft x1 using GUTIERREZ to the LAD off-pump per Dr. Acosta. He tolerated procedure well was transferred to CV SICU in stable condition. Extubated on operative day. On nitroprusside for blood pressure control. POD #1 initiated on metoprolol and lisinopril and as needed hydralazine. Transferred to the stepdown. POD #2 chest tubes discontinued. Initiated on Lasix. POD #3 underwent a right carotid angiogram with right carotid stent per Dr. Viera. He tolerated the procedure well. Plan transfer to stepdown once recovered in CV SICU. Subjective No complaints Objective Vitals and Measurements T: 37.2 C (Oral) TMIN: 35 C TMAX: 37.4 C (Oral) HR: 86(Monitored) RR: 18 BP: 155/97 SpO2: 96% WT: 91.9 kg Intake and Output 7AM Yesterday to 7AM Today Intake and Output (Last 24 hours) Intake Oral Intake 1200.00 Administration Information 300.00 Supplement Intake 0.00 Output Urine Voided 3500.00 Intra-Op EBL 30.00 Stool Count 1.00 Total Summary Total Intake 1500.00 Total Output 3530.00 Fluid Balance -2030.00 Physical Exam Neurological: Alert and oriented x3, appropriate, drooping right eye and mouth at baseline Lungs: Scattered rhonchi, room air 96% Heart: Regular S1-S2, NSR rate 80s, temporary V wires intact Incision: Midsternal with Steri-Strips intact Abdomen: Soft, positive bowel sounds, positive BM Extremities: Well-perfused, no edema Continue Central Line: Poor IV access Disposition: Home with spouse Weight Current Weight Dosing Weight: 92 kg (10/23/22) Current Weight: 91.9 kg (10/26/22) Current Weight: 92.4 kg (10/25/22) Medications Medications (40) Active Scheduled: (18) alteplase 2 mg, IV Push, Once aspirin 81 mg EC 81 mg 1 tab(s), Oral, qDayM atorvastatin 40 mg tablet 40 mg 1 tab(s), Oral, qDay calcium carbonate 500 mg Chewable 500 mg 1 tab(s), Oral, qAM clopidogrel 75 mg Tablet 75 mg 1 tab(s), Oral, qDay docusate calcium 240 mg Capsule 240 mg 1 cap(s), Oral, BID enoxaparin 40 mg/ 0.4mL syringe 40 mg 0.4 mL, Subcutaneous, qDay furosemide 20 mg tablet 20 mg 1 tab(s), Oral, Daily heparin 10,000 unit(s) 1 mL, Miscellaneous, PREOP pharm insulin glargine 18 unit(s) 0.18 mL, Subcutaneous (INT), BID insulin lispro 100 units/mL Soln (3 mL) Give 0-10 units/dose, Subcutaneous, achs levothyroxine 50 mcg tablet 50 mcg 1 tab(s), Oral, qDayAC lisinopril 2.5 mg tablet 2.5 mg 1 tab(s), Oral, BID metoprolol tartrate 50 mg tablet 50 mg 1 tab(s), Oral, BIDM multivitamin (Chromagen Forte) with iron Vitamin B Complex with C, Folic Acid and Iron tablet 1 tab(s), Oral, qDay mupirocin 2% Ointment 22 Gram(s) tube 1 david, Nostril, each, BID pantoprazole 40 mg EC tablet 40 mg 1 tab(s), Oral, qDayAC potassium chloride 20 mEq ER tablet 20 mEq 1 tab(s), Oral, BIDM Continuous: (3) D5/0.45%NACL + KCl 20 mEq/L 1,000 mL 1,000 mL, Intravenous, 70 mL/hr insulin regular 100 unit(s) + NS Premix Diluent 100 mL 100 mL, Intravenous PHENYLephrine 40 mg / 250 mL PMX 40 mg 40 mg 250 mL, Intravenous PRN: (19) acetaminophen 325 mg Tablet 650 mg 2 tab(s), Oral, q4h acetaminophen 325 mg Tablet 650 mg 2 tab(s), Oral, q4h acetaminophen-HYDROcodone 325-5 mg tablet 1 tab(s), Oral, q4h Al hydrox/Mg hydrox/simethicone 200-200-20 mg/5 mL Susp UD 30 mL, Oral, q2h bisacodyl 10 mg Suppository 10 mg 1 supp, Rectal, qDay bismuth subsalicylate 262 mg/15 mL 240 mL 30 mL, Oral, AsDirected dextrose 50% Solution Disp syringe 50 mL 25 g 50 mL, IV Push, AsDirected dextrose 50% Solution Disp syringe 50 mL 12.5 g 25 mL, IV Push, AsDirected glucagon recombinant 1 mg 1 mg 1 mL, Intramuscular, AsDirected hydralazine 50 mg Tablet 50 mg 1 tab(s), Oral, q6h HYDROmorphone 0.5 mg/0.5 mL PF syringe 0.5 mg 0.5 mL, IV Push, q2h hydromorphone 1 mg/mL (1mL) INJ 1 mg 1 mL, IV Push, q2h magnesium hydroxide 8% Suspension 30 mL UD 30 mL, Oral, qDay ondansetron 2 mg/ 1 mL 2 mL INJ 4 mg 2 mL, IV Push, q4h ondansetron 2 mg/ 1 mL 2 mL INJ 4 mg 2 mL, IV Push, q6h phenol topical 1.4% Spr 1 spray(s), Topical, q1h polyethylene glycol 3350 - UD packet 17 gram(s) 15 mL, Oral, qDay potassium chloride (PMX) 20 mEq 50 mL, IV Piggyback, AsDirected potassium chloride (PMX) 15 mEq 50 mL, IV Piggyback, AsDirected Lab Results 10/26 04:34 WBC: 6.6 Hgb: 12.2 L Hct: 37.0 L Platelet: 269 Neutrophil %: 74.9 Glucose Level: 75 L Sodium Level: 136 Potassium Level: 3.8 BUN: 15.0 Creatinine Lvl (s): 0.77 10/25 07:11 Potassium Level: 4.2 10/25 04:07 WBC: 8.5 Hgb: 12.1 L Hct: 36.1 L Platelet: 250 Neutrophil %: 80.7 H Glucose Level: 117 H Sodium Level: 132 L Potassium Level: 3.7 BUN: 15.0 Creatinine Lvl (s): 0.76 Imaging Results and Diagnostics XR Chest 2 Views Result Date: October 26, 2022 Verified By: WONG HAJI, MAHOGANY [facility] CLINICAL STATEMENT: IMPRESSION: Subsegmental atelectasis at both lung bases. Assessment/Plan 1. CAD IN [place] ARTERY (CORONARY ARTERY DISEASE) (Renamed from CAD (CORONARY ARTERY DISEASE), [place] CORONARY ARTERY) S/P CABG x1 GUTIERREZ to LAD off pump 10/23/2022 EF 61% ASA, metoprolol, atorvastatin 2. DIABETES MELLITUS (Renamed from DIABETES) HgbA1C 12 Glucose 61-129, [place] inpatient endocrinology following 3. HYPERLIPIDEMIA (Renamed from HLD (HYPERLIPIDEMIA)) Atorvastatin 4. HYPERTENSION, UNSPECIFIED (Renamed from ESSENTIAL (PRIMARY) HYPERTENSION) Blood pressure 133/85-155/97, metoprolol, lisinopril 5. HISTORY OF THROAT CANCER S/P chemo and radiation 6. Carotid stenosis, right S/P Right carotid angiogram, right carotid stent 10/26/20[address] Right carotid stent per Dr. Viera 7. History of cerebral palsy Slight droop right eye and mouth 8. Hx of head and neck radiation Orders: alteplase, Start: 10/26/22 11:00:00 EST, Dose = 2 mg, IV Push, Once, Stop: 10/26/22 11:00:00 EST, 10/26/22 10:54:[address] Acosta Digitally Signed by LIA GALAN on 10/26/2022 12:21 PM [facility] 10-26-2022 Note ORIGINAL Images acquired, not reported on this accession number. [facility] 10-26-2022 Note ORIGINAL Images acquired, not reported on this accession number. [facility] 10-26-2022 Anesthesiology Consult note Patient: DIMITRY CAMARILLO Age: 67 years Sex: Male : 1955 Associated Diagnoses: None Author: DENICE FOY MD Preoperative Information Time of last food or liquid consumption: 10/25/2022 23:00:00 Anesthesia history Patient's history: negative. Family's history: negative. History of Present Illness 67 yr old M pt with right carotid artery stenosis who had off pump CABG 3 days ago and previous throat ca s/p chemo/radiation presents for carotid artery angiogram and stenting. PMH: Coronary artery PCI/stent, HTN, HLD, DM, hypothyroidism and cerebral palsy. Review of Systems Ear/Nose/Mouth/Throat: Negative except as documented in history of present illness. Respiratory: Negative except as documented in history of present illness. Cardiovascular: Negative except as documented in history of present illness. Gastrointestinal: Negative except as documented in history of present illness. Genitourinary: Negative except as documented in history of present illness. Endocrine: Negative except as documented in history of present illness. Musculoskeletal: Negative except as documented in history of present illness. Integumentary: Negative except as documented in history of present illness. Neurologic: Negative except as documented in history of present illness. Health Status Allergies: Allergic Reactions (Selected) NKA, Allergies (1) ActiveReaction NKANone Documented Current medications: (Selected) Inpatient Medications Ordered Ancef: 1 gram(s), 10 mL, 120 mL/hr, IV Push (INT), PREOP pharm Dextrose: 12.5 g, 25 mL, IV Push, AsDirected, PRN: Low blood sugar Dulcolax Laxative: 10 mg, 1 supp, Rectal, qDay, PRN: Constipation GlucaGen: 1 mg, 1 mL, Intramuscular, AsDirected, PRN: Hypoglycemia Heparin 10,000 units/mL: 10,000 unit(s), 1 mL, 0 mL/hr, Miscellaneous, PREOP pharm HumaLOG 100 units/mL subcutaneous solution: 6 unit(s), 0.06 mL, Subcutaneous, TIDAC Insulin Regular for IV 100 unit(s) + NS Premix Diluent 100 mL: Infuse as directed, Intravenous KCL: 20 mEq, 1 tab(s), Oral, BIDM Lantus: 25 unit(s), 0.25 mL, 0 mL/hr, Subcutaneous (INT), BID Lasix: 20 mg, 1 tab(s), Oral, Daily Maalox: 30 mL, Oral, q2h, PRN: Indigestion Milk of Magnesia: 30 mL, Oral, qDay, PRN: Constipation Miralax Powder Packet: 17 gram(s), 15 mL, Oral, qDay, PRN: Constipation Multiple Vitamins with Iron oral tablet: 1 tab(s), Oral, qDay Pepto-Bismol: 30 mL, Oral, AsDirected, PRN: Loose stool Plavix: 75 mg, 1 tab(s), Oral, qDay Protonix: 40 mg, 1 tab(s), Oral, qDayAC Sore Throat [place]: 1 spray(s), Topical, q1h, PRN: Sore throat Surfak Stool Softener: 240 mg, 1 cap(s), Oral, BID acetaminophen: 650 mg, 2 tab(s), Oral, q4h, PRN: Pain, scale 1-3 aspirin 81 mg oral delayed release tablet: 81 mg, 1 tab(s), Oral, qDayM atorvastatin: 40 mg, 1 tab(s), Oral, qDay calcium carbonate: 500 mg, 1 tab(s), Oral, qAM enoxaparin: 40 mg, 0.4 mL, Subcutaneous, qDay glucose: 25 g, 50 mL, IV Push, AsDirected, PRN: Low blood sugar hydrALAZINE: 50 mg, 1 tab(s), Oral, q6h, PRN: Systolic BP: See order comments levothyroxine: 50 mcg, 1 tab(s), Oral, qDayAC lisinopril: 2.5 mg, 1 tab(s), Oral, BID metoprolol tartrate (Lopressor): 50 mg, 1 tab(s), Oral, BIDM mupirocin 2% topical ointment: 1 david, Nostril, each, BID ondansetron: 4 mg, 2 mL, IV Push, q4h, PRN: Nausea/Vomiting phenylephrine 40 mg: Infuse as directed for CVOR, Intravenous, Stop: 10/26/22 22:59:00 EST potassium chloride bolus: 15 mEq, 50 mL, 50 mL/hr, IV Piggyback, AsDirected, PRN: for K+ level 3.5 - 3.9 mEq/L potassium chloride bolus: 20 mEq, 50 mL, 50 mL/hr, IV Piggyback, AsDirected, PRN: for K+ level 3-3.4 mEq/L traMADol: 25 mg, 0.5 tab(s), Oral, q4h, PRN: Pain, scale 4-6 traMADol: 50 mg, 1 tab(s), Oral, q4h, PRN: Pain, scale 7-10 Prescriptions Prescribed metoprolol tartrate 100 mg oral tablet: 100 mg, 1 tab(s), Oral, qAM, 60 tab(s), 10 Refill(s) Documented Medications Documented Amaryl 4 mg oral tablet: 8 mg, 2 tab(s), Oral, qAM, 0 Refill(s) Aspir-Low 81 mg oral delayed release tablet: 81 mg, 1 tab(s), Oral, qAM, 30 tab(s), 0 Refill(s) Cinnamon 1000 mg capsule: 2 cap(s), Oral, qAM, 0 Refill(s) Jardiance 25 mg oral tablet: 25 mg, 1 tab(s), Oral, qAM, 0 Refill(s) Misc Medication: 1 tab(s), Oral, qAM, CO Q 10 400mg, 0 Refill(s) Ultra Darek Krill Oil 500 mg oral capsule: 500 mg, 1 cap(s), Oral, BID, 0 Refill(s) calcium (as carbonate) 600 mg oral tablet: 600 mg, 1 tab(s), Oral, qAM, 0 Refill(s) isosorbide mononitrate 60 mg oral tablet, extended release: 60 mg, 1 tab(s), Oral, qAM, TAKE 1 TABLET BY MOUTH ONCE DAILY lisinopril 10 mg oral tablet: 10 mg, 1 tab(s), Oral, qAM, 0 Refill(s) magnesium glycinate 200 mg oral tablet: 400 mg, 2 tab(s), Oral, qAM, 0 Refill(s) metFORMIN 1000 mg oral tablet: 1,000 mg, 1 tab(s), Oral, BIDM nateglinide 120 mg oral tablet: 120 mg, 1 tab(s), Oral, TIDAC, 270 tab(s), 0 Refill(s) nitroglycerin 0.4 mg sublingual spray: 0.4 mg, 1 spray(s), Sublingual, q5min, PRN: as needed for chest pain, 12 gram(s), 0 Refill(s) simvastatin 80 mg oral tablet (NF): 80 mg, 1 tab(s), Oral, qHS, Medications (36) Active Scheduled: (18) aspirin 81 mg EC 81 mg 1 tab(s), Oral, qDayM atorvastatin 40 mg tablet 40 mg 1 tab(s), Oral, qDay calcium carbonate 500 mg Chewable 500 mg 1 tab(s), Oral, qAM ceFAZolin syringe 1 gram(s) 10 mL, IV Push (INT), PREOP pharm clopidogrel 75 mg Tablet 75 mg 1 tab(s), Oral, qDay docusate calcium 240 mg Capsule 240 mg 1 cap(s), Oral, BID enoxaparin 40 mg/ 0.4mL syringe 40 mg 0.4 mL, Subcutaneous, qDay furosemide 20 mg tablet 20 mg 1 tab(s), Oral, Daily heparin 10,000 unit(s) 1 mL, Miscellaneous, PREOP pharm insulin glargine 25 unit(s) 0.25 mL, Subcutaneous (INT), BID insulin lispro 100 units/mL Soln (3 mL) 6 unit(s) 0.06 mL, Subcutaneous, TIDAC levothyroxine 50 mcg tablet 50 mcg 1 tab(s), Oral, qDayAC lisinopril 2.5 mg tablet 2.5 mg 1 tab(s), Oral, BID metoprolol tartrate 50 mg tablet 50 mg 1 tab(s), Oral, BIDM multivitamin (Chromagen Forte) with iron Vitamin B Complex with C, Folic Acid and Iron tablet 1 tab(s), Oral, qDay mupirocin 2% Ointment 22 Gram(s) tube 1 david, Nostril, each, BID pantoprazole 40 mg EC tablet 40 mg 1 tab(s), Oral, qDayAC potassium chloride 20 mEq ER tablet 20 mEq 1 tab(s), Oral, BIDM Continuous: (2) insulin regular 100 unit(s) + NS Premix Diluent 100 mL 100 mL, Intravenous PHENYLephrine 40 mg / 250 mL PMX 40 mg 40 mg 250 mL, Intravenous PRN: (16) acetaminophen 325 mg Tablet 650 mg 2 tab(s), Oral, q4h Al hydrox/Mg hydrox/simethicone 200-200-20 mg/5 mL Susp UD 30 mL, Oral, q2h bisacodyl 10 mg Suppository 10 mg 1 supp, Rectal, qDay bismuth subsalicylate 262 mg/15 mL 240 mL 30 mL, Oral, AsDirected dextrose 50% Solution Disp syringe 50 mL 25 g 50 mL, IV Push, AsDirected dextrose 50% Solution Disp syringe 50 mL 12.5 g 25 mL, IV Push, AsDirected glucagon recombinant 1 mg 1 mg 1 mL, Intramuscular, AsDirected hydralazine 50 mg Tablet 50 mg 1 tab(s), Oral, q6h magnesium hydroxide 8% Suspension 30 mL UD 30 mL, Oral, qDay ondansetron 2 mg/ 1 mL 2 mL INJ 4 mg 2 mL, IV Push, q4h phenol topical 1.4% Spr 1 spray(s), Topical, q1h polyethylene glycol 3350 - UD packet 17 gram(s) 15 mL, Oral, qDay potassium chloride (PMX) 20 mEq 50 mL, IV Piggyback, AsDirected potassium chloride (PMX) 15 mEq 50 mL, IV Piggyback, AsDirected tramadol 50 mg Tablet 50 mg 1 tab(s), Oral, q4h tramadol 50 mg Tablet 25 mg 0.5 tab(s), Oral, q4h Problem list: Medical Cardiac catheterization / SNOMED CT 71271432 / Confirmed Carotid stenosis / SNOMED CT 749609569 / Confirmed ABNORMAL NUCLEAR STRESS TEST (Renamed from ABNORMAL CLINICAL FINDING) / SNOMED CT 5754517656 / Confirmed CAD IN [place] ARTERY (CORONARY ARTERY DISEASE) (Renamed from CAD (CORONARY ARTERY DISEASE), [place] CORONARY ARTERY) / SNOMED CT [id number] / Confirmed DIABETES MELLITUS (Renamed from DIABETES) / SNOMED CT [id number] / Confirmed HYPERTENSION, UNSPECIFIED (Renamed from ESSENTIAL (PRIMARY) HYPERTENSION) / SNOMED CT 91852627 / Confirmed History of cerebral palsy / SNOMED CT [id number] / Confirmed HISTORY OF THROAT CANCER / SNOMED CT 3333609718 / Confirmed HYPERLIPIDEMIA (Renamed from HLD (HYPERLIPIDEMIA)) / SNOMED CT [id number] / Confirmed INCREASED BMI (Renamed from OVERWEIGHT) / SNOMED CT 431644720 / Confirmed Preoperative clearance / SNOMED CT 659950272 / Confirmed, Active Problems (13) ABNORMAL NUCLEAR STRESS TEST (Renamed from ABNORMAL CLINICAL FINDING) CAD IN [place] ARTERY (CORONARY ARTERY DISEASE) (Renamed from CAD (CORONARY ARTERY DISEASE), [place] C Cardiac catheterization Carotid stenosis DIABETES MELLITUS (Renamed from DIABETES) History of cerebral palsy HISTORY OF THROAT CANCER HYPERLIPIDEMIA (Renamed from HLD (HYPERLIPIDEMIA)) HYPERTENSION, UNSPECIFIED (Renamed from ESSENTIAL (PRIMARY) HYPERTENSION) INCREASED BMI (Renamed from OVERWEIGHT) Long-term use of aspirin therapy Preoperative clearance Stented coronary artery Histories Past Medical History: Resolved NUMBNESS AND TINGLING IN LEFT ARM ([id number]): Resolved. Family History: Heart disease Mother Heart attack Mother Diabetes Father Brother Procedure history: CABG x 1 - Coronary artery bypass graft x 1 ([id number]) on 10/23/2022 at 67 Years. Comments: 10/23/2022 20:50 Zahra Holder RN Off pump, using the left internal mammary artery to the LAD. Insertion of temporary pacing wires. Cardiac catheterization ([id number]) on 07/14/2022 at 67 Years. Comments: 08/03/2022 8:46 Anusha Simental RN 07/14/22 SUMMARY: 1. Left ventricle: Systolic function is normal. The estimated ejection fraction is 55-60%. Hypokinesis of the proximal diaphragmatic myocardium. 2. LAD: Proximal vessel lesion: There is an 80% in-stent recurrent stenosis. 3. 1st diagonal: Ostial lesion: There is a 95% stenosis. Proximal vessel lesion: There is an 85% stenosis. 4. 3rd obtuse marginal: Proximal vessel lesion: There is a 90% stenosis. 5. Right coronary: Proximal vessel lesion: There is a 100% chronic total occlusion. Miscellaneous ([id number]) in the month of 03/2021 at 65 Years. Comments: 02/11/2022 14:14 Mckenna Rangel LPN Surgery on prostate. pt not sure of name or procedure. Coronary angioplasty ([id number]) on 08/04/2013 at 58 Years. Stent ([id number]) on 08/04/2013 at 58 Years. Comments: 01/09/2020 16:03 Ashley Resendiz LPN small vessel disease, chronic total occlusion RCA Drug-eluding stent to SECOND MARGINAL BRANCH TURP - Transurethral resection of prostate ([id number]). Tonsillectomy and adenoidectomy ([id number]). Social History Social & Psychosocial Habits Alcohol 01/09/2020 Use: Never Employment/School 02/17/2021 Status: Employed Substance Abuse 01/09/2020 Use: Never Tobacco 01/09/2020 Tobacco Use: Former smoker, quit more Comment: quit 20+ years ago - 01/09/2020 16:01 - Ashley Sanchez LPN Home/Environment 10/23/2022 Domestic Concerns None Safe place to go: Yes Current Home Treatments None Special Services and Community Resources None Marital Status of Patient if Patient Independent Adult: Nutrition/Health 01/09/2020 Caffeine intake amount: tea - 1/2 gallon/day . Physical Examination Vital Signs 10/26/2022 6:32 EST Temperature Oral 36.8 DegC Heart Rate Monitored 85 bpm Respiratory Rate 18 br/min Systolic Blood Pressure Non-Invasive 102 mmHg Diastolic Blood Pressure Non-Invasive 70 mmHg Mean Arterial Pressure (NBP) 78 mmHg Reason For Taking VItal Signs Routine 10/26/2022 4:19 EST Temperature Oral 36.9 DegC Heart Rate Monitored 76 bpm Respiratory Rate 20 br/min Systolic Blood Pressure Non-Invasive 121 mmHg Diastolic Blood Pressure Non-Invasive 82 mmHg Mean Arterial Pressure (NBP) 94 mmHg Reason For Taking VItal Signs Routine 10/26/2022 1:30 EST Heart Rate Monitored 75 bpm 10/25/2022 23:24 EST Heart Rate Monitored 76 bpm 10/25/2022 23:15 EST Heart Rate Monitored 79 bpm 10/25/2022 23:10 EST Heart Rate Monitored 79 bpm 10/25/2022 23:06 EST Heart Rate Monitored 80 bpm 10/25/2022 23:05 EST Temperature Oral 37.4 DegC HI Heart Rate Monitored 80 bpm Respiratory Rate 16 br/min Systolic Blood Pressure Non-Invasive 107 mmHg Diastolic Blood Pressure Non-Invasive 75 mmHg Mean Arterial Pressure (NBP) 86 mmHg Reason For Taking VItal Signs Routine 10/25/2022 21:09 EST Heart Rate Monitored 77 bpm Systolic Blood Pressure Non-Invasive 118 mmHg (Modified) Diastolic Blood Pressure Non-Invasive 64 mmHg (Modified) Mean Arterial Pressure (NBP) 80 mmHg (Modified) 10/25/2022 19:05 EST Temperature Oral 37.2 DegC Heart Rate Monitored 78 bpm Respiratory Rate 17 br/min Systolic Blood Pressure Non-Invasive 125 mmHg Diastolic Blood Pressure Non-Invasive 81 mmHg Mean Arterial Pressure (NBP) 93 mmHg Reason For Taking VItal Signs Routine 10/25/2022 17:33 EST Apical Heart Rate 87 bpm Heart Rate Monitored 86 bpm Systolic Blood Pressure Non-Invasive 120 mmHg Diastolic Blood Pressure Non-Invasive 79 mmHg Mean Arterial Pressure (NBP) 92 mmHg 10/25/2022 15:34 EST Temperature Oral 37.3 DegC Heart Rate Monitored 86 bpm Respiratory Rate 16 br/min Systolic Blood Pressure Non-Invasive 131 mmHg Diastolic Blood Pressure Non-Invasive 79 mmHg Mean Arterial Pressure (NBP) 92 mmHg Reason For Taking VItal Signs Routine 10/25/2022 12:42 EST Heart Rate Monitored 78 bpm 10/25/2022 11:39 EST Temperature Oral 37 DegC Heart Rate Monitored 72 bpm Respiratory Rate 16 br/min Systolic Blood Pressure Non-Invasive 109 mmHg Diastolic Blood Pressure Non-Invasive 74 mmHg Mean Arterial Pressure (NBP) 85 mmHg Reason For Taking VItal Signs Routine 10/25/2022 8:18 EST Apical Heart Rate 89 bpm 10/25/2022 8:04 EST Temperature Oral 36.5 DegC Heart Rate Monitored 79 bpm Respiratory Rate 16 br/min Systolic Blood Pressure Non-Invasive 134 mmHg Diastolic Blood Pressure Non-Invasive 85 mmHg Mean Arterial Pressure (NBP) 100 mmHg Reason For Taking VItal Signs Routine 10/25/2022 4:13 EST Temperature Oral 36.6 DegC Heart Rate Monitored 72 bpm Respiratory Rate 17 br/min Systolic Blood Pressure Non-Invasive 136 mmHg Diastolic Blood Pressure Non-Invasive 83 mmHg Mean Arterial Pressure (NBP) 97 mmHg Reason For Taking VItal Signs Routine Vital Signs(last 24 hrs) Last Charted Temp Oral36.8 DegC (OCT 26 06:32) Heart Rate [id number] bpm (OCT 26 06:32) Resp Rate 18 br/min (OCT 26 06:32) [id number] mmHg (OCT 26 06:32) DBP70 mmHg (OCT 26 06:32) Measurements from flowsheet : Measurements 10/26/2022 5:28 EST Current Weight 91.9 kg Type of Scale Used Standing 10/25/2022 4:23 EST Current Weight 92.4 kg Pain assessment: Pain Assessment 10/26/2022 4:19 EST Primary Pain Intensity 0 Pain Scale Type 0-10 Pain scale 10/26/2022 0:21 EST Pain Scale Assessment Behavioral pain scale Primary Pain Location Chest Primary Pain Intensity 3 Primary Pain Nonverbal Response Appears restful Pain Scale Type Behavioral pain scale 10/25/2022 23:05 EST Primary Pain Location Chest Primary Pain Laterality Left Primary Pain Intensity 8 Primary Pain Quality Sharp Primary Pain Pharma Intervention Medication Primary Pain Non-Pharma Intervention Repositioning Primary Pain Aggravating Factors Breathing Primary Pain Nonverbal Response Nods Yes Pain Scale Type 0-10 Pain scale 10/25/2022 20:50 EST Pain Scale Assessment Behavioral pain scale Primary Pain Location Chest Primary Pain Intensity 3 Primary Pain Nonverbal Response Appears restful Pain Scale Type Behavioral pain scale 10/25/2022 19:05 EST Primary Pain Location Chest Primary Pain Laterality Medial Primary Pain Intensity 9 Primary Pain Quality Incisional Primary Pain Pharma Intervention Medication Primary Pain Aggravating Factors Breathing Primary Pain Nonverbal Response Nods Yes Pain Scale Type 0-10 Pain scale 10/25/2022 19:03 EST Primary Pain Intensity 9 Pain Scale Type 0-10 Pain scale 10/25/2022 15:34 EST Primary Pain Intensity 0 Primary Pain Nonverbal Response Nods No Pain Scale Type 0-10 Pain scale 10/25/2022 13:24 EST Pain Scale Assessment 0-10 Pain scale Primary Pain Location Chest Primary Pain Intensity 4 10/25/2022 12:42 EST Primary Pain Location Chest Primary Pain Laterality Medial Primary Pain Intensity 7 Primary Pain Onset Gradual Primary Pain Quality Aching, Incisional Primary Pain Pharma Intervention Medication Primary Pain Non-Pharma Intervention Splinting Primary Pain Alleviating Factors Immobilization, Repositioning Pain Scale Type 0-10 Pain scale 10/25/2022 9:32 EST Pain Scale Assessment 0-10 Pain scale Primary Pain Location Chest Primary Pain Intensity 4 10/25/2022 8:18 EST Primary Pain Intensity 7 Primary Pain Intensity 7 10/25/2022 8:04 EST Primary Pain Location Chest Primary Pain Laterality Medial Primary Pain Intensity 7 Primary Pain Time Pattern acute Primary Pain Onset Gradual Primary Pain Quality Aching, Incisional Primary Pain Pharma Intervention Medication Primary Pain Non-Pharma Intervention Splinting Primary Pain Alleviating Factors Immobilization, Repositioning Pain Scale Type 0-10 Pain scale 10/25/2022 6:17 EST Pain Scale Assessment 0-10 Pain scale Primary Pain Location Chest Primary Pain Intensity 3 10/25/2022 4:13 EST Primary Pain Location Chest Primary Pain Laterality Medial Primary Pain Intensity 4 Primary Pain Time Pattern acute Primary Pain Onset Gradual Primary Pain Quality Aching, Incisional Primary Pain Pharma Intervention Medication Primary Pain Non-Pharma Intervention Splinting Primary Pain Alleviating Factors Immobilization Pain Scale Type 0-10 Pain scale 10/25/2022 2:11 EST Primary Pain Location Chest Primary Pain Intensity 7 Primary Pain Time Pattern intermittent Primary Pain Onset Gradual Primary Pain Quality Incisional Primary Pain Pharma Intervention Medication Primary Pain Non-Pharma Intervention Splinting Primary Pain Alleviating Factors Immobilization, Medication Pain Scale Type 0-10 Pain scale 10/25/2022 1:36 EST Primary Pain Intensity 4 . General: Alert and oriented, No acute distress. Airway: Normal temporomandibular joint mobility. Mallampati classification: III (soft palate, base of uvula visible). Head: Normocephalic, Atraumatic. Dentition Evaluation: No teeth. Neck: Supple, Non-tender. Respiratory: Lungs are clear to auscultation, Respirations are non-labored. Cardiovascular: Normal rate, Regular rhythm. Heart Sounds: Normal. Gastrointestinal: Soft, Non-tender. Musculoskeletal Normal range of motion. Normal strength. No swelling. Integumentary: Intact, Warm, No pallor. Neurologic: Alert, Oriented, No focal deficits. Review / Management Results review: Labs (Last four charted values) WBC 6.6(OCT 26)8.5(OCT 25)9.9(OCT 24)5.3(OCT 23) Hgb L 12.2(OCT 26)L 12.1(OCT 25)L 11.8(OCT 24)L 12.5(OCT 23) Hct L 37.0(OCT 26)L 36.1(OCT 25)L 35.2(OCT 24)L 37.0(OCT 23) Plt 269(OCT 26)250(OCT 25)271(OCT 24)261(OCT 23) Na 136(OCT 26)L 132(OCT 25)136(OCT 24)140(OCT 23) K 3.8(OCT 26)4.2(OCT 25)3.7(OCT 25)4.0(OCT 24) CO2 27(OCT 26)25(OCT 25)25(OCT 24)22(OCT 23) Cl 104(OCT 26)102(OCT 25)105(OCT 24)106(OCT 23) Cr 0.77(OCT 26)0.76(OCT 25)0.60(OCT 24)0.68(OCT 23) BUN 15.0(OCT 26)15.0(OCT 25)12.0(OCT 24)20.0(OCT 23) Glucose L 75(OCT 26)H 117(OCT 25)106(OCT 24)H 222(OCT 23) Mg 2.4(OCT 23)1.8(OCT 23)1.8(OCT 23) Phos 2.9(OCT 23) Ca 9.0(OCT 26)9.0(OCT 25)L 8.6(OCT 24)L 8.1(OCT 23) PT 12.6(OCT 23)10.8(OCT 23) INR 1.1(OCT 23)0.9(OCT 23) PTT H 76.3(OCT 23)33.9(OCT 23) , Lab results 10/26/2022 6:32 EST Temperature Oral 36.8 DegC Heart Rate Monitored 85 bpm Respiratory Rate 18 br/min Systolic Blood Pressure Non-Invasive 102 mmHg Diastolic Blood Pressure Non-Invasive 70 mmHg Mean Arterial Pressure (NBP) 78 mmHg Reason For Taking VItal Signs Routine Oxygen Therapy Room air Oxygen Saturation 95 % Pt./Caregiver Remote Cont.Visual Monitor Verbalizes/Nonverbally indicates understanding Activity Status ADL Awake, Remains up in chair, Repositions self, Watching TV Standard Safety ID band on, Call device within reach, Bed in low position, Wheels locked, Upper/Half-Length side-rails up, Phone within reach, personal items within reach, Safety level maintained High Risk Safety Room check performed Demonstrates Correct Call Light Use Yes 10/26/2022 6:13 EST Mechanical VTE Prophylaxis Education Not Done: See ICU flow (Not Done) Sequential Compression Device Form Not Done (Not Done) 10/26/2022 5:39 EST Bed Bath Independent Oral Care Independent Skin Care Done Skin Care Product Applied CHG bath Skin Care Preventative Intervention(s) heel(s)s elevated Princess Care Independent Linen Change Done 10/26/2022 5:38 EST Consent Form Signed Yes CHG Preoperative Wash/Wipe Day of procedure, Site specific wipe Preop Nasal Swab Povidone-Iodine CHG Skin Prep Completed for Eligible Surgery NPO Status Maintained 10/26/2022 5:31 EST clopidogrel 75 mg mg levothyroxine 50 mcg mcg 10/26/2022 5:28 EST Current Weight 91.9 kg Type of Scale Used Standing 10/26/2022 5:22 EST Ambulation Ambulation in [place] Ambulation Distance In Error ft (In Error) Assistive Device None Ambulation Patient Effort Good 10/26/2022 5:00 EST Urine Voided 600 mL 10/26/2022 4:54 EST XR Chest 2 Views XR CHEST 2 VIEWS 10/26/2022 4:34 EST WBC 6.6 10^3/mcL RBC 4.32 10^6/mcL LOW Hgb 12.2 G/dL LOW Hct 37.0 % LOW MCV 85.6 fL MCH 28.1 pg MCHC 32.9 G/dL RDW 14.1 % Platelet 269 10^3/mcL MPV 7.1 fL Neutrophil % 74.9 % Lymphocyte % 10.7 % LOW Monocyte % 11.2 % Eosinophil % 2.5 % Basophil % 0.7 % Neutrophil, Absolute 4.9 10^3/mcL Lymphocyte, Absolute 0.7 10^3/mcL LOW Monocyte, Absolute 0.7 10^3/mcL Eosinophil, Absolute 0.2 10^3/mcL Basophil, Absolute 0.0 10^3/mcL Glucose Level 75 mg/dL LOW Sodium Level 136 mEq/L Potassium Level 3.8 mEq/L Chloride 104 mEq/L CO2 27 mEq/L Electrolyte Balance 5.0 mEq/L BUN 15.0 mg/dL Creatinine Lvl (s) 0.77 mg/dL BUN/Creatinine Ratio 19.5 ratio Calcium Lvl 9.0 mg/dL GFR Non- >60 ml/min/1.73sqm NA GFR >60 ml/min/1.73sqm NA Creatinine Clearance Calc 102.09 mL/min 10/26/2022 4:20 EST pantoprazole 40 mg mg 10/26/2022 4:19 EST Temperature Oral 36.9 DegC Heart Rate Monitored 76 bpm Respiratory Rate 20 br/min Systolic Blood Pressure Non-Invasive 121 mmHg Diastolic Blood Pressure Non-Invasive 82 mmHg Mean Arterial Pressure (NBP) 94 mmHg Reason For Taking VItal Signs Routine Primary Pain Intensity 0 Pain Scale Type 0-10 Pain scale Monitor Alarms On and Limits Checked Nail Bed Color Brandermill Capillary Refill < 2 seconds Heart Sounds ICU [id number] Heart Rhythm Regular Dorsalis Pedis Pulse, Left 2+ Normal Dorsalis Pedis Pulse, Right 2+ Normal Radial Pulse, Left 2+ Normal Radial Pulse, Right 2+ Normal Cardiac Rhythm Sinus rhythm Monitoring Lead II, V1/MCL1 NE Interval 0.15 second(s) QRS Duration 0.12 second(s) QT Interval 0.46 second(s) QTc Interval 0.49 second(s) Alarms On and Functional Yes Heart Rate Alarm Set At - Low 50 Heart Rate Alarm Set At - High 120 Respirations Unlabored Respiratory Pattern Regular Breath Sounds Auscultated Anterior and posterior Left Lower Lobe Breath Sounds Coarse crackles Right Lower Lobe Breath Sounds Coarse crackles All Lobes Breath Sounds Clear Patient Participation in Treatment Cooperative Cough and Deep Breathe Done Cough Non-Productive, Weak Oxygen Saturation 96 % Abdomen Description Non-distended, Soft Abdomen Palpation Non-Tender Passing Flatus Yes Bowel Sounds All Quadrants Present Urinary Elimination Voiding, no difficulties Urine Color Yellow Urine Description Clear Facial Movement Makes facial grimaces, Symmetric resting/crying All Extremity Description Normal for ethnicity Skin Temperature Warm Temperature All Extremities Warm Skin Description Normal for ethnicity Skin Integrity Not intact Skin Turgor Elastic Mucous Membrane Color Brandermill Mucous Membrane Description Moist Sensory Perception Roshan No impairment Moisture Roshan Rarely moist Activity Roshan Walks frequently Mobility Roshan Slightly limited Nutrition Roshan Adequate Friction and Shear Roshan No apparent problem Roshan Score 21 Hospital Acquired Pressure Injury Risk None/minimal risk (score 19-23) Chest Midline Skin Abnormality Type: Surgical incision Incision, Wound Dressing/Activity: Open to air Wound Edge: Approximated Incision, Wound Cleansing: Cleaned with CHG Wound Exudate Amount: Scant Incision, Wound Surrounding Tissue: Normal Wound Status: No complications Wound Associated Pain: With activity, mobilization Abdomen Anterior, Multiple scattered, Other: Old CT Sites Skin Abnormality Type: Procedure site Incision, Wound Dressing/Activity: Changed Incision, Wound Dressing Assessment: Clean, Dry, Intact Incision, Wound Dressing: Gauze dressing Incision, Wound Cleansing: Cleaned with CHG Wound Exudate Amount: Small Incision, Wound Surrounding Tissue: Normal Wound Status: No complications Wound Associated Pain: None Triple Lumen Subclavian vein Left 10/23/2022 Central IV Activity: Assessed Central IV Number of Lumens: Triple Central IV Patency Proximal Port: Flushes easily, No blood return Central IV Patency Distal Port: Flushes easily, No blood return Central IV Patency Medial Port: Flushes easily, Good blood return Central IV Dressing Condition: Clean, Dry, Intact Central IV Dressing / Activity: CHG disk dressing with proper position Central IV Line Care: Alcohol port cap(s) in place Central IV Site Condition: Pain Central IV Equipment: PRN Adaptor Neurological Language Able to speak clearly, Follows simple commands Neurological Symptoms Patient denies Gait Unable to assess Extremity Movement Equal Swallowing Difficulty None Characteristics of Communication Appropriate Characteristics of Speech Clear Facial Symmetry Symmetric Level of Consciousness Alert Aspiration Risk None Eye Opening Response Abundio Spontaneously Best Motor Response Abundio Obeys simple commands Best Verbal Response [place] Oriented [place] Coma Score 15 NILO Yes Left Pupil Description Regular, Round Right Pupil Description Regular, Round Left Pupil Reaction Brisk Right Pupil Reaction Brisk Pupil Size, Left 3 mm Pupil Size, Right 3 mm Strength All Extremities Strong Tone All Extremities Normal Sensation All Extremities Intact Left Upper Extremity Sensation Intact Right Upper Extremity Sensation Intact Left Lower Extremity Sensation Intact Right Lower Extremity Sensation Intact CN VII Facial Expression and Symmetry Facial movement symmetrical CN VIII Hearing Spoken word equally audible left/right CN IX, X Swallowing, Gag Reflex Swallowing present, Gag reflex present Vega Screen Daily History of Fall in Last 3 Months Vega No Presence of Secondary Diagnosis Vega Yes Use of Ambulatory Aid Vega None, bedrest, wheelchair, nurse IV/PRN Adapter Fall Risk Vega Yes Gait Weak or Impaired Fall Risk Vega Normal, bedrest, immobile Mental Status Fall Risk Vega Oriented to own ability Vega Fall Risk Score 35 Violence Risk Confused No Violence Risk Irritable No Violence Risk Boisterous No Violence Risk Verbal Threats No Violence Risk Physical Threats No Violence Risk Attacking Objects No Violence Risk Predictor Score 0 Violence Risk Intervention None Violence Risk Current Interventions None Affect/Behavior Appropriate, Calm, Cooperative Orientation Oriented x 4 Ambulation Ambulation in [place] Ambulation Distance 999 ft BMAT Existing Patient Condition/Safety No order for Strict Bedrest BMAT Level 1: Sit and Shake Sit, side bed/reach midline/shake hands BMAT Level 2: Stretch and Point Seated position, straighten 1 knee; Flex ankle & point toes BMAT Level 3: Stand Stand up w/o assist/Use of assist device BMAT Level 4: Walk March in place; step forward & back each foot BMAT Mobility Level 4 Activity Status ADL Awake, Repositions self, Resting Beds/Devices Hospital bed Activity Assistance Independent Assistive Device None Ambulation Patient Effort Good Time Up in Chair 15 minute(s) SCD Removed/Off bilateral knee high Reason SCD Removed/Off Ambulating in room Standard Safety ID band on, Allergy Band on, Call device within reach, Bed in low position, Wheels locked, Upper/Half-Length side-rails up, Safety level maintained High Risk Safety Room check performed Demonstrates Correct Call Light Use Yes 10/26/2022 2:22 EST Mechanical VTE Prophylaxis Education Not Done: See ICU flow (Not Done) Sequential Compression Device Form Not Done (Not Done) 10/26/2022 1:30 EST Heart Rate Monitored [address] Segment Measurement -0.[address] Segment Measurement -0.[address] Segment Measurement 0.5 mm Activity Status ADL Lights dimmed, Sleeping Standard Safety Security present, Precautions maintained High Risk Safety Room check performed Demonstrates Correct Call Light Use Yes 10/26/2022 0:54 EST Able To Drink Order Detail Yes Able To Sign Consents Order Detail Yes Code Status Order Detail Full code IV Order Detail Yes Dialysis Schedule Order Detail N/A Has Diabetes Order Detail Yes Isolation Precautions Order Detail None Nurse Collect Order Detail 1 Oxygen Order Detail Yes Order Detail N/A Prior Valve Replacement Order Detail No Transport Mode Order Detail MTT with Monitor Cutting Machine Fixer Details Form Cutting Machine Fixer Details Form 10/26/2022 0:21 EST Pain Scale Assessment Behavioral pain scale Primary Pain Location Chest Primary Pain Intensity 3 Primary Pain Nonverbal Response Appears restful Pain Scale Type Behavioral pain scale Reason for PRN medication Pain management PRN medication effectiveness Yes PRN Medication Effectiveness Evaluation PRN Medication Effectiveness Evaluation 10/26/2022 0:06 EST Ed-Recognize Signs,Symptoms Skin Impair Verbalizes/Nonverbally indicates understanding Ed-S/S of Neurovascular Compromise Verbalizes/Nonverbally indicates understanding 10/25/2022 23:48 EST Mechanical VTE Prophylaxis Education Not Done: See ICU flow (Not Done) Sequential Compression Device Form Not Done (Not Done) 10/25/2022 23:24 EST Heart Rate Monitored [address] Segment Measurement -0.[address] Segment Measurement -0.[address] Segment Measurement 0.4 mm Oxygen Therapy Nasal cannula 0L-6L Oxygen Saturation 93 % Oxygen Flow Rate 2 10/25/2022 23:21 EST acetaminophen 650 mg mg 10/25/2022 23:15 EST Heart Rate Monitored 79 bpm Oxygen Therapy Nasal cannula 0L-6L Oxygen Saturation 94 % Oxygen Flow Rate 3 10/25/2022 23:10 EST Heart Rate Monitored 79 bpm Oxygen Therapy Nasal cannula 0L-6L Oxygen Saturation 93 % Oxygen Flow Rate 6 10/25/2022 23:06 EST Heart Rate Monitored 80 bpm Oxygen Therapy Nasal cannula 0L-6L Oxygen Saturation 88 % Oxygen Flow Rate 4 10/25/2022 23:05 EST Temperature Oral 37.4 DegC HI Heart Rate Monitored 80 bpm Respiratory Rate 16 br/min Systolic Blood Pressure Non-Invasive 107 mmHg Diastolic Blood Pressure Non-Invasive 75 mmHg Mean Arterial Pressure (NBP) 86 mmHg Reason For Taking VItal Signs Routine Primary Pain Location Chest Primary Pain Laterality Left Primary Pain Intensity 8 Primary Pain Quality Sharp Primary Pain Pharma Intervention Medication Primary Pain Non-Pharma Intervention Repositioning Primary Pain Aggravating Factors Breathing Primary Pain Nonverbal Response Nods Yes Pain Scale Type 0-10 Pain scale Monitor Alarms On and Limits Checked Nail Bed Color Brandermill Capillary Refill < 2 seconds Heart Sounds ICU S1S2 Heart Rhythm Regular Dorsalis Pedis Pulse, Left 2+ Normal Dorsalis Pedis Pulse, Right 2+ Normal Posttibial Pulse, Left 2+ Normal Posttibial Pulse, Right 2+ Normal Radial Pulse, Left 2+ Normal Radial Pulse, Right 2+ Normal Generalized Edema Rating: None Cardiac Rhythm Sinus rhythm Monitoring Lead II, V1/MCL1 NE Interval 0.17 second(s) QRS Duration 0.08 second(s) QT Interval 0.37 second(s) QTc Interval 0.41 second(s) ST Segment Measurement -0.[address] Segment Measurement [address] Segment Measurement 0.1 mm Alarms On and Functional Yes Heart Rate Alarm Set At - Low 50 Heart Rate Alarm Set At - High 120 Pacemaker Type Epicardial Pacemaker Status Not Connected to Pacer Box Pacemaker Mode Atrial fixed (AOO) Pacemaker # Ventricular Wires 2 Pacemaker Activity Assess Pacemaker Insertion Site Epicardial Pacemaker Crepitus Not present Pacer Insertion Site Condition Clean, Dry Pacemaker Dressing Intact Pacemaker Care Wires Intact, Ends isolated Respirations Unlabored Respiratory Pattern Regular Breath Sounds Auscultated Anterior only Left Lower Lobe Breath Sounds Coarse crackles Right Lower Lobe Breath Sounds Coarse crackles All Lobes Breath Sounds Diminished, detailed lung assessment Patient Participation in Treatment Cooperative Cough and Deep Breathe Done Cough Non-Productive, Occasional Oxygen Therapy Room air Oxygen Saturation 84 % Tracheal Position Midline Abdomen Description Non-distended, Soft Abdomen Palpation Non-Tender Bowel Sounds All Quadrants Present Urinary Elimination Voiding, no difficulties Urine Color Yellow Urine Description Clear Facial Movement Symmetric resting/crying All Extremity Description Normal for ethnicity Skin Temperature Warm Temperature All Extremities Warm Skin Description Normal for ethnicity Skin Integrity Not intact Skin Turgor Elastic Mucous Membrane Color Brandermill Mucous Membrane Description Moist Chest Midline Skin Abnormality Type: Surgical incision Incision, Wound Dressing/Activity: Open to air Wound Edge: Approximated with steri strips Wound Exudate Amount: Scant Wound Exudate Type: Sanguineous Wound Exudate Odor: None Incision, Wound Surrounding Tissue: Normal Wound Status: No complications Abdomen Anterior, Multiple scattered, Other: Old CT Sites Skin Abnormality Type: Procedure site Incision, Wound Dressing/Activity: Assessed Incision, Wound Dressing Assessment: Clean, Dry, Intact Incision, Wound Dressing: Gauze dressing Wound Exudate Amount: None Incision, Wound Surrounding Tissue: Normal Wound Status: No complications Continuous IV Infusions adapted Triple Lumen Subclavian vein Left 10/23/2022 Central IV Activity: Assessed Central IV Number of Lumens: Triple Central IV Patency Proximal Port: Flushes easily Central IV Patency Distal Port: Flushes easily Central IV Patency Medial Port: Flushes easily Central IV Dressing Condition: Clean, Dry, Intact Central IV Dressing / Activity: CHG gel pad all-in-one dressing Central IV Line Care: Alcohol port cap(s) in place Central IV Site Condition: Pain Central IV Equipment: PRN Adaptor Neurological Language Able to speak clearly Neurological Symptoms Patient denies Gait Unable to assess Extremity Movement Equal Swallowing Difficulty None Characteristics of Communication Appropriate Characteristics of Speech Clear Facial Symmetry Symmetric Level of Consciousness Alert Aspiration Risk None NILO Yes Left Pupil Description Regular, Round Right Pupil Description Regular, Round Left Pupil Reaction Brisk Right Pupil Reaction Brisk Pupil Size, Left 3 mm Pupil Size, Right 3 mm Strength All Extremities Strong Tone All Extremities Normal Sensation All Extremities Intact CN V Facial Sensation Corneal reflex present CN VII Facial Expression and Symmetry Facial movement symmetrical CN VIII Hearing Spoken word equally audible left/right CN IX, X Swallowing, Gag Reflex Swallowing present Violence Risk Confused No Violence Risk Irritable No Violence Risk Boisterous No Violence Risk Verbal Threats No Violence Risk Physical Threats No Violence Risk Attacking Objects No Violence Risk Predictor Score 0 Violence Risk Intervention None Violence Risk Current Interventions None Affect/Behavior Appropriate, Calm, Cooperative Orientation Oriented x 4 Orientation Assessment Oriented x 4 Activity Status ADL Lights dimmed, Repositions self, Resting, Sleeps intermittently Beds/Devices Hospital bed Activity Assistance Supervision SCD On/Re-applied bilateral knee high Standard Safety Safety level maintained High Risk Safety Room check performed Demonstrates Correct Call Light Use Yes 10/25/2022 23:00 EST Urine Voided 500 mL 10/25/2022 21:20 EST Ambulation Ambulation in [place] Ambulation Distance 400 ft Assistive Device None Ambulation Patient Effort Good 10/25/2022 21:09 EST Heart Rate Monitored 77 bpm Systolic Blood Pressure Non-Invasive 118 mmHg (Modified) Diastolic Blood Pressure Non-Invasive 64 mmHg (Modified) Mean Arterial Pressure (NBP) 80 mmHg (Modified) Standard Safety Safety level maintained High Risk Safety Room check performed Demonstrates Correct Call Light Use Yes 10/25/2022 21:05 EST atorvastatin 40 mg mg insulin glargine 25 unit(s) unit(s) lisinopril 2.5 mg mg mupirocin topical 1 david david 10/25/2022 21:01 EST Blood Glucose, Capillary 109 mg/dL Blood Glucose Testing Reason Routine 10/25/2022 20:50 EST Pain Scale Assessment Behavioral pain scale Primary Pain Location Chest Primary Pain Intensity 3 Primary Pain Nonverbal Response Appears restful Pain Scale Type Behavioral pain scale Reason for PRN medication Pain management PRN medication effectiveness Yes Supplement Intake 0 mL PRN Medication Effectiveness Evaluation PRN Medication Effectiveness Evaluation 10/25/2022 20:00 EST docusate Not Done: Patient Refused (Not Done) 10/25/2022 19:05 EST Temperature Oral 37.2 DegC Heart Rate Monitored 78 bpm Respiratory Rate 17 br/min Systolic Blood Pressure Non-Invasive 125 mmHg Diastolic Blood Pressure Non-Invasive 81 mmHg Mean Arterial Pressure (NBP) 93 mmHg Reason For Taking VItal Signs Routine Primary Pain Location Chest Primary Pain Laterality Medial Primary Pain Intensity 9 Primary Pain Quality Incisional Primary Pain Pharma Intervention Medication Primary Pain Aggravating Factors Breathing Primary Pain Nonverbal Response Nods Yes Pain Scale Type 0-10 Pain scale Monitor Alarms On and Limits Checked Heart Sounds ICU Pericardial friction rub Heart Rhythm Regular Dorsalis Pedis Pulse, Left 2+ Normal Dorsalis Pedis Pulse, Right 2+ Normal Posttibial Pulse, Left 2+ Normal Posttibial Pulse, Right 2+ Normal Radial Pulse, Left 2+ Normal Radial Pulse, Right 2+ Normal Cardiac Rhythm Sinus rhythm ST Segment Measurement -0.[address] Segment Measurement -0.[address] Segment Measurement 0.5 mm Alarms On and Functional Yes Heart Rate Alarm Set At - Low 50 Heart Rate Alarm Set At - High 120 Pacemaker Type Epicardial Pacemaker Status Not Connected to Pacer Box Pacemaker # Ventricular Wires 2 Pacemaker Activity Assess Pacemaker Insertion Site Epicardial Pacemaker Crepitus Not present Pacer Insertion Site Condition Clean, Dry Pacemaker Dressing Intact Pacemaker Care Wires Intact, Ends isolated Respirations Unlabored Respiratory Pattern Regular Breath Sounds Auscultated Anterior only All Lobes Breath Sounds Clear Cough None Oxygen Therapy Room air Oxygen Saturation 92 % LOW Tracheal Position Midline Urinary Elimination Voiding, no difficulties Chest Midline Skin Abnormality Type: Surgical incision Incision, Wound Dressing/Activity: Open to air Wound Status: No complications Abdomen Anterior, Multiple scattered, Other: Old CT Sites Skin Abnormality Type: Procedure site (Modified) Incision, Wound Dressing/Activity: Assessed Wound Status: No complications Triple Lumen Subclavian vein Left 10/23/2022 Central IV Activity: Assessed Central IV Number of Lumens: Triple Central IV Site Condition: No complications Central IV Equipment: PRN Adaptor Neurological Symptoms Patient denies Level of Consciousness Alert NILO Yes Strength All Extremities Strong Tone All Extremities Normal Sensation All Extremities Intact Affect/Behavior Appropriate, Calm, Cooperative Orientation Oriented x 4 Orientation Assessment Oriented x 4 Individuals Taught Patient Learning Readiness Willing to learn Barriers to Learning None evident Teaching Method Explanation Preferred Spoken Language Icelandic CV Surgery Activity Education Out of bed for all meals, Walking in halls as tolerated, Importance of Phase 1 Cardiac Rehab, Discharge activity expectations CV Surgery Pulmonary Education Coughing and deep breathing exercises, Acapella, Incentive spirometry CV Surgery Incision Care Education Shower, Antibacterial soap, Midsternal incision/dressing care, Leg incision/dressing care, Infection signs/symptoms CV Surgery Postop Complication Education Infection CV Surgery Miscellaneous Education Pain medication CV Surgery Teaching Evaluation Verbalizes/Nonverbally indicates understanding, Demonstrates Activity Status ADL Repositions self, Resting Beds/Devices Hospital bed Activity Assistance Supervision SCD On/Re-applied bilateral knee high Standard Safety Safety level maintained, Precautions maintained High Risk Safety Room check performed Demonstrates Correct Call Light Use Yes 10/25/2022 19:03 EST Primary Pain Intensity 9 Pain Scale Type 0-10 Pain scale traMADol 50 mg mg 10/25/2022 18:46 EST Chest Physiotherapy Flutter valve 10/25/2022 18:30 EST Bowel Movement Last Date 10/25/2022 Stool Description Continent, Medium amount, Soft Bowel Continence Continent Stool Count 1 EA 10/25/2022 18:06 EST sodium biphosphate-sodium phosphate 133 mL mL 10/25/2022 18:00 EST Urine Voided 750 mL 10/25/2022 17:50 EST Post Rehab Outcome Not Done: See ICU flow (Not Done) Mechanical VTE Prophylaxis Education Not Done: See ICU flow (Not Done) Cardiac Rehab - Phase I Not Done (Not Done) Sequential Compression Device Form Not Done (Not Done) 10/25/2022 17:49 EST Able To Drink Order Detail Yes Able To Sign Consents Order Detail Yes Code Status Order Detail Full code IV Order Detail Yes Dialysis Schedule Order Detail N/A Has Diabetes Order Detail Yes Isolation Precautions Order Detail None Nurse Collect Order Detail 1 Oxygen Order Detail Yes Order Detail N/A Prior Valve Replacement Order Detail No Transport Mode Order Detail MTT with Monitor Cutting Machine Fixer Details Form Cutting Machine Fixer Details Form 10/25/2022 17:33 EST Blood Glucose, Capillary 129 mg/dL HI Apical Heart Rate 87 bpm Heart Rate Monitored 86 bpm Systolic Blood Pressure Non-Invasive 120 mmHg Diastolic Blood Pressure Non-Invasive 79 mmHg Mean Arterial Pressure (NBP) 92 mmHg Tolerating Oral Intake Yes Feeding Assistance Independent [facility] 10-26-2022 Note ORIGINAL EXAMINATION: TWO XRAY VIEWS OF THE CHEST 10/26/2022 4:54 am COMPARISON: Chest x-ray on 10/25/2022 HISTORY: ORDERING SYSTEM PROVIDED HISTORY: Reason for Exam: decreased breath sounds FINDINGS: Left subclavian central venous catheter tip is in the superior vena cava. Mediastinal drain and bilateral chest tubes have been removed. There is minimal atelectasis at both lung bases. No pleural fluid or pneumothorax is present. The heart size is at the upper limits of normal. IMPRESSION: Subsegmental atelectasis at both lung bases. Interpreted by: Mahogany Parrish MD Preliminary Report By: Mahogany Parrish MD Electronically signed By Mahogany Parrish MD Dictated Date: 10/26/2022 5:00:32 AM Prelim Date: 10/26/2022 5:01:35 AM Sign Date: 10/26/2022 5:01:35 AM [facility] ORIGINAL EXAMINATION: TWO XRAY VIEWS OF THE CHEST 10/26/2022 4:54 am COMPARISON: Chest x-ray on 10/25/2022 HISTORY: ORDERING SYSTEM PROVIDED HISTORY: Reason for Exam: decreased breath sounds FINDINGS: Left subclavian central venous catheter tip is in the superior vena cava. Mediastinal drain and bilateral chest tubes have been removed. There is minimal atelectasis at both lung bases. No pleural fluid or pneumothorax is present. The heart size is at the upper limits of normal. IMPRESSION: Subsegmental atelectasis at both lung bases. Interpreted by: Mahogany Parrish MD Preliminary Report By: Mahogany Parrish MD Electronically signed By Mahogany Parrish MD Dictated Date: 10/26/2022 5:00:32 AM Prelim Date: 10/26/2022 5:01:35 AM Sign Date: 10/26/2022 5:01:35 AM Ordering Provider: AMOS [facility] 10-25-2022 Note Date of Service 10/25/2022 Chief Complaint POD #2 This is a 67-year-old male with past medical history of coronary artery disease status post balloon angioplasty and stent, hypertension, hyperlipidemia, diabetes, and throat cancer status post chemotherapy and radiation 12 years ago. He was seen by cardiology after experiencing 2 episodes of midsternal chest pain/burning without radiation that occurred with minimal activity. It did go away with time and rest. He denies syncope, PND, or orthopnea. Stress test showed inferior and inferior septal wall infarct with partial reversibility, EF of 50%. Cardiac catheterization noted an EF of 55 to 60%, 80% in-stent recurrent stenosis of the proximal LAD, 95% stenosis of the ostial first diagonal, 85% stenosis of the proximal first diagonal, 90% stenosis of the proximal third obtuse marginal, and 100% chronic total occlusion of the proximal RCA. The patient was seen and examined by Dr. Acosta in the office where he was found to have critical 80 to 99% stenosis of the right internal carotid artery. Patient was seen by vascular surgery (Dr. Viera) preoperatively with plans of undergoing CABG and then proceeding with a right carotid angiogram, possible stenting with Dr. Viera. On October 23, 2022, the patient underwent a single-vessel coronary artery bypass grafting using GUTIERREZ to LAD without use of cardiopulmonary bypass per Dr. Acosta. He tolerated the surgery well and was transferred to cardiovascular ICU in stable condition. Liberated from mechanical ventilator operative day. On nitroprusside drip for blood pressure control. POD #1: Currently on nitroprusside drip at 0.3 mcg/kg/min. We will start Lopressor 50 mg twice daily, lisinopril 2.5 mg twice daily, as needed hydralazine 50 mg every 6 hours as needed systolic blood pressure greater than 170 mmHg. May transfer to stepdown unit once weaned off of nitroprusside drip. [1] POD #2: Scheduled to undergo right carotid angiogram and possible stenting with Dr. Viera tomorrow 10/26/2022. Discontinue chest tubes. Start Lasix 20 mg daily. Subjective Patient sitting up in bed. Reports tolerable midsternal chest incisional discomfort. Denies any shortness of breath. Objective Vitals and Measurements T: 36.5 C (Oral) TMIN: 36.5 C (Oral) TMAX: 37.1 C (Oral) HR: 79(Monitored) RR: 16 BP: 134/85 BP: 114/63(Line) SpO2: 94% WT: 92.4 kg Intake and Output 7AM Yesterday to 7AM Today Intake and Output (Last 24 hours) Intake Oral Intake 1320.00 Output Chest Tube Output: 620.00 Urine Voided 1550.00 Urinary Catheter Output: 345.00 Stool Count 0.00 Total Summary Total Intake 1320.00 Total Output 2515.00 Fluid Balance -1195.00 Physical Exam Constitutional: Alert, oriented, appropriate HEENT: Normocephalic, atraumatic Lungs: Unlabored respirations, lung sounds clear and diminished in bilateral bases, SPO2 92 to 94% on room air Heart: Normal sinus rhythm, S1-S2, no murmur or rub, heart rate ranging 70-75, temporary V pacer wire intact, left-sided chest tubes drained 360 cc of serosanguineous drainage over the last 24 hours and 60 cc over last 8 hours, bilateral right pleural chest tubes drained 300 cc over last 24 hours and 60 cc over last 8 hours Abdomen: Soft, nontender, bowel sounds present, positive flatus, no bowel movement Extremities: Well perfused, pedal pulses +2 bilaterally, no lower leg edema Integumentary: Midline sternal incision open to air, edges well approximated, Steri-Strips intact, no drainage Neuro: Alert, oriented x4, appropriate, moves all 4 extremities equally, slight drooping of right eye and right middle (patient reports history of cerebral palsy and this is his baseline) Central venous access: Left subclavian triple-lumen Disposition: Home with spouse Weight Current Weight Dosing Weight: 92 kg (10/23/22) Current Weight: 92.4 kg (10/25/22) Current Weight: 93.4 kg (10/24/22) Medications Medications (33) Active Scheduled: (15) aspirin 81 mg EC 81 mg 1 tab(s), Oral, qDayM atorvastatin 40 mg tablet 40 mg 1 tab(s), Oral, qDay bisacodyl 10 mg Suppository 10 mg 1 supp, Rectal, Once calcium carbonate 500 mg Chewable 500 mg 1 tab(s), Oral, qAM docusate calcium 240 mg Capsule 240 mg 1 cap(s), Oral, BID enoxaparin 40 mg/ 0.4mL syringe 40 mg 0.4 mL, Subcutaneous, qDay insulin glargine 35 unit(s) 0.35 mL, Subcutaneous (INT), BID insulin lispro 100 units/mL Soln (3 mL) 6 unit(s) 0.06 mL, Subcutaneous, TIDAC insulin lispro 100 units/mL Soln (3 mL) Give 2-18 units/dose, Subcutaneous, achs2 lisinopril 2.5 mg tablet 2.5 mg 1 tab(s), Oral, BID metoprolol tartrate 50 mg tablet 50 mg 1 tab(s), Oral, BIDM multivitamin (Chromagen Forte) with iron Vitamin B Complex with C, Folic Acid and Iron tablet 1 tab(s), Oral, qDay mupirocin 2% Ointment 22 Gram(s) tube 1 david, Nostril, each, BID pantoprazole 40 mg EC tablet 40 mg 1 tab(s), Oral, qDayAC sodium biphosphate-sodium phosphate 19 gm-7 gm Enema 133 mL, Rectal, Once Continuous: (1) insulin regular 100 unit(s) + NS Premix Diluent 100 mL 100 mL, Intravenous PRN: (17) acetaminophen 325 mg Tablet 650 mg 2 tab(s), Oral, q4h Al hydrox/Mg hydrox/simethicone 200-200-20 mg/5 mL Susp UD 30 mL, Oral, q2h bisacodyl 10 mg Suppository 10 mg 1 supp, Rectal, qDay bismuth subsalicylate 262 mg/15 mL 240 mL 30 mL, Oral, AsDirected dextrose 50% Solution Disp syringe 50 mL 25 g 50 mL, IV Push, AsDirected dextrose 50% Solution Disp syringe 50 mL 12.5 g 25 mL, IV Push, AsDirected glucagon recombinant 1 mg 1 mg 1 mL, Intramuscular, AsDirected hydralazine 50 mg Tablet 50 mg 1 tab(s), Oral, q6h insulin regular human recombinant 100 units/mL (3 mL) Soln 10 unit(s) 0.1 mL, IV Push, q1h magnesium hydroxide 8% Suspension 30 mL UD 30 mL, Oral, qDay ondansetron 2 mg/ 1 mL 2 mL INJ 4 mg 2 mL, IV Push, q4h phenol topical 1.4% Spr 1 spray(s), Topical, q1h polyethylene glycol 3350 - UD packet 17 gram(s) 15 mL, Oral, qDay potassium chloride (PMX) 20 mEq 50 mL, IV Piggyback, AsDirected potassium chloride (PMX) 15 mEq 50 mL, IV Piggyback, AsDirected tramadol 50 mg Tablet 50 mg 1 tab(s), Oral, q4h tramadol 50 mg Tablet 25 mg 0.5 tab(s), Oral, q4h Lab Results 10/25 07:11 Potassium Level: 4.2 10/25 04:07 WBC: 8.5 Hgb: 12.1 L Hct: 36.1 L Platelet: 250 Neutrophil %: 80.7 H Glucose Level: 117 H Sodium Level: 132 L Potassium Level: 3.7 BUN: 15.0 Creatinine Lvl (s): 0.76 10/24 15:03 Potassium Level: 4.0 10/24 03:54 WBC: 9.9 Hgb: 11.8 L Hct: 35.2 L Platelet: 271 Neutrophil %: 85.2 H Glucose Level: 106 Sodium Level: 136 Potassium Level: 4.0 BUN: 12.0 Creatinine Lvl (s): 0.60 10/24 02:06 Potassium Level: 4.1 10/23 21:32 Potassium Level: 3.9 Imaging Results and Diagnostics XR Chest 1 View Result Date: October 25, 2022 Verified By: WONG HAJI, MAHOGANY [facility] CLINICAL STATEMENT: IMPRESSION: Improved expansion of both lungs with mild left basilar atelectasis and small left pleural effusion remaining. EKG Electrocardiogram - Ordered -- 10/27/22 6:00:00 EST, On the 4th post op day Assessment/Plan 1. CAD IN MORONGO ARTERY (CORONARY ARTERY DISEASE) (Renamed from CAD (CORONARY ARTERY DISEASE), MORONGO CORONARY ARTERY) S/P CABG x1 GUTIERREZ to LAD off pump 10/23/2022 EF 61% Normal sinus rhythm. Heart rate ranging 70-75. Blood pressures ranging 123/77-136/93. On aspirin, metoprolol, atorvastatin. Left-sided chest tubes drained 360 cc over last 24 hours and 60 cc over the last 8 hours. Right-sided chest tubes drained 300 cc over last 24 hours and 60 cc over last 8 hours. 2. DIABETES MELLITUS (Renamed from DIABETES) HgbA1C 12 Followed by [facility] endocrinology. Glucoses ranging 84 to 128. On Humalog sliding scale insulin, Lantus 3. HYPERLIPIDEMIA (Renamed from HLD (HYPERLIPIDEMIA)) On atorvastatin. Patient was previously taking simvastatin at home 4. HYPERTENSION, UNSPECIFIED (Renamed from ESSENTIAL (PRIMARY) HYPERTENSION) Blood pressures ranging 123/77-136/93. On metoprolol and lisinopril and as needed hydralazine for systolic blood pressure greater than 170 mmHg. 5. HISTORY OF THROAT CANCER S/P chemo and radiation 6. Carotid stenosis, right Carotid ultrasound from 08/27/2022 revealed critical 80 to 99% stenosis of the right internal carotid artery. Patient had previously been seen by Dr. Short preoperatively with plans of undergoing a right carotid angiogram, possible stenting on 10/26/2022. 7. History of cerebral palsy Slight droop of right eye and right mouth. Patient states that this is his baseline due to history of cerebral palsy. Plan: Dulcolax suppository and fleets enema for bowel movement DC chest tubes Lasix 20 mg daily, KCl 20 mEq twice daily NPO at midnight for OR with Dr. Viera tomorrow. Continue to encourage ambulation and pulmonary toileting CBC, BMP, chest x-ray in a.m. Patient seen and discussed with Dr. Acosta This note was generated using a voice recognition system. As a result, errors are possible and common, including incorrect words, spellings, grammar, gender, phrases, and punctuation that may be out of context or that were missed in checking this note before saving. Reasonable effort is made to correct such errors, but with demands of normal work flow, many are missed. [1] Progress Note; AMOS ALVARADO 10/24/2022 07:56 EST Digitally Signed by AMOS ALVARADO on 10/25/2022 10:21 AM [facility] 10-25-2022 Note ORIGINAL EXAMINATION: ONE XRAY VIEW OF THE CHEST 10/25/2022 6:17 am COMPARISON: Chest x-ray on 10/24/2022 HISTORY: ORDERING SYSTEM PROVIDED HISTORY: Reason for Exam: pleural effusions FINDINGS: Left subclavian central venous catheter tip is in the superior vena cava. Mediastinal drain and bilateral chest tubes are in place. There is improved expansion of both lungs with only minimal left basilar atelectasis remaining. A small left pleural effusion is present. There is no visible pneumothorax. IMPRESSION: Improved expansion of both lungs with mild left basilar atelectasis and small left pleural effusion remaining. Interpreted by: Mahogany Parrish MD Preliminary Report By: Mahogany Parrish MD Electronically signed By Mahogany Parrish MD Dictated Date: 10/25/2022 6:20:24 AM Prelim Date: 10/25/2022 6:22:02 AM Sign Date: 10/25/2022 6:22:02 AM Ordering Provider: [facility] 10-25-2022 Note ORIGINAL EXAMINATION: ONE XRAY VIEW OF THE CHEST 10/25/2022 6:17 am COMPARISON: Chest x-ray on 10/24/2022 HISTORY: ORDERING SYSTEM PROVIDED HISTORY: Reason for Exam: pleural effusions FINDINGS: Left subclavian central venous catheter tip is in the superior vena cava. Mediastinal drain and bilateral chest tubes are in place. There is improved expansion of both lungs with only minimal left basilar atelectasis remaining. A small left pleural effusion is present. There is no visible pneumothorax. IMPRESSION: Improved expansion of both lungs with mild left basilar atelectasis and small left pleural effusion remaining. Interpreted by: Mahogany Parrish MD Preliminary Report By: Mahogany Parrish MD Electronically signed By Mahogany Parrish MD Dictated Date: 10/25/2022 6:20:24 AM Prelim Date: 10/25/2022 6:22:02 AM Sign Date: 10/25/2022 6:22:02 AM Ordering Provider: [facility] 10-24-2022 Note ORIGINAL EXAMINATION: ONE XRAY VIEW OF THE CHEST10/24/2022 6:18 am COMPARISON: 10/23/2022 HISTORY: ORDERING SYSTEM PROVIDED HISTORY: Reason for Exam: abnormal breath sounds FINDINGS: The exam is compromised by rotation. The heart and mediastinal contours are prominent but may be exaggerated by the technique. Left subclavian catheter terminates at the upper SVC level. Bilateral chest tubes noted. No visible pneumothorax. Small pleural effusions suspected. Mild bibasilar atelectasis noted. No aggressive osseous lesions identified.Sternotomy wires appear intact. Degenerative changes seen of the shoulders and spine. IMPRESSION: Allowing for the significant difference in rotation, there is no significant change in the lung aeration Interpreted by: Jeb Cordero MD Preliminary Report By: Jeb Cordero MD Electronically signed By Jeb Cordero MD Dictated Date: 10/24/2022 8:19:19 AM Prelim Date: 10/24/2022 8:20:24 AM Sign Date: 10/24/2022 8:20:24 AM Ordering Provider: NASIM [facility] 10-24-2022 Note Date of Service 10/24/2022 Chief Complaint POD #1 This is a 67-year-old male with past medical history of coronary artery disease status post balloon angioplasty and stent, hypertension, hyperlipidemia, diabetes, and throat cancer status post chemotherapy and radiation 12 years ago. He was seen by cardiology after experiencing 2 episodes of midsternal chest pain/burning without radiation that occurred with minimal activity. It did go away with time and rest. He denies syncope, PND, or orthopnea. Stress test showed inferior and inferior septal wall infarct with partial reversibility, EF of 50%. Cardiac catheterization noted an EF of 55 to 60%, 80% in-stent recurrent stenosis of the proximal LAD, 95% stenosis of the ostial first diagonal, 85% stenosis of the proximal first diagonal, 90% stenosis of the proximal third obtuse marginal, and 100% chronic total occlusion of the proximal RCA. The patient was seen and examined by Dr. Acosta in the office where he was found to have critical 80 to 99% stenosis of the right internal carotid artery. Patient was seen by vascular surgery (Dr. Viera) preoperatively with plans of undergoing CABG and then proceeding with a right carotid angiogram, possible stenting with Dr. Viera. On October 23, 2022, the patient underwent a single-vessel coronary artery bypass grafting using GUTIERREZ to LAD without use of cardiopulmonary bypass per Dr. Acosta. He tolerated the surgery well and was transferred to cardiovascular ICU in stable condition. Liberated from mechanical ventilator operative day. On nitroprusside drip for blood pressure control. POD #1: Currently on nitroprusside drip at 0.3 mcg/kg/min. We will start Lopressor 50 mg twice daily, lisinopril 2.5 mg twice daily, as needed hydralazine 50 mg every 6 hours as needed systolic blood pressure greater than 170 mmHg. May transfer to stepdown unit once weaned off of nitroprusside drip. Subjective Patient resting comfortably in bed. Reports midsternal incisional chest discomfort. Denies any shortness of breath. Objective Vitals and Measurements T: 37.1 C (Oral) TMIN: 34.93 C TMAX: 37.2 C (Oral) HR: 88(Monitored) RR: 16 BP: 159/94 BP: 126/115(Line) SpO2: 91% HT: 184 cm WT: 92 kg BMI: 27.17 Intake and Output 7AM Yesterday to 7AM Today Intake and Output (Last 24 hours) Intake Other Intake 128.00 Administration Information 2476.43 Oral Intake 360.00 Output Chest Tube Output: 680.00 Urinary Catheter Output: 2945.00 Intra-Op EBL 100.00 Intra-Op Urine Catheter 650.00 Total Summary Total Intake 2964.43 Total Output 4375.00 Fluid Balance -1410.57 Physical Exam Constitutional: Alert, oriented, appropriate HEENT: Normocephalic, atraumatic Lungs: Unlabored respirations, lung sounds clear bilaterally, SPO2 90 to 95% on 1 L nasal cannula Heart: Normal sinus rhythm, S1-S2, no murmur, positive pericardial friction rub, heart rate ranging 80 to 92, temporary A and V pacer wires intact, Left pleural and left mediastinal chest tube to -20 cm suction draining serosanguineous drainage (output 320 cc over last 24 hours and 100 cc over last 8 hours), right pleural and right mediastinal chest tube to -20 cm suction draining serosanguineous drainage (output 360 cc over last 24 hours and 120 cc over last 8 hours) Abdomen: Soft, nontender, bowel sounds present, no flatus, no bowel movement : Indwelling Blackmon catheter in place draining clear yellow urine (output 2945 cc over last 24 hours and 720 cc over last 8 hours) Extremities: Well perfused, pedal pulses +1 bilaterally, no lower leg edema Integumentary: Midline sternal incision dressed with Aquacel dressing and intact Neuro: Alert, oriented x4, appropriate, equal strength x4 Central venous access: Left subclavian triple-lumen, right brachial arterial line Disposition: Home with spouse Weight Dosing Weight: 92 kg (10/23/22) Medications Medications (27) Active Scheduled: (4) aspirin 81 mg EC 81 mg 1 tab(s), Oral, qDayM ceFAZolin syringe 2 gram(s) 20 mL, IV Push (INT), q8hr mupirocin 2% Ointment 22 Gram(s) tube 1 david, Nostril, each, q12h pantoprazole 40 mg VIAL 40 mg, IV Push, qDayAC Continuous: (8) Dextrose 5% with 0.45% NACL 1,000 mL 1,000 mL, Intravenous, 20 mL/hr epinephrine 4 mg [2 mcg/min] + Sodium Chloride 0.9% 250 mL 250 mL, Intravenous, 7.5 mL/hr insulin regular 100 unit(s) + NS Premix Diluent 100 mL 100 mL, Intravenous lidocaine 2 g/250 mL 2 gram(s) [2 mg/min] + Dextrose 5% Premix Diluent 250 mL 250 mL, Intravenous, 15 mL/hr nitroprusside 50 mg [0.2 mcg/kg/min] + NS Premix Diluent 100 mL 100 mL, Intravenous, 2.22 mL/hr norepinephrine 8 mg [2 mcg/min] + NS Premix Diluent 250 mL 250 mL, Intravenous, 3.75 mL/hr NS (0.9% nacl) 1,000 mL 1,000 mL, Intravenous, 20 mL/hr NS (0.9% nacl) 500 mL 500 mL, Intravenous, 20 mL/hr PRN: (15) acetaminophen 325 mg Tablet 650 mg 2 tab(s), Oral, q4h dextrose 50% Solution Disp syringe 50 mL 25 g 50 mL, IV Push, AsDirected insulin regular human recombinant 100 units/mL (3 mL) Soln 10 unit(s) 0.1 mL, IV Push, q1h magnesium sulfate 4g/50mL PMX 4 g 50 mL, IV Piggyback, AsDirected morphine 2 mg/mL 1 mL syringe 2 mg 1 mL, IV Push, q3h morphine 2 mg/mL 1 mL syringe 5 mg 2.5 mL, IV Push, q3h nitroglycerin 100 mcg/1 mL 10 mL VIAL 100 mcg 1 mL, IV Push, AsDirected ondansetron 2 mg/ 1 mL 2 mL INJ 4 mg 2 mL, IV Push, q4h oxycodone 5 mg tablet (immediate release) 5 mg 1 tab(s), Oral, q4h oxycodone 5 mg tablet (immediate release) 10 mg 2 tab(s), Oral, q4h potassium chloride (PMX) 20 mEq 50 mL, IV Piggyback, AsDirected potassium chloride (PMX) 15 mEq 50 mL, IV Piggyback, AsDirected potassium chloride (PMX) 10 mEq 50 mL, IV Piggyback, AsDirected protamine 10 mg/mL (50 mg/5 mL) vial 50 mg 5 mL, IV Push, Once sodium phosphate 30 mmol 10 mL, IV Piggyback, AsDirected Lab Results 10/24 03:54 WBC: 9.9 Hgb: 11.8 L Hct: 35.2 L Platelet: 271 Neutrophil %: 85.2 H Glucose Level: 106 Sodium Level: 136 Potassium Level: 4.0 BUN: 12.0 Creatinine Lvl (s): 0.60 10/24 02:06 Potassium Level: 4.1 10/23 21:32 Potassium Level: 3.9 10/23 18:02 Potassium Level: 3.6 10/23 15:37 Hgb: 12.5 L Hct: 37.0 L Potassium Level: 2.9 L 10/23 10:16 WBC: 5.3 Hgb: 12.7 L Hct: 38.1 L Platelet: 261 Platelet: 252 Neutrophil %: 76.4 H Protime: 12.6 PT International Ratio: 1.1 Glucose Level: 222 H Sodium Level: 140 Potassium Level: 4.5 BUN: 20.0 Creatinine Lvl (s): 0.68 10/23 06:03 Platelet: 335 Protime: 10.8 PT International Ratio: 0.9 Potassium Level: 4.1 Imaging Results and Diagnostics XR Chest 1 View Result Date: October 24, 2022 Verified By: THAI HAJI, JEB Shaffer CLINICAL STATEMENT: IMPRESSION: Allowing for the significant difference in rotation, there is no significant change in the lung aeration EKG No qualifying data available. Assessment/Plan 1. CAD IN MORONGO ARTERY (CORONARY ARTERY DISEASE) (Renamed from CAD (CORONARY ARTERY DISEASE), MORONGO CORONARY ARTERY) S/P CABG x1 GUTIERREZ to LAD off pump 10/23/2022 EF 61% Normal sinus rhythm. Heart rate ranging 80-92. Blood pressures ranging 118/67-145/83. Currently on nitroprusside drip at 0.3 mcg/kg/min. On aspirin. 2. DIABETES MELLITUS (Renamed from DIABETES) HgbA1C 12 Followed by [facility] inpatient endocrinology. Glucoses ranging 97-206. Currently on insulin drip at 4 units/h. 3. HYPERLIPIDEMIA (Renamed from HLD (HYPERLIPIDEMIA)) On atorvastatin. Patient was previously on simvastatin at home. 4. HYPERTENSION, UNSPECIFIED (Renamed from ESSENTIAL (PRIMARY) HYPERTENSION) Blood pressures ranging 118/67-140 . Currently on nitroprusside drip at 0.3 mcg/kg/min.Patient takes lisinopril, metoprolol, isosorbide at home. 5. HISTORY OF THROAT CANCER S/P chemo and radiation 6. Carotid stenosis, right Carotid ultrasound from 08/27/2022 revealed critical 80 to 99% stenosis of the right internal carotid artery. Patient had previously been seen by Dr. Viera preoperatively with plans of undergoing a right carotid angiogram, possible stenting on 10/26/2022. Plan: IV Tylenol and Toradol as well as as needed tramadol Metoprolol tartrate 50 mg twice daily Lisinopril 2.5 mg twice daily As needed hydralazine 50 mg every 6 hours as needed systolic blood pressure greater than 170 mm Elan, may repeat in 30 minutes x 1 Ambulation and pulmonary toileting once off of nitroprusside drip Transfer to stepdown unit once weaned off of nitroprusside drip Labs and chest x-ray in a.m. Patient seen and discussed with Dr. Acosta This note was generated using a voice recognition system. As a result, errors are possible and common, including incorrect words, spellings, grammar, gender, phrases, and punctuation that may be out of context or that were missed in checking this note before saving. Reasonable effort is made to correct such errors, but with demands of normal work flow, many are missed. Digitally Signed by AMOS ALVARADO on 10/24/2022 10:31 AM [facility] 10-24-2022 Note ORIGINAL EXAMINATION: ONE XRAY VIEW OF THE CHEST10/24/2022 6:18 am COMPARISON: 10/23/2022 HISTORY: ORDERING SYSTEM PROVIDED HISTORY: Reason for Exam: abnormal breath sounds FINDINGS: The exam is compromised by rotation. The heart and mediastinal contours are prominent but may be exaggerated by the technique. Left subclavian catheter terminates at the upper SVC level. Bilateral chest tubes noted. No visible pneumothorax. Small pleural effusions suspected. Mild bibasilar atelectasis noted. No aggressive osseous lesions identified.Sternotomy wires appear intact. Degenerative changes seen of the shoulders and spine. IMPRESSION: Allowing for the significant difference in rotation, there is no significant change in the lung aeration Interpreted by: Jeb Cordero MD Preliminary Report By: Jeb Cordero MD Electronically signed By Jeb Cordero MD Dictated Date: 10/24/2022 8:19:19 AM Prelim Date: 10/24/2022 8:20:24 AM Sign Date: 10/24/2022 8:20:24 AM Ordering Provider: NASIM ACOSTA [facility] 10-23-2022 Endocrinology Consult note Date of Service 10/23/22 Reason for Consultation DM Management; Uncontrolled Type 2 Referring Physician Susie Galan APRN History of Present Illness This is a 67-year-old male with significant past medical history of type 2 diabetes, carotid stenosis, CAD, hypertension, hyperlipidemia, who has been following cardiothoracic surgery outpatient following abnormal heart cath in June that revealed critical in-stent stenosis. Presented through same-day surgery for CABG x1 off-pump with Dr. Acosta 10/23/2022. Requiring insulin drip protocol postop. Also with uncontrolled type II prompting endocrine consult. Blood sugar trends, chart reviewed This is a 67-year-old male. Still intubated at time of exam. Admission med rec shows use of metformin 1 g twice daily, Starlix 120mg 3 times daily, Jardiance 25 daily and glimepiride 8 mg every morning. These were all confirmed on external fill history and showing his recently filled. A1c reviewed, 12%. Appears to be PCP managed. He has not seen our service previously. [facility] records reviewed with no previous A1c on file. Notably the patient does have abnormal TSH recorded at 6.392 on preop testing. Does not appear to have any documentation of thyroid disease or treatment for the same that I can find in the record. We will need to follow-up regarding potential symptoms of the same once he is extubated. Seen today in the cardiovascular ICU, discussed plan of care with bedside RN. They plan for ABG, potentially extubation based upon the same. Patient continues on sedation and lidocaine as well as TXA for now. Insulin to currently he is at 8 units/h Review of Systems Unable to assess Physical Exam Vitals and Measurements T: 35.2 C (Intravascular) TMIN: 34.9 C (Bladder) TMAX: 36.4 C (Oral) HR: 72(Monitored) RR: 14 BP: 98/67 BP: 102/66(Line) SpO2: 99% HT: 184 cm WT: 92 kg BMI: 27.17 Weight Dosing Weight: 92 kg (10/23/22) Constitutional: Sedated. No acute distress. HEENT: Normocephalic. Atraumatic. Endo: No goiter. Lungs: Intubated. Respirations are unlabored. FiO2 40% Abdomen: Soft, non-distended. Neurological: Sedated; unable to assess Skin: Warm and dry. No diaphoresis, cyanosis or rashes. No foot ulcers. Psychiatric: Unable to assess. Lab Results 10/23 10:16 WBC: 5.3 Hgb: 12.7 L Hct: 38.1 L Platelet: 252 Platelet: 261 Neutrophil %: 76.4 H Protime: 12.6 PT International Ratio: 1.1 Glucose Level: 222 H Sodium Level: 140 Potassium Level: 4.5 BUN: 20.0 Creatinine Lvl (s): 0.68 10/23 06:03 Platelet: 335 Protime: 10.8 PT International Ratio: 0.9 Potassium Level: 4.1 Assessment/Plan 1. CAD IN MORONGO ARTERY (CORONARY ARTERY DISEASE) (Renamed from CAD (CORONARY ARTERY DISEASE), MORONGO CORONARY ARTERY) S/P CABG x1 GUTIERREZ to LAD off pump 10/23/2022 EF 61% 2. DIABETES MELLITUS (Renamed from DIABETES) HgbA1C 12 3. HYPERLIPIDEMIA (Renamed from HLD (HYPERLIPIDEMIA)) 4. HYPERTENSION, UNSPECIFIED (Renamed from ESSENTIAL (PRIMARY) HYPERTENSION) 5. HISTORY OF THROAT CANCER S/P chemo and radiation This is a 67-year-old male with significant past medical history of type 2 diabetes, carotid stenosis, CAD, hypertension, hyperlipidemia, who has been following cardiothoracic surgery outpatient following abnormal heart cath in June that revealed critical in-stent stenosis. Presented through same-day surgery for CABG x1 off-pump with Dr. Acosta 10/23/2022. Requiring insulin drip protocol postop. Also with uncontrolled type II prompting endocrine consult. Type II diabetic, uncontrolled. Home use of metformin 1 g twice daily, Starlix 120mg 3 times daily, Jardiance 25 daily and glimepiride 8 mg every morning. Fill history appears appropriate. Will need to confirm medication compliance. Will need to discussed A1c goals and potential for future complications with uncontrolled diabetes. Goal A1c is closer to 7% considering his comorbidities and age. Further discussion on the same when he is extubated. TSH screened high 6.392. We will need to repeat with free T3 free T4 and antibodies. This likely be altered if drawn tomorrow due to sx today, will wait 48 hours and retest. Treatment considerations upon repeat testing. He is overweight with BMI, would benefit from education consults including diabetic Ed and dietitian once he is extubated and his clinical status is stabilized. Clear diet in place, just to ADA clears when his diet advances and he is cleared postextubation. Check lipid panel Initial presenting glucose was 281 this morning fasting the day of surgery. Improved with insulin drip down to 115 at this time. Continue insulin drip protocol for now as is being done. Needs can be reassessed for transition off the same tomorrow. Will review in evening rounds w/ Dr. Thompson Thank you for this consult, we will continue to follow while inpatient. Problem List/Past Medical History Ongoing ABNORMAL NUCLEAR STRESS TEST (Renamed from ABNORMAL CLINICAL FINDING) CAD IN MORONGO ARTERY (CORONARY ARTERY DISEASE) (Renamed from CAD (CORONARY ARTERY DISEASE), MORONGO CORONARY ARTERY) Cardiac catheterization Carotid stenosis DIABETES MELLITUS (Renamed from DIABETES) HISTORY OF THROAT CANCER HYPERLIPIDEMIA (Renamed from HLD (HYPERLIPIDEMIA)) HYPERTENSION, UNSPECIFIED (Renamed from ESSENTIAL (PRIMARY) HYPERTENSION) INCREASED BMI (Renamed from OVERWEIGHT) Preoperative clearance Historical NUMBNESS AND TINGLING IN LEFT ARM Procedure/Surgical History Cardiac catheterization: 07/14/22 Stress testing using pharmacologic-induced stress: 06/17/22 Miscellaneous: 03/2021 Stent: 08/04/13 Coronary angioplasty: 08/04/13 TURP - Transurethral resection of prostate Tonsillectomy and adenoidectomy Medications Inpatient albumin human 5% intravenous solution, 12.5 gram(s)= 250 mL, IV Piggyback (MED), AsDirected, PRN aspirin 81 mg oral delayed release tablet, 81 mg= 1 tab(s), Oral, qDayM ceFAZolin, 2 gram(s)= 20 mL, IV Push (INT), q8hr Dexmedetomidine for IV 400 mcg [0.2 mcg/kg/hr] + sodium chloride 0.9% IV solution (T) 96 mL Dextrose 5% with 0.45% NaCl intravenous solution 1,000 mL, 1000 mL, Intravenous epinephrine for IV 4 mg [2 mcg/min] + sodium chloride 0.9% IV solution (T) 250 mL fentaNYL, 25 mcg= 0.5 mL, IV Push, q15min, PRN glucose, 25 gram(s)= 50 mL, IV Push, AsDirected, PRN Insulin Regular for IV 100 unit(s) + NS Premix Diluent 100 mL insulin regular human recombinant 100 units/mL injectable solution, 10 unit(s)= 0.1 mL, IV Push, q1h, PRN Lidocaine for IV 2 gram(s) [2 mg/min] + Dextrose Premix titrate 250 mL magnesium sulfate, 4 gram(s)= 50 mL, IV Piggyback, AsDirected, PRN mupirocin 2% topical ointment, 1 david, Nostril, each, q12h Nitroglycerin 100 mcg/mL injection, 100 mcg= 1 mL, IV Push, AsDirected, PRN nitroprusside for IV 50 mg [0.2 mcg/kg/min] + NS PMX titrate 100 mL Norepinephrine for IV 8 mg [2 mcg/min] + NS PMX titrate 250 mL ocular lubricant ophthalmic oint, 1 david, Eyes, both, q8h ocular lubricant ophthalmic oint, 1 david, Eyes, both, AsDirected, PRN ocular lubricant ophthalmic soln, 1 drop(s), Eyes, both, q8h ocular lubricant ophthalmic soln, 1 drop(s), Eyes, both, AsDirected, PRN Ofirmev IVPB, 1000 mg= 100 mL, IV Piggyback, q6hr ondansetron, 4 mg= 2 mL, IV Push, q4h, PRN pantoprazole IV Push, 40 mg, IV Push, qDayAC Peridex 0.12% oral rinse liquid, 15 mL, Swish & Spit, QID potassium chloride bolus, 20 mEq= 50 mL, IV Piggyback, AsDirected, PRN potassium chloride bolus, 15 mEq= 50 mL, IV Piggyback, AsDirected, PRN potassium chloride bolus, 10 mEq= 50 mL, IV Piggyback, AsDirected, PRN Propofol for IV 1,000 mg [10 mcg/kg/min] + IV Premix Diluent titrate 100 mL protamine, 50 mg= 5 mL, IV Push, Once, PRN Sodium Chloride 0.9% intravenous solution 1,000 mL, 1000 mL, Intravenous Sodium Chloride 0.9% intravenous solution 500 mL, 500 mL, Intravenous Sodium Phosphate for IVPB Bolus Home Amaryl 4 mg oral tablet, 8 mg= 2 tab(s), Oral, qAM Aspir-Low 81 mg oral delayed release tablet, 81 mg= 1 tab(s), Oral, qAM calcium (as carbonate) 600 mg oral tablet, 600 mg= 1 tab(s), Oral, qAM Cinnamon 1000 mg capsule, 2 cap(s), Oral, qAM isosorbide mononitrate 60 mg oral tablet, extended release, 60 mg= 1 tab(s), Oral, qAM Jardiance 25 mg oral tablet, 25 mg= 1 tab(s), Oral, qAM lisinopril 10 mg oral tablet, 10 mg= 1 tab(s), Oral, qAM magnesium glycinate 200 mg oral tablet, 400 mg= 2 tab(s), Oral, qAM metFORMIN 1000 mg oral tablet, 1000 mg= 1 tab(s), Oral, BIDM metoprolol tartrate 100 mg oral tablet, 100 mg= 1 tab(s), Oral, qAM, 10 refills Misc Medication, 1 tab(s), Oral, qAM nateglinide 120 mg oral tablet, 120 mg= 1 tab(s), Oral, TIDAC nitroglycerin 0.4 mg sublingual spray, 0.4 mg= 1 spray(s), Sublingual, q5min, PRN simvastatin 80 mg oral tablet (NF), 80 mg= 1 tab(s), Oral, qHS Ultra Darek Krill Oil 500 mg oral capsule, 500 mg= 1 cap(s), Oral, BID Allergies NKA Social History Smoking Status - 08/04/2013 Former smoker Alcohol Use: Never., 01/09/2020 Employment/School Status: Employed., 02/17/2021 Home/Environment Domestic Concerns: None. Safe place to go: Yes. Current Home Treatments None. Professional Skilled Services or Special Community Resources None. Marital Status: ., 10/23/2022 Nutrition/Health Caffeine intake amount: tea - 1/2 gallon/day., 01/09/2020 Substance Abuse Use: Never., 01/09/2020 Tobacco Nicotine Use: Former smoker, quit more than 30 days ago., 01/09/2020 Family History Diabetes: Father and Brother. Heart attack: Mother. Heart disease: Mother. Immunizations SARS-CoV-2 mRNA (tozinameran) vaccine: 0.3 unknown unit (09/28/21) SARS-CoV-2 mRNA (tozinameran) vaccine: 0 unknown unit (02/10/21) SARS-CoV-2 mRNA (tozinameran) vaccine: 0 unknown unit (01/16/21) Digitally Signed by NASRA PICKENS on 10/23/2022 04:23 PM [facility] 10-23-2022 Note ORIGINAL EXAMINATION: ONE XRAY VIEW OF THE CHEST 10/23/2022 10:33 am COMPARISON: 10/14/2022. HISTORY: ORDERING SYSTEM PROVIDED HISTORY: Reason for Exam: line placement et og post op FINDINGS: Tip of the endotracheal tube terminates approximately 5.5 cm above the todd. Left subclavian central venous catheter terminates at the distal SVC. A mediastinal drain is demonstrated. Bibasilar chest tubes are noted terminating near the costophrenic angles. Sternotomy wires are noted, intact. Enteric tube is noted coursing below the left hemidiaphragm, beyond the caudal margin of the field of view. Normal heart size for projection. Mild central vascular congestion suspected. A decreased depth of inspiration is noted with scattered mild subsegmental atelectasis. No appreciable pneumothorax or pleural effusion. IMPRESSION: 1. Interval median sternotomy. Endotracheal tube terminates approximately 5.5 cm above the todd. Recommend advancement by 1 cm. Additional medical devices, as above. 2. Mild central vascular congestion suspected. Scattered mild subsegmental atelectasis. Interpreted by: Jeb Kirby DO Preliminary Report By: Jeb Kirby DO Electronically signed By Jeb Kirby DO Dictated Date: 10/23/2022 10:44:27 AM Prelim Date: 10/23/2022 10:47:09 AM Sign Date: 10/23/2022 10:47:09 AM Ordering Provider: [facility] 10-23-2022 Note ORIGINAL EXAMINATION: ONE XRAY VIEW OF THE CHEST 10/23/2022 10:33 am COMPARISON: 10/14/2022. HISTORY: ORDERING SYSTEM PROVIDED HISTORY: Reason for Exam: line placement et og post op FINDINGS: Tip of the endotracheal tube terminates approximately 5.5 cm above the todd. Left subclavian central venous catheter terminates at the distal SVC. A mediastinal drain is demonstrated. Bibasilar chest tubes are noted terminating near the costophrenic angles. Sternotomy wires are noted, intact. Enteric tube is noted coursing below the left hemidiaphragm, beyond the caudal margin of the field of view. Normal heart size for projection. Mild central vascular congestion suspected. A decreased depth of inspiration is noted with scattered mild subsegmental atelectasis. No appreciable pneumothorax or pleural effusion. IMPRESSION: 1. Interval median sternotomy. Endotracheal tube terminates approximately 5.5 cm above the todd. Recommend advancement by 1 cm. Additional medical devices, as above. 2. Mild central vascular congestion suspected. Scattered mild subsegmental atelectasis. Interpreted by: Jeb Kirby DO Preliminary Report By: Jeb Kirby DO Electronically signed By Jeb Kirby DO Dictated Date: 10/23/2022 10:44:27 AM Prelim Date: 10/23/2022 10:47:09 AM Sign Date: 10/23/2022 10:47:09 AM Ordering Provider: [facility] 10-23-2022 Anesthesiology Consult note Patient: DIMITRY CAMARILLO Age: 67 years Sex: Male : 1955 Associated Diagnoses: None Author: JERAMY SALDIVAR DO Preoperative Information Greater than 6 hours Anesthesia history Patient's history: negative. Family's history: negative. Review of Systems Ear/Nose/Mouth/Throat: Negative except as documented in history of present illness. Respiratory: Negative except as documented in history of present illness, Throat CA, S/p Chemo and Radiation, no surgery. Cardiovascular: Negative except as documented in history of present illness, Severe CAD, Previous PCI, for CABG, known Carotid stenosis for stenting in future. Gastrointestinal: Negative except as documented in history of present illness. Genitourinary: Negative except as documented in history of present illness. Endocrine: Negative except as documented in history of present illness. Musculoskeletal: Negative except as documented in history of present illness. Integumentary: Negative except as documented in history of present illness. Neurologic: Negative except as documented in history of present illness. Health Status Allergies: Allergic Reactions (Selected) NKA Histories Social History Social & Psychosocial Habits Alcohol 01/09/2020 Use: Never Employment/School 02/17/2021 Status: Employed Substance Abuse 01/09/2020 Use: Never Tobacco 01/09/2020 Tobacco Use: Former smoker, quit more Comment: quit 20+ years ago - 01/09/2020 16:01 - Ashley Sanchez LPN Home/Environment 10/23/2022 Domestic Concerns None Safe place to go: Yes Current Home Treatments None Special Services and Community Resources None Marital Status of Patient if Patient Independent Adult: Nutrition/Health 01/09/2020 Caffeine intake amount: tea - 1/2 gallon/day . Physical Examination General: Alert and oriented. Airway: Normal temporomandibular joint mobility, Normal mouth, Normal throat, Normal neck range of motion, Trachea midline. Mallampati classification: III (soft palate, base of uvula visible). Head: Normocephalic. Dentition Evaluation: No teeth. Neck: Supple. Respiratory: Lungs are clear to auscultation. Cardiovascular: Normal rate. Heart Sounds: Normal. Gastrointestinal: Soft. Musculoskeletal Normal range of motion. Integumentary: Intact, Warm, Dry, [place]. Neurologic: Alert, Oriented. Assessment and Plan [place] Society of Anesthesiologists (ASA) physical status classification: Class IV. Anesthetic Preoperative Plan Premedication: None. Anesthetic technique: General. Induction: intravenously. Maintenance airway: Oral endotracheal tube. Special techniques: Warming device, Extracorporeal. Special Monitoring: Arterial line, Central venous catheter, Continuous transesophageal echocardiogram. Postoperative pain management: Per surgeon. Risks discussed: nausea, vomiting, headache, sore throat, dental injury, hypotension, allergic reaction, serious complications. Informed consent: signed by patient. Beta Ulysses: Beta Ulysses Taken Within 24 Hrs: Yes. Digitally Signed by JERAMY SALDIVAR DO on 10/23/2022 06:55 AM [facility] 08-28-2022 Evaluation + Plan note Future Scheduled TestsBasic Metabolic Panel 08/28/22NM Myocardial Spect Rest/Stress 06/12/22 [facility] 07-14-2022 Cardiothoracic surgery Consult note Date of Service 07/14/2022 Reason for Consultation Evaluate for CABG Referring Physician Dr. Marcelo History of Present Illness This is a 67-year-old male with past medical history of coronary artery disease status post balloon angioplasty and stent, hypertension, hyperlipidemia, diabetes, and throat cancer status post chemotherapy and radiation 12 years ago. He was seen by cardiology after experiencing 2 episodes of midsternal chest pain/burning without radiation that occurred with minimal activity. It did go away with time and rest. He denies syncope, PND, or orthopnea. Stress test showed inferior and inferior septal wall infarct with partial reversibility, EF of 50%. Heart catheterization today showed CAD and in stent stenosis -heart catheterization final report not available. We are consulted to evaluate for CABG Review of Systems Constitutional: Denies fever, chills, change in weight or appetite, or fatigue HEENT: Denies blurry vision, edentulous, no hearing aids, occasionally wears glasses, mild dysphagia Respiratory: Denies productive or nonproductive cough see HPI CV: See HPI Vascular: Denies claudication, DVT, rest pain GI: Denies nausea, vomiting, constipation, diarrhea, or melena : Denies dysuria, hematuria, frequency or incontinence, positive for nocturia Neuro: Denies weakness, seizures, tremors, memory loss or change in level consciousness Endo: Denies heat/cold intolerance, denies polyuria, polydipsia, polyphagia Chemo/oncology: Denies unusual bleeding bruising or anemia Muscular/skeletal: Denies arthralgia, back pain, myalgia or limited motion Psych: Denies anxiousness nervousness or depression Physical Exam Vitals and Measurements T: 36.4 C (Oral) HR: 78 RR: 18 BP: 112/95(Left Arm) SpO2: 93% HT: 188.0 cm WT: 91.9 kg BMI: 26 BMI: 26 Weight Dosing Weight: 91.9 kg (07/14/22) Mentation: Alert and oriented x4, appropriate HEENT: Atraumatic, normocephalic, PERRLA, mild bilateral hearing loss, trachea midline Heart: Regular S1-S2 Lungs: Bilateral, clear, respirations easy regular nonlabored, on room air Abdomen: Soft, nontender, bowel sounds present Extremities: Normal capillary refill, no edema noted, pulses +2/x4 Neuro: Cranial nerves II through XII intact Skin: No rashes noted skin intact Lab Results 07/14 06:10 Glucose Level: 411 C Sodium Level: 136 Potassium Level: 4.6 BUN: 27.0 H Creatinine Lvl (s): 0.84 Imaging Results and Diagnostics Final heart catheterization report pending EKG Pending Assessment/Plan 1. Unstable angina 2. Coronary artery disease 3. HYPERTENSION, UNSPECIFIED (Renamed from ESSENTIAL (PRIMARY) HYPERTENSION) 4. HYPERLIPIDEMIA (Renamed from HLD (HYPERLIPIDEMIA)) 5. DIABETES MELLITUS (Renamed from DIABETES) 6. HISTORY OF THROAT CANCER S/P chemo and radiation 7. Osteoarthritis Surgical evaluation to follow Preop testing that needs completed: PA and lateral chest x-ray, echocardiogram, carotid duplex, vein mapping, palmar arch studies, radial mapping, CBC, CMP, urinalysis, room air ABGs, TSH, COVID test, (had a hemoglobin A1c done 06/28/2022 -14.8%), APTT STS risk assessment: Risk of Mortality: 0.374% Renal Failure: 0.304% Permanent Stroke: 0.504% Prolonged Ventilation: 1.786% DSW Infection: 0.093% Reoperation: 1.655% Morbidity or Mortality: 3.288% Short Length of Stay: 71.687% Long Length of Stay: 1.134% Problem List/Past Medical History Ongoing ABNORMAL NUCLEAR STRESS TEST (Renamed from ABNORMAL CLINICAL FINDING) CAD IN MORONGO ARTERY (CORONARY ARTERY DISEASE) (Renamed from CAD (CORONARY ARTERY DISEASE), MORONGO CORONARY ARTERY) Cardiac catheterization DIABETES MELLITUS (Renamed from DIABETES) HISTORY OF THROAT CANCER HYPERLIPIDEMIA (Renamed from HLD (HYPERLIPIDEMIA)) HYPERTENSION, UNSPECIFIED (Renamed from ESSENTIAL (PRIMARY) HYPERTENSION) INCREASED BMI (Renamed from OVERWEIGHT) NUMBNESS AND TINGLING IN LEFT ARM Preoperative clearance Historical No qualifying data Procedure/Surgical History Cardiac catheterization: 07/14/22 Miscellaneous: 03/2021 Stent: 08/04/13 Coronary angioplasty: 08/04/13 T& A TURP Medications Inpatient nitroglycerin 0.4 mg sublingual tablet, 0.4 mg= 1 tab(s), Sublingual, q5min, PRN Nitrostat, 0.4 mg= 1 tab(s), Sublingual, q5min, PRN NO METFORMIN (Glucophage) X 48hrs-patient has received contrast, 1 EA, Miscellaneous, Unscheduled Rowan 325- 5 mg oral tablet, 1 tab(s), Oral, q6h, PRN Sodium Chloride 0.9% intravenous solution 1,000 mL, 1000 mL, Intravenous Tylenol Extra Strength, 1000 mg= 2 tab(s), Oral, q6h, PRN Home Amaryl 4 mg oral tablet, 4 mg= 1 tab(s), Oral, BID Aspir-Low 81 mg oral delayed release tablet, 81 mg= 1 tab(s), Oral, qDay Calcium 600+D 600 mg-200 intl units (5 mcg) oral tablet, 1 tab(s), Oral, Daily Cinnamon 1000 mg capsule, 2 cap(s), Oral, qDay Co-Q10, Unknown Strength (NEEDS CLARIFIED), Oral isosorbide mononitrate 60 mg oral tablet, extended release lisinopril 10 mg oral tablet, 10 mg= 1 tab(s), Oral, Daily magnesium glycinate 200 mg oral tablet, 400 mg= 2 tab(s), Oral metFORMIN 1000 mg oral tablet, 1000 mg= 1 tab(s), Oral, BIDM metoprolol tartrate 100 mg oral tablet, 100 mg= 1 tab(s), Oral, BID, 10 refills nateglinide 120 mg oral tablet, 120 mg= 1 tab(s), Oral, TIDAC nitroglycerin 0.4 mg sublingual spray, 0.4 mg= 1 spray(s), Sublingual, q5min, PRN simvastatin 80 mg oral tablet (NF), 80 mg= 1 tab(s), Oral, qHS Ultra Darek Krill Oil 500 mg oral capsule, 500 mg= 1 cap(s), Oral, BID Allergies NKA Social History Quit smoking in 2005, 35-year smoking history of 2 packs/day Denies alcohol usage Denies drug usage 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 Digitally Signed by JEOVANNY CHAPIN on 07/14/2022 01:59 PM [facility] 07-14-2022 Nurse Progress note Cardio thoracic surgical DOPE MIXER in to see pt, pt will get call for appt with Dr. Acosta Digitally Signed by Lou Wood RN on 07/14/2022 01:57 PM [facility] 07-14-2022 Summary of episod e note Discharge Instructions Thank you for allowing [place] to assist you with your healthcare needs. The following is important discharge information regarding your hospital visit. Your Care Team JOSE A WARNER MD What to do next Scheduled Follow-Up Appointments Appointment Type When With Where Contact InformationCV OV 08/06/2022 01:00 PM EDT CHAYO HUFF PA-C [facility] Follow Up Appointments Follow Up with DIDIER MARCELO MD When 08/06/2022 09:00 AM EDT Why: THIS APPOINTMENT WILL BE WITH DIALLO BOYER Where: [address] [place] [address]- [phone] Allergies NKA Medications Please ask your primary doctor or pharmacist before taking any other medication not listed, including over the counter drugs, herbal medications, vitamins and or supplements as they may interact with your home medications. What How Much When Instructions Last Dose Changed metoprolol (metoprolol tartrate 100 mg oral tablet) 1 tab(s) by mouth Two (2) times a day Pickup at [id number] Unchanged aspirin (Aspir-Low 81 mg oral delayed release tablet) 1 tab(s) by mouth Once a day Unchanged calcium-vitamin D (Calcium 600+D 600 mg-200 intl units (5 mcg) oral tablet) 1 tab(s) by mouth Every day Unchanged glimepiride (Amaryl 4 mg oral tablet) 1 tab(s) by mouth Two (2) times a day Unchanged herbal/ nutritional product (Cinnamon 1000 mg capsule) 2 cap by mouth Once a day Unchanged isosorbide mononitrate (isosorbide mononitrate 60 mg oral tablet, extended release) TAKE 1 TABLET BY MOUTH ONCE DAILY Unchanged lisinopril (lisinopril 10 mg oral tablet) 1 tab(s) by mouth Every day Unchanged magnesium glycinate (magnesium glycinate 200 mg oral tablet) 2 tab(s) by mouth Unchanged metFORMIN (metFORMIN 1000 mg oral tablet) 1 tab(s) by mouth Twice daily with meals Unchanged nateglinide (nateglinide 120 mg oral tablet) 1 tab(s) by mouth Three (3) times a day before meals Unchanged nitroGLYcerin (nitroglycerin 0.4 mg sublingual spray) 1 spray(s) under the tongue Every 5 minutes as needed for as needed for chest pain Unchanged omega-3 polyunsaturated fatty acids (Ultra Darek Krill Oil 500 mg oral capsule) 1 cap by mouth Two (2) times a day Unchanged simvastatin (simvastatin 80 mg oral tablet (NF)) 1 tab(s) by mouth Daily at bedtime Unchanged ubiquinone (Co-Q10) Unknown Strength (NEEDS CLARIFIED) by mouth 400 mg Pharmacy Information [id number]: [address] [place], [place] [id number] [phone] Please take this list to your next doctor s visit. Bring all medications you take, including over the counter medications, herbals and other supplements with you to your doctor s visit. Patients and families are reminded to discard old lists and to update any records with all medication providers or retail pharmacies. Education Materials HEART CATHETERIZATION/PCI (groin) Discharge Instructions DIET INSTRUCTIONS Drink plenty of fluids for the next 48 hours to help your kidneys flush the heart cath dye out of your system ACTIVITIES May go up and down stairs CAREFULLY Do not drive car FOR 24 HOURS No heavy lifting GREATER THAN 10 POUNDS or pushing or straining FOR 7 DAYS Someone must stay with you at home after the procedure until the morning. BATHING/SHOWERING May tub bathe in 1 week May shower tomorrow WOUND CARE You will go home with a small dressing over your heart cath site. Keep this dressing on for the next 24 hours and then leave open to air. Some degree of bruising and tenderness is normal around the heart cath site. It will take a while for any bruising to completely resolve. Keep your site clean and dry. You need to report the following to your structural iron erector: Any draining or oozing from the site Any swelling at the site Any increased pain or tenderness at the site Any numbness in your leg where the procedure was done Any signs of infection IMPORTANT! CALL 911 FOR ANY BLEEDING OR SWELLING AT THE PROCEDURE SITE If there is any large amount of bleeding, you or someone else need to apply direct pressure to the site (just like the nurse did in the heart lab after your procedure). It is very important that you hold constant pressure. Do not release the pressure to check if the bleeding has stopped. You then need to be transported to the nearest emergency room. WATCH FOR SIGNS OF INFECTION (Usually appears 36-48 hours after surgery) A temperature above 100.5 Redness or swelling Increased pain Foul odor or drainage If you have any questions, please call your doctor at the number listed on your follow up instructions. Follow all instructions given to you by your physician Document Released: 11/08/2006 Document Revised: 10/25/2013 Document Reviewed: 11/09/2014 [facility] Patient Information 2015 [employer]. This information is not intended to replace advice given to you by your health care provider. Make sure you discuss any questions you have with your health care provider. Moderate Conscious Sedation, Adult, Care After These instructions provide you with information about caring for yourself after your procedure. Your health care provider may also give you more specific instructions. Your treatment has been planned according to current medical practices, but problems sometimes occur. Call your health care provider if you have any problems or questions after your procedure. What can I expect after the procedure? After your procedure, it is common: To feel sleepy for several hours. To feel clumsy and have poor balance for several hours. To have poor judgment for several hours. To vomit if you eat too soon. Follow these instructions at home: For at least 24 hours after the procedure: Do not: ? Participate in activities where you could fall or become injured. ? Drive. ? Use heavy machinery. ? Drink alcohol. ? Take sleeping pills or medicines that cause drowsiness. ? Make important decisions or sign legal documents. ? Take care of children on your own. Rest. Eating and drinking Follow the diet recommended by your health care provider. If you vomit: ? Drink water, juice, or soup when you can drink without vomiting. ? Make sure you have little or no nausea before eating solid foods. General instructions Have a responsible adult stay with you until you are awake and alert. Take tdjn-aie-qeujftv and prescription medicines only as told by your health care provider. If you smoke, do not smoke without supervision. Keep all follow-up visits as told by your health care provider. This is important. Contact a health care provider if: You keep feeling nauseous or you keep vomiting. You feel light-headed. You develop a rash. You have a fever. Get help right away if: You have trouble breathing. This information is not intended to replace advice given to you by your health care provider. Make sure you discuss any questions you have with your health care provider. Document Released: 08/29/2014 Document Revised: 10/21/2018 Document Reviewed: 02/27/2017 [facility] Patient Education 2020 [employer]. Additional Information VACCINATE! IT SAVES LIVES! Members of the community who have not yet received the COVID-19 vaccine and would like to receive it can visit one of [facility] vaccine clinics. There are many vaccine clinic locations within the [facility]. For locations and available times, please visit [email or web address].o hio.gov/. It is important to note that some COVID mobile vaccine clinics are held outdoors and may be canceled in rainy or stormy conditions. To learn more about pediatric vaccinations (ages 5-11), we invite you to visit the [facility] webpage. https://www.[email or web address].org/p ages/[email or web address]-Zehex-Paovmjqihkb-Freq xnozfr-Gbhsr-Weiihxtsk.html To learn more about the COVID-19 vaccine, we invite you to visit the [place] website for a list of frequently asked questions. [email or web address]/assets/Patie hvq-alr-Bfzizzkt/ffeyu-Fixtgtv-X requently_Asked-Questions.pdf [place] [facility] Patient Portal Access Instructions: Stay connected with your healthcare team and access your personal medical information anytime with the [place] [facility] Patient Portal.If you would like a full copy of your medical records, please contact the [facility] Medical Records Department, Wednesday through Wednesday between 8a.m. and 4:30p.m. Please follow the directions below to access the portal: 1.Access the email account you provided upon registration to the hospital.2.Look for an invitation email from [facility].3.Open the email and access the invitation link: Accept Invitation to [employer]4.Fill in the required olmstead to create your account. Sign into [email or web address] with your username and password that you created in the above steps to stay up to date. You can then view a summary of results, a summary of your visits, and the ability to download your summaries to your computer or send the information securely to a physician. Remember that your healthcare information is confidential, so carefully consider who you will allow to register on the [employer] Patient Portal for access to your information. You can also access the [employer] Patient Portal on the [employer]. Simply click on Health Records under Health Data and then click on the [employer] logo. HOW TO SAFELY DISPOSE OF PRESCRIPTION MEDICATIONS Please use one of the following methods to safely dispose of your unused medications. 1.Use a drug disposal kit: the drug disposal pouch allows you to safely discard your old and unused drugs. Ask your nurse to give you one when you are discharged.2.Visit a local take-back location: Many local pharmacies and police departments have programs that collect old and unwanted prescription drugs. Call your local pharmacy or go to http://[employer]/8B8En6w to find one close to you.3.Make use of household items: Use cat litter or old coffee grounds to dispose medications if other options are not available. Mix your drugs with these household products, seal them in an airtight container and throw it into the garbage. Call [facility]: [phone] to be sure your drugs can be disposed of in this way. Some medicines may require a different approach.4.Never flush your medications down the toilet. IF YOU HAVE BEEN PRESCRIBED AN OPIOID FOR PAIN If you have been prescribed an opioid (such as hydrocodone, oxycodone or morphine), it is critical to understand the possible side effects and risks of opioid pain medications. Even when taken as directed, opioids can have several side effects including: Tolerance, meaning you might need to take more of a medication for the same pain relief. Nausea, vomiting and/or constipation. Sleepiness, dizziness, dry mouth, confusion, depression or itching. Physical dependence, meaning you have withdrawal symptoms when a medication is stopped, can develop within a few days. KNOW YOUR RESPONSIBILITIES It is important to know exactly how much and how often to take the opioid pain medications you are prescribed. Never take opioids in higher amounts or more often than prescribed. Do not combine opioids with alcohol or other drugs that cause drowsiness, such as benzodiazepines, also known as benzos, including diazepam and alprazolam, muscle relaxants or sleep aids. Never sell or share prescription opioids. This is illegal. Store opioids in a secure place and out of reach of others (including children, family, friends and visitors). The last page of this document has been signed and retained as a CHART COPY. Signatures Patient Education Materials 3- Heart Cath/PCI groin (08/2018) (CUSTOM) Moderate Conscious Sedation, Adult, Care After Medication Leaflets My discharge plan and instructions have been reviewed and explained to me and I,DIMITRY CAMARILLO understand my current condition and have read and understand these discharge instructions. I have received a written copy of the plan/instructions. If I have questions, I am aware that I should contact my doctor. Patient/City Collector Signature: Date/Time: Relationship to Patient: Witness Name/Signature: Date/Time: [facility] 07-14-2022 Hospital Discharg e instructions Patient Education 07/14/2022 10:12:53 3- Heart Cath/PCI groin (08/2018) (CUSTOM) HEART CATHETERIZATION/PCI (groin) Discharge Instructions DIET INSTRUCTIONS Drink plenty of fluids for the next 48 hours to help your kidneys flush the heart cath dye out of your system ACTIVITIES May go up and down stairs CAREFULLY Do not drive car FOR 24 HOURS No heavy lifting GREATER THAN 10 POUNDS or pushing or straining FOR 7 DAYS Someone must stay with you at home after the procedure until the morning. BATHING/SHOWERING May tub bathe in 1 week May shower tomorrow WOUND CARE You will go home with a small dressing over your heart cath site. Keep this dressing on for the next 24 hours and then leave open to air. Some degree of bruising and tenderness is normal around the heart cath site. It will take a while for any bruising to completely resolve. Keep your site clean and dry. You need to report the following to your structural iron erector: Any draining or oozing from the site Any swelling at the site Any increased pain or tenderness at the site Any numbness in your leg where the procedure was done Any signs of infection IMPORTANT! CALL 911 FOR ANY BLEEDING OR SWELLING AT THE PROCEDURE SITE If there is any large amount of bleeding, you or someone else need to apply direct pressure to the site (just like the nurse did in the heart lab after your procedure). It is very important that you hold constant pressure. Do not release the pressure to check if the bleeding has stopped. You then need to be transported to the nearest emergency room. WATCH FOR SIGNS OF INFECTION (Usually appears 36-48 hours after surgery) A temperature above 100.5 Redness or swelling Increased pain Foul odor or drainage If you have any questions, please call your doctor at the number listed on your follow up instructions. Follow all instructions given to you by your physician Document Released: 11/08/2006 Document Revised: 10/25/2013 Document Reviewed: 11/09/2014 [facility] Patient Information 2015 [employer]. This information is not intended to replace advice given to you by your health care provider. Make sure you discuss any questions you have with your health care provider. 07/14/2022 10:11:09 Moderate Conscious Sedation, Adult, Care After Moderate Conscious Sedation, Adult, Care After These instructions provide you with information about caring for yourself after your procedure. Your health care provider may also give you more specific instructions. Your treatment has been planned according to current medical practices, but problems sometimes occur. Call your health care provider if you have any problems or questions after your procedure. What can I expect after the procedure? After your procedure, it is common: To feel sleepy for several hours. To feel clumsy and have poor balance for several hours. To have poor judgment for several hours. To vomit if you eat too soon. Follow these instructions at home: For at least 24 hours after the procedure: Do not: ?Participate in activities where you could fall or become injured. ?Drive. ?Use heavy machinery. ?Drink alcohol. ?Take sleeping pills or medicines that cause drowsiness. ?Make important decisions or sign legal documents. ?Take care of children on your own. Rest. Eating and drinking Follow the diet recommended by your health care provider. If you vomit: ?Drink water, juice, or soup when you can drink without vomiting. ?Make sure you have little or no nausea before eating solid foods. General instructions Have a responsible adult stay with you until you are awake and alert. Take nctv-wiv-reoihxm and prescription medicines only as told by your health care provider. If you smoke, do not smoke without supervision. Keep all follow-up visits as told by your health care provider. This is important. Contact a health care provider if: You keep feeling nauseous or you keep vomiting. You feel light-headed. You develop a rash. You have a fever. Get help right away if: You have trouble breathing. This information is not intended to replace advice given to you by your health care provider. Make sure you discuss any questions you have with your health care provider. Document Released: 08/29/2014 Document Revised: 10/21/2018 Document Reviewed: 02/27/2017 [employer] Patient Education 2020 [employer]. Follow Up Care 07/03/2022 11:24:19 With:JOSE A WARNER MD, Infectious Disease, Infectious Disease Group Address: [address] [place] [address] [address] [facility] [address]- [phone] When: Unknown Comments:Call office for an appointment to evaluate blood sugar control/managementHgb A1C 14.8% With:NASIM ACOSTA MD, Thoracic Service, Vascular Service Address: [address] [facility] [address] [facility] [place] [address]- [phone] When: Unknown Comments:The office will call you for your pre testing and office appointmentStop taking CoQ10 and Cinnamon supplements With:DIDIER MARCELO MD Address: [address] [facility] [address] [facility] [place] [address]- [phone] When:08/06/2022 09:00:00 Comments:THIS APPOINTMENT WILL BE WITH DIALLO BOYER [facility] Evaluation + Plan note Future Appointments Appointment Date:08/06/2022 01:00:00 PM Scheduled Provider:CHAYO HUFF PA-C Location:[facility] Appointment Type:CV OV Future Scheduled TestsNM Myocardial Spect Rest/Stress 06/12/22 [facility] Evaluation + Plan note Future Appointments Appointment Date:09/01/2022 02:30:00 PM Scheduled Provider:NASIM ACOSTA MD Location:[facility] Appointment Type:CTS OV Future Scheduled TestsCT Angiography Neck w/ Contrast 08/27/22NM Myocardial Spect Rest/Stress 06/12/22 [facility] Evaluation + Plan note Future Appointments Appointment Date:11/04/2022 02:00:00 PM Scheduled Provider:MUKESH ANDERSEN Location:[facility] Appointment Type:CTS OV Post Op Appointment Date:11/24/2022 11:00:00 AM Scheduled Provider:CHAYO HUFF PA-C Location:[facility] Appointment Type:CV OV Future Scheduled TestsBasic Metabolic Panel 08/28/22NM Myocardial Spect Rest/Stress 06/12/22 [facility] Evaluation + Plan note Future Appointments Appointment Date:11/24/2022 10:30:00 AM Scheduled Provider:MUKESH ANDERSEN Location:[facility] Appointment Type:CTS OV Post Op Follow Up Appointment Date:11/24/2022 11:00:00 AM Scheduled Provider:CHAYO HUFF PA-C Location:[facility] Appointment Type:CV OV Future Scheduled TestsBasic Metabolic Panel 08/28/22Basic Metabolic Panel 11/04/22Complete Blood Count 11/04/22NM Myocardial Spect Rest/Stress 06/12/22XR Chest 2 Views (PA & Lateral) 11/25/22 [facility] Hospital course Narrative No data available for this section [facility] Hospital Discharge instructions No data available for this section [facility] Note DIDIER MARCELO MD: SIGN, VERIFY Event Display: Cardiac Catheterization -CV Authored Date: [id number] [facility] Note LAUREN GODINEZ MD: SIGN, VERIFY Event Display: VL Carotid US/Doppler Complete - CV LAUREN GODINEZ MD: SIGN, VERIFY Event Display: VL Palmar Arch Study LAUREN GODINEZ MD: SIGN, VERIFY Event Display: VL Radial Mapping Study LAUREN GODINEZ MD: SIGN, VERIFY Event Display: VL Vein Mapping US/Doppler Both Legs-CV [facility] Progress note No data available for this section [facility] Summary Purpose Family History No Family History Records FoundNo Family History Records FoundNo Family History Records Found Advance Directives No Advanced Directives Records FoundNo Advanced Directives Records FoundNo Advanced Directives Records Found Additional Source Comments (unrecognized sect ion and content) No Status Records FoundNo Status Records FoundNo Status Records Found INFORMATION SOURCE (unrecogn ized section and content) DATE CREATED AUTHOR AUTHOR'S ORGANIZ ATION 11/24/2022 [facility] DATE CREATED AUTHOR AUTHOR'S ORGANIZ ATION 10/13/2023 [facility] Care Team (unrecognized sect ion and content) Care Team Personnel Name: JOSE A WARNER MD Position: Physician Member Role: Primary Care Physician Address: Address: [address] [place] [address] [address] [facility] [address]- Care Team Related Persons Name: PATRICK EL Care Team Personnel Name: NASIM ACOSTA MD Position: Physician - Cardiothoracic Surgery Med Service: Active Provider Member Role: Cardiothoracic Surgeon Address: Address: [address] [facility] [address] [facility] [place] [address]- Name: JOSE A WARNER MD Position: Physician Med Service: Active Provider Member Role: Primary Care Physician Address: Address: [address] [place] [address] [address] [facility] Name: DIDIER MARCELO MD Position: P4 Physician - Cardiology Med Service: Employed Provider Member Role: Industrial Relations Officer Address: Address: [address] [place] [address] Care Team Related Persons Name: PATRICK EL Care Team Personnel Name: NASIM ACOSTA MD Position: P4 Physician - Cardiothoracic Surgery Med Service: Active Provider Member Role: Cardiothoracic Surgeon Address: Address: [address] [place] [address] Name: JOSE A WARNER MD Position: Physician Med Service: Active Provider Member Role: Primary Care Physician Address: Address: [address] [place] [address] Name: DIDIER MARCELO MD Position: P4 Physician - Cardiology Med Service: Employed Provider Member Role: Industrial Relations Officer Address: Address: [address] [place] [address] Care Team Related Persons Name: PATRICK EL Care Team Personnel Name: NASIM ACOSTA MD Position: P4 Physician - Cardiothoracic Surgery Member Role: Cardiothoracic Surgeon Address: Address: [address] [place] [address] Name: JOSE A WARNER MD Position: Physician Member Role: Primary Care Physician Address: Address: [address] [place] [address] Name: DIDIER MARCELO MD Position: P4 Physician - Cardiology Member Role: Industrial Relations Officer Address: Address: [address] [place] [address] Care Team Related Persons Name: PATRICK EL Care Team Personnel Name: NASIM ACOSTA MD Position: P4 Physician - Cardiothoracic Surgery Member Role: Cardiothoracic Surgeon Address: Address: [address] [place] [address] Name: JOSE A WARNER MD Position: Physician Member Role: Primary Care Physician Address: Address: [address] [facility] [address]- [place] Name: WILLIAM VIERA MD Position: CV Physician Member Role: Vascular Surgeon Address: Address: [address] [facility] [address] [facility] [place] [address] Name: DIDIER MARCELO MD Position: Physician - Cardiology Member Role: Industrial Relations Officer Address: Address: [address] [facility] [address] [facility] [address]- Care Team Related Persons Name: PATRICK EL FOR RECORDS PERTAINING TO PATIENTS WHO ARE OR HAVE BEEN ENROLLED IN A CHEMICAL DEPENDENCY/SUBSTANCEABUSE PROGRAM, SOME INFORMATION MAY BE OMITTED. This clinical summary was aggregated from multiple sources. Caution should be exercised in using it in the provision of clinical care. This summary normalizes information from multiple sources, and as a consequence, information in this document may materially change the coding, format and clinical context of patient data. In addition, data may be omitted in some cases. CLINICAL DECISIONS SHOULD BE BASED ON THE PRIMARY CLINICAL RECORDS. [employer] provides no warranty or guarantee of the accuracy or completeness of information in this document.
[2023-11-21 12:11] LABS: Anion Gap 3 (5-15); BUN 17 mg/dL (7-18); Calcium,Total 9.5 mg/dL (8.5-10.1); Chloride 107 mmol/L (98-107); Creatinine, Serum 0.85 mg/dL (0.70-1.30); EST Glomerular Filtration Rate 95 mL/min (>60); Est Glom Filt Rate - Afr Amer 115 mL/min (>60); Estimated Creatinine Clearance 92.69 ml/min; Glucose 346 mg/dL (74-106); Sodium Level 139 mmol/L (136-145); Troponin-I HS 12 pg/mL (3.0-78.0)
[2023-11-21] MEDS: Acetaminophen 325 MG Tablet 650 MG PO (13:55)
[2023-11-21 15:29] VITALS: BP 154/99; PULSE 85; RESP 17; O2SAT 93
[2023-11-21 16:02] LABS: CRP < 2.90 mg/L (0.0-3.0)
[2023-11-21 16:08] LABS: Erythrocyte Sedimentation Rate 10 mm/hr (0-20)
[2023-11-21] MEDS: HYDROcodone Bitartrate/Apap 5/325 Tablet PO (16:15)
== END 2023-11-21 16:17 | disposition home or self-care (01) ==
PROVIDERS: Physician Assistant; Emergency Provider Emergency Medicine; PCP Internal Medicine Infectious Disease; Visit Provider Emergency Medicine
DX: H53.2 Diplopia (principal); E11.65 Type 2 diabetes mellitus with hyperglycemia; Z79.4 Long term (current) use of insulin; Z87.891 Personal history of nicotine dependence; H49.00 Third [oculomotor] nerve palsy, unspecified eye; I10 Essential (primary) hypertension; E78.5 Hyperlipidemia, unspecified; Z79.82 Long term (current) use of aspirin; Z79.899 Other long term (current) drug therapy; I25.10 Atherosclerotic heart disease of native coronary artery without angina pectoris; Z79.84 Long term (current) use of oral hypoglycemic drugs; Z79.02 Long term (current) use of antithrombotics/antiplatelets
CPT/HCPCS: 70450; 70496; 70498; 71045; 80048; 84484; 85025; 85610; 85652; 85730; 86140; 93005; 99285; Q9967; A4216

== ENCOUNTER → 2023-12-10 | Outpatient (CLI) | payer MEDICARE, BC, SELFPAY ==
--- OUTSIDE RECORDS SUMMARY | 2023-12-10 07:32 | XMS RPT_ITS | CCD ---
Author Name Unknown Address [address] [facility] [address] [place] [address] Organization [facility] Care Team Providers Care Environmental Specialist Name Role Phone TIMMY HAJI, DR NARANJO [...] De La Rosa MD Consulting Unavailable ANDERSEN TISSUE PACKER, MSSandra Sanford Attending Marie WARNER MD., DR. NARANJO Primary [...] UNKNOWN Consulting Unavailable JOSE A WARNER MD Attending Unavailable JOSE A WARNER MD Admitting Unavailable JOSE A WARNER MD Primary Care Unavailable JOSE A WARNER MD Consulting Unavailable PROVIDER, UNKNOWN Consulting Unavailable PROVIDER, UNKNOWN Consulting Unavailable PROVIDER, UNKNOWN Consulting Unavailable JOSE A WARNER MD Consulting Unavailable ARIC, EULA PAC Admitting Unavailable ARIC, EULA PAC Primary Care Unavailable ARIC, EULA PAC Attending Unavailable PROVIDER, UNKNOWN Consulting Unavailable PROVIDER, UNKNOWN Consulting Unavailable PROVIDER, UNKNOWN Consulting Unavailable JOSE A WARNER MD Consulting Unavailable JOSE A WARNER MD Attending Unavailable JOSE A WARNER MD Admitting Unavailable JOSE A WARNER MD Primary Care Unavailable PROVIDER, UNKNOWN Consulting Unavailable PROVIDER, UNKNOWN Consulting Unavailable PROVIDER, UNKNOWN Consulting Unavailable JOSE A WARNER MD Attending Unavailable JOSE A WARNER MD Admitting Unavailable JOSE A WARNER MD Primary Care Unavailable JOSE A WARNER MD Consulting Unavailable PROVIDER, UNKNOWN Consulting Unavailable PROVIDER, [...] BID, # 84 tab(s), 0 Refill(s), Pharmacy: [facility], 184, cm, 10/23/22 10:10:00 EST, [...] Classification Problem Date Documented Da te Episodic/Chronic Spondylosis; intervertebral disc disorders; other back problems (1 source) Radiculopathy, site unspecified; Translations: [Radiculopathy, site unspecified] Onset: 04-12-2023 Episodic Results Test Name Value Interpretation Reference Range Facil ity Vital Signs Date Time Vital Sign Value Performing Clinician Josette litmiracle 10-28-2022 13:43-0500 Heart rate 74 /min NASIM ACOSTA MD [facility] 10-28-2022 13:43-0500 Respiratory rate 18 /min NASIM ACOSTA MD [facility] 10-28-2022 11:03-0500 Body temperature 98.78 [degF] NASIM ACOSTA MD [facility] 10-28-2022 11:03-0500 Diastolic Blood Pressure Non-Invasive 71 1 NASIM ACOSTA MD [facility] 10-28-2022 11:03-0500 Heart rate 66 /min NASIM ACOSTA MD [facility] 10-28-2022 11:03-0500 Mean blood pressure 85 mm[Hg] NASIM ACOSTA MD [address] [place] [address] 10-28-2022 11:03-0500 Reason For Taking VItal Signs NASIM ACOSTA MD [facility] 10-28-2022 11:03-0500 Respiratory rate 18 /min NASIM ACOSTA MD [facility] 10-28-2022 11:03-0500 Systolic Blood Pressure Non-Invasive 114 1 NASIM ACOSTA MD [facility] 10-28-2022 08:17-0500 Heart rate 90 /min NASIM ACOSTA MD [facility] 10-28-2022 08:17-0500 Reason For Taking VItal Signs NASIM ACOSTA MD [address] [place] [address] 10-28-2022 08:17-0500 Respiratory rate 18 /min NASIM ACOSTA MD [facility] 10-28-2022 06:56-0500 Body temperature 98.24 [degF] NASIM ACOSTA MD [facility] 10-28-2022 06:56-0500 Diastolic Blood Pressure Non-Invasive 81 1 NASIM ACOSTA MD [facility] 10-28-2022 06:56-0500 Heart rate 93 /min NASIM ACOSTA MD [facility] 10-28-2022 06:56-0500 Mean blood pressure 89 mm[Hg] NASIM ACOSTA MD [facility] 10-28-2022 06:56-0500 Reason For Taking VItal Signs NASIM ACOSTA MD [facility] 10-28-2022 06:56-0500 Systolic Blood Pressure Non-Invasive 115 1 NASIM ACOSTA MD [facility] 10-28-2022 04:29-0500 Body temperature 98.6 [degF] NASIM ACOSTA MD [facility] 10-28-2022 04:29-0500 Diastolic Blood Pressure Non-Invasive 83 1 NASIM ACOSTA MD [facility] 10-28-2022 04:29-0500 Mean blood pressure 95 mm[Hg] NASIM ACOSTA MD [facility] 10-28-2022 04:29-0500 Systolic Blood Pressure Non-Invasive 123 1 NASIM ACOSTA MD [facility] 10-27-2022 16:19-0500 Heart rate 80 /min NASIM ACOSTA MD [facility] 10-27-2022 10:18-0500 Heart rate 73 /min NASIM ACOSTA MD [facility] 10-27-2022 09:26-0500 Heart rate 87 /min NASIM ACOSTA MD [address] [place] [address] 10-26-2022 08:15-0500 Body temperature 95 [degF] NASIM ACOSTA MD [facility] 10-26-2022 07:45-0500 Body temperature 95 [degF] ANSIM ACOSTA MD [facility] 10-24-2022 13:21-0500 Diastolic blood pressure 63 mm[Hg] NASIM ACOSTA MD [facility] 10-24-2022 13:21-0500 Mean blood pressure 82 mm[Hg] NASIM ACOSTA MD [facility] 10-24-2022 13:21-0500 Systolic blood pressure 114 mm[Hg] NASIM ACOSTA MD [facility] 10-24-2022 12:20-0500 Diastolic blood pressure 86 mm[Hg] NASIM ACOSTA MD [facility] 10-24-2022 12:20-0500 Mean blood pressure 110 mm[Hg] NASIM ACOSTA MD [facility] 10-24-2022 12:20-0500 Systolic blood pressure 150 mm[Hg] NASIM ACOSTA MD [facility] 10-24-2022 12:01-0500 Diastolic blood pressure 75 mm[Hg] NASIM ACOSTA MD [facility] 10-24-2022 12:01-0500 Mean blood pressure 97 mm[Hg] NASIM ACOSTA MD [facility] 10-24-2022 12:01-0500 Systolic blood pressure 134 mm[Hg] NASIM ACOSTA MD [facility] 10-23-2022 15:33-0500 SaO2% (BldA) [Mass fraction] 96.6 % NASIM ACOSTA MD [facility] 10-23-2022 14:27-0500 SaO2% (BldA) [Mass fraction] 98.5 % NASIM ACOSTA MD [facility] 10-23-2022 14:24-0500 Body temperature 96.26 [degF] NASIM ACOSTA MD [facility] 10-23-2022 14:22-0500 Body temperature 96.26 [degF] NASIM ACOSTA MD [facility] 10-23-2022 14:17-0500 Body temperature 96.26 [degF] NASIM ACOSTA MD [facility] 10-23-2022 12:04-0500 SaO2% (BldA) [Mass fraction] 98.3 % NASIM ACOSTA MD [facility] 10-23-2022 10:10-0500 Body height 184 cm NASIM ACOSTA MD [facility] 10-23-2022 10:10-0500 Body weight 92 kg NASIM ACOSTA MD [facility] 10-23-2022 10:10-0500 Body weight 27.17 kg/m2 NASIM ACOSTA MD [facility] 10-23-2022 10:00-0500 Body temperature 95.4 [degF] NASIM ACOSTA MD [facility] 10-23-2022 09:55-0500 Body temperature 95.43 [degF] NASIM ACOSTA MD [facility] 10-23-2022 09:50-0500 Body temperature 95.41 [degF] NASIM ACOSTA MD [facility] 10-23-2022 09:36-0500 SaO2% (BldA) [Mass fraction] 99.4 % NASIM ACOSTA MD [facility] 10-23-2022 07:35-0500 SaO2% (BldA) [Mass fraction] 94.8 % NASIM ACOSTA MD [facility] 10-23-2022 06:11-0500 Heart rate 90 /min NASIM ACOSTA MD [facility] 07-14-2022 09:50-0400 diastolic 95 mm[Hg] DR DIDIER MARCELO MD [facility] 07-14-2022 09:50-0400 Heart rate 78 /min DR DIDIER MARCELO MD [address] 07-14-2022 09:50-0400 systolic 112 mm[Hg] DR DIDIER MARCELO MD [address] 07-14-2022 09:48-0400 diastolic 95 mm[Hg] DR DIDIER MARCELO MD [facility] 07-14-2022 09:48-0400 Heart rate 79 /min DR DIDIER MARCELO MD [facility] 07-14-2022 09:48-0400 Respiratory rate 18 /min DR DIDIER MARCELO MD [facility] 07-14-2022 09:48-0400 systolic 113 mm[Hg] DR DIDIER MARCELO MD [address] 07-14-2022 09:44-0400 diastolic 95 mm[Hg] DR DIDIER MARCELO MD [address] 07-14-2022 09:44-0400 Heart rate 76 /min DR DIDIER MARCELO MD [address] 07-14-2022 09:44-0400 Respiratory rate 18 /min DR DIDIER MARCELO MD [facility] 07-14-2022 09:44-0400 systolic 130 mm[Hg] DR DIDIER MARCELO MD [facility] 07-14-2022 09:35-0400 Respiratory rate 18 /min DR DIDIER MARCELO MD [address] 07-14-2022 06:12-0400 Body height [address] DIDIER MARCELO MD [address] 07-14-2022 06:12-0400 Body temperature 97.52 [degF] DR DIDIER MARCELO MD [address] 07-14-2022 06:12-0400 Body weight 91.[address] DIDIER MARCELO MD [address] 07-14-2022 06:12-0400 Body weight 26 kg/m2 DR DIDIER MARCELO MD [address] Encounters Encounter Date Encounter Type Care Provider Facility Start: 12-06-2023 ambulatory JOSE A HAJI [facility] Start: 10-07-2023 End: 10-07-2023 ambulatory JOSE A HAJI [facility] Start: 04-12-2023 End: 05-28-2023 ambulatory JOSE A HAJI [facility] Start: 02-16-2023 End: 02-16-2023 ambulatory JOSE A HAJI [facility] Start: 01-05-2023 End: 01-05-2023 ambulatory JOSE A HAJI [facility] Start: 11-24-2022 ambulatory MS. MUKESH ANDERSEN TISSUE PACKER Facility:A Start: 11-04-2022 End: 11-05-2022 ambulatory MS. MUKESH ANDERSEN TISSUE PACKER Facility:A Start: 11-04-2022 End: 11-04-2022 Patient encounter procedure MUKESH ANDERSEN INTERNIST MEDICAL DOCTOR MD-TISSUE PACKER [facility] Start: 10-30-[address] JOSE A WARNER MD. Fa cility:R Start: 10-23-2022 End: 10-28-2022 Evaluation and management of inpatient NASIM ACOSTA MD Facility:A Start: 10-23-2022 End: 10-28-2022 Evaluation and management of inpatient NASIM ACOSTA MD [facility] Start: 10-14-2022 End: 10-15-[address] JOSE A WARNER MD. Facility:A Start: 09-01-2022 End: 09-02-2022 ambulatory NASMI ACOSTA MD Facility:A Start: 09-01-2022 End: 09-01-2022 Patient encounter procedure NASIM ACOSTA MD [facility] Start: 08-27-2022 End: 08-28-2022 ambulatory NASIM ACOSTA MD Facility:A Start: 08-27-2022 End: 08-27-2022 Patient encounter procedure NASIM ACOSTA MD [facility] Start: 07-14-2022 End: 07-14-[address] JOSE A WARNER MD. Facility:A Start: 07-14-2022 End: 07-14-[address] DIDIER MARCELO MD [facility] Start: 06-24-2022 ambulatory DIDIER MELENDREZ MD Faci lity:A Procedures Date Procedure Procedure Detail Performing Clinician Start: 10-07-2023 Urinalysis JOSE A VELÁSQUEZ Immunizations Immunization Date Immunization Notes Care Provider Fa cility 09-28-2022 influenza virus vacc ine, unspecified formulation NASIM ACOSTA MD [facility] 09-28-2022 SARS-CoV-2 CV19 mRNA-1273 bival stephie vax NASIM ACOSTA MD [facility] 09-28-2022 SARSCoV2 (CV19)mRNA-1273(6y+ bival stephie MUKESH ANDERSEN INTERNIST MEDICAL DOCTOR MD-TISSUE PACKER [facility] 10-03-2021 influenza virus vacc ine, unspecified formulation DR DIDIER MARCELO MD [facility] 09-28-2021 SARS-CoV-2 mRNA (tozinameran) vaccine DR DIDIER MARCELO MD [facility] 02-10-2021 SARS-CoV-2 mRNA (tozinameran) vaccine DR DIDIER MARCELO MD [facility] 01-16-2021 SARS-CoV-2 mRNA (tozinameran) vaccine DR DIDIER MARCELO MD [facility] 10-14-2020 influenza virus vacc ine, unspecified formulation DR DIDIER MARCELO MD [facility] Payers Date Payer Category Payer Medicaid [id number] 2023 Medicare [id number] 2022 Unknown [id number] 1955 Unknown [id number] 2.16.8 [id number]. 1954 Unknown [id number] 2.16.8 40.1.516208.3.579.2. 1954 Unknown [id number] 2.16.8 40.1.860431.3.579.2. 1954 Unknown [id number] 2.16.8 40.1.247288.3.579.2.627 1954 Unknown [id number] 2.16.8 40.1.514032.3.579.2. 1954 Unknown [id number] 2.16.8 40.1.110189.3.579.2. 1954 Unknown [id number] 2.16.8 40.1.750130.3.579.2. 1954 Unknown [id number] 2.16.8 40.1.967864.3.579.2.627 1954 Unknown [id number] 2.16.8 40.1.296857.3.579.2.651 1954 Unknown [id number] 2.16.8 40.1.273516.3.579.2.651 1954 Unknown [id number] 2.16.8 40.1.717452.3.579.2.651 1954 Unknown [id number] 2.16.8 40.1.185448.3.579.2.651 1954 Unknown [id number] 2.16.84 0.1.698729.3.579.2.651 1954 Unknown [id number] 2.16.84 0.1.333154.3.579.2.651 Social History Date Type Detail Facility Start: 01-09-2020 Tobacco smoking status Ex-smoker (fi nding) [facility] Functional Status Date Assessment Result Facility 10-28-2022 Functional Status Repositions se lf, Resting, Watching TV [facility] 10-28-2022 Functional Status Room check performed [facility] 10-28-2022 Functional Status [facility] 10-28-2022 Functional Status [facility] 10-28-2022 Functional Status [facility] 10-28-2022 Functional Status [facility] 10-27-2022 Functional Status Skin Care Prev entative Intervention(s) padded oxygen tubing [facility] 10-27-2022 Functional Status SCD On/Re-applied bilat eral knee high [facility] 10-27-2022 Functional Status 80 [facility] 10-27-2022 Functional Status CHG bath [facility] 10-27-2022 Functional Status [facility] 10-27-2022 Functional Status [facility] 10-26-2022 Functional Status [facility] 10-26-2022 Functional Status [facility] 10-26-2022 Functional Status Driving, Personal ADL, Work [facility] 10-26-2022 Functional Status [facility] 10-26-2022 Functional Status NPO Status ice chips an d sips taken [facility] 10-26-2022 Functional Status [facility] 10-26-2022 Functional Status Done [facility] 10-26-2022 Functional Status [facility] 10-25-2022 Functional Status [facility] 10-25-2022 Functional Status [facility] 10-25-2022 Functional Status [facility] 10-24-2022 Functional Status [facility] 10-23-2022 Functional Status Preventative Foam Drsg Location coccyx [facility] 10-23-2022 Functional Status [facility] 07-14-2022 Functional Status Up ad moses [facility] 07-14-2022 Functional Status [facility] 07-14-2022 Functional Status Patient Identi fied Identification band, Verbal [facility] 07-14-2022 Functional Status Maintained [facility] Mental Status Date Assessment Result Facility 10-28-2022 Mental Status Orientation Oriented x 4 [facility] 10-28-2022 Mental Status [facility] 10-28-[address] [facility] 10-27-2022 Mental Status Orientation Assessment Orie nted x 4 [facility] 10-27-2022 Mental [address] [facility] 10-27-[address] [facility] 07-14-2022 Mental Status Oriented x [address] [facility] 07-14-[address] [facility] Clinical Notes 07-14-2022 to 11-04-2022 LaboratoryRadiologyRadiologyRadiologyLaboratoryRadiologyLaboratoryRadiology [...] Sign Date: 11/04/2022 1:06:31 PM Ordering Provider: [facility] 11-04-2022 Note ORIGINAL HISTORY: Pleural effusion [...] Sign Date: 11/04/2022 1:06:31 PM Ordering Provider: [facility] 10-28-2022 Hospital Discharg e instructions Patient [...] 11/07/2018 Elsevier Patient Education 2020 Elsevier Inc. 10/28/2022 14:12:46 Insulin Injection Instructions, Using [...] and water are not available, use hand master ship. 2.Before you give yourself an insulin injection, [...] plastic cover from the needle. 11.Follow the solderer dipper's instructions to prime the insulin pen with [...] have questions? Where to find more information [place] Diabetes Association (ADA): www.diabetes.org [place] Association of Diabetes Educators (AADE) Patient Resources: [...] 12/11/2016 Document Revised: 11/28/2018 Document Reviewed: 12/11/2016 [employer] Patient Education 2020 [employer]. 10/28/2022 14:12:46 Blood Glucose Monitoring, Adult Blood [...] 11/10/2004 Document Revised: 09/01/2019 Document Reviewed: 04/19/2017 [employer] Patient Education 2020 [employer]. 10/28/2022 14:12:46 8- Open Heart Surgery (Bypass [...] diet and you may take a mild xvnz-eal-jgztfoa laxative like Milk of Magnesia . CARDIAC [...] call your surgeon or your heart doctor. [facility] also has a free stop smoking program called Give it Up and if you want to attend, please call [phone] Call the Surgeon If your incisions are [...] in your calf. Call the Heart Doctor (Administrative Office Clerk) If your heart beats are irregular or [...] be having a heart attack. Please dial [phone]-- immediately. Follow Up Care 09/23/2022 14:49:19 With:JOSE A WARNER, Infectious Disease, Infectious Disease Group Address: [address] [place] [address] [address] [facility] [address]- [phone] Business (1) When:11/06/2022 16:00:00 Comments:KEEP THIS PREVIOUSLY SCHEDULED APPOINTMENT With:CHAYO HUFF PA-C Address: [address] [place] [address] [address] [facility] [place] [address]- [phone] When:11/24/2022 11:00:00 With:MUKESH ANDERSEN Address: [address] [facility] [address] [place] [address] [facility] [place] [address]- Business (1) When:11/04/2022 14:00:00 Comments:Please arrive one hour prior to appointment to have a chest x ray done in the radiology department, [facility] With:[facility] has been set up for you. please call [phone] or After Hours [phone] for questions regarding your equipment. Address: When:1-2 days With:[facility] to follow, Will call to schedule first visit Address: [place], [place] [phone] When:1-2 days Comments:Home care Nurse With:Rosa Maria TERAN Nurse [employer] Hostess, will call you and/or your family after your release from the hospital. Office Hours: Wednesday thru Wednesday 7:30am - 4pm Address: When:1-2 days With:Cardiac Rehab- [facility] Address: [facility] [address] [place] [address]- When: Unknown Comments:The Cardiac Rehab department will call you to schedule you for phase 2. We left you a brochure with information about cardiac rehab. If you have any questions please call [phone]. With:WILLIAM VIERA MD, [facility], Surgery, Vascular Surgeons Address: [address] [place] [address] [address] [facility] [place] [address] [phone] When: Unknown Comments:Follow-up as scheduled [facility] 10-28-2022 Note Discharge Instructions Thank you for allowing [facility] to assist you with your healthcare needs. The following is important discharge information regarding your hospital visit. Your Care Team JOSE A WARNER MD Your Diagnosis CAD IN KASAAN ARTERY (CORONARY ARTERY DISEASE) (Renamed from CAD (CORONARY ARTERY DISEASE), KASAAN CORONARY ARTERY) S/P CABG x1 GUTIERREZ to [...] InformationCTS OV Post Op 11/04/2022 02:00 PM MUKESH HARLEY APRN-[place] [facility] CV OV 11/24/2022 11:00 AM CHAYO CINTRON PA-C [facility] Follow Up Appointments Follow Up with CHAYO HUFF PA-C When 11/24/2022 11:00 AM EST Where: [address] [facility] [place] [address]- [phone] Follow Up with JOSE A WARNER, Infectious Disease, Infectious Disease Group When 11/06/2022 04:00 PM EST Why: KEEP THIS PREVIOUSLY SCHEDULED APPOINTMENT Where: [address] [facility] [address]- [phone] Business (1) Follow Up with MUKESH ANDERSEN When 11/04/2022 02:00 PM EST Why: Please arrive one hour prior to appointment to have a chest x ray done in the radiology department, [facility] Where: [address] [place] [address] [facility] [place] [address]- Business (1) Follow Up with [facility] has been set up for you. please call [phone] or After Hours [phone] for questions regarding your equipment. When Within 1-2 days Where: Follow Up with [facility] to follow, Will call to schedule first visit When Within 1-2 days Why: Home care Nurse Where: [place], [place] [phone] Follow Up with Rosa Maria TERAN Nurse [employer]ear[employer] Hostess, will call you and/or your family after your release from the hospital. Office Hours: Wednesday thru Wednesday 7:30am - 4pm When Within 1-2 days Where: Follow Up with Cardiac Rehab- [facility] When Why: The Cardiac Rehab department will call you to schedule you for phase 2. We left you a brochure with information about cardiac rehab. If you have any questions please call [phone]. Where: [facility] [address] [place] [address]- Follow Up with WILLIAM VIERA MD, [facility], Surgery, Vascular Surgeons When Why: Follow-up as scheduled Where: [address] [facility] [address] [facility] [place] [address] [phone] The Following Activity and Diet Have Been [...] x ray done on 11/04 at [facility] radiology department one hour prior to appointment, [...] with meals Duration: 6 week(s) Pickup at [facility] Start 11/05/22 in the AM. New amiodarone (amiodarone 200 mg oral tablet) 2 tab(s) by mouth Twice daily with meals Duration: 7 Days Pickup at [facility] Start 10/29/22 in the AM. New atorvastatin (atorvastatin 40 mg oral tablet) 1 tab(s) by mouth Once a day Refills: 1 Pickup at [place] [address] Take this afternoon. New bumetanide (bumetanide 2 mg oral tablet) 1 tab(s) by mouth Once a day Duration: 7 Days Pickup at [place] [address] Start 10/29/22 in the AM. New clopidogrel (Plavix 75 mg oral tablet) 1 tab(s) by mouth Once a day Refills: 1 Pickup at [place] [address] Start 10/29/22 in the AM. New insulin degludec (Tresiba FlexTouch 100 units/ mL 3 mL subcutaneous solution) 20 unit(s) Subcutaneous Once a day Refills: 2 Pickup at [place] [address] Start 10/28/22 in the afternoon. New levothyroxine (levothyroxine 50 mcg (0.05 mg) oral tablet) 1 tab(s) by mouth Once a day before a meal Refills: 1 Pickup at [place] [address] Start 10/29/22 in the AM. New multivitamin with iron (Multiple Vitamins with Folic Acid and Iron oral tablet) 1 tab(s) by mouth Once a day Pickup at [place] [address] Start 10/29/22 in the AM. New potassium chloride (potassium chloride 20 mEq oral tablet, extended release) 1 tab(s) by mouth Two (2) times a day Duration: 7 Days Pickup at [place] [address] Start 10/29/22 in the AM. Changed lisinopril (lisinopril 2.5 mg oral tablet) 1 tab(s) by mouth Two (2) times a day Pickup at [place] [address] Start 10/28/22 in the PM. Changed metoprolol (Metoprolol Tartrate 50 mg oral tablet) 1 tab(s) by mouth Two (2) times a day Pickup at [place] [address] Start 10/28/22 in the PM Unchanged aspirin [...] as needed for chest pain Pharmacy Information [facility]: [address] [place], [place] [phone] What How Much When Comments Stop Taking [...] Document Reviewed: 11/07/2018 Elsevier Patient Education 2020 [employer] Insulin Injection Instructions, Using Insulin Pens, [...] and water are not available, use hand master ship. 2. Before you give yourself an insulin [...] cover from the needle. 11. Follow the solderer dipper's instructions to prime the insulin pen with [...] have questions? Where to find more information [place] [employer] (ADA): www.diabetes.org [place] [employer] of Diabetes Educators (AADE) Patient Resources: [...] 12/11/2016 Document Revised: 11/28/2018 Document Reviewed: 12/11/2016 [employer] Patient Education 2020 [employer]OnKey. Blood Glucose Monitoring, Adult Monitoring your blood [...] 11/10/2004 Document Revised: 09/01/2019 Document Reviewed: 04/19/2017 [employer] Patient Education 2020 [employer] Coronary Artery Bypass Grafting Coronary artery bypass [...] thinners, vitamins, herbs, eye drops, creams, and hdgb-kdd-rloxlzi medicines. Any problems you or family members [...] procedure stop drinking clear liquids. Medicines Take tkvc-lez-xdwnnjk and prescription medicines only as told by [...] tells you to take them. ? Taking gxdy-aer-sceyyis medicines, vitamins, herbs, and supplements. General instructions [...] 08/18/2006 Document Revised: 07/18/2019 Document Reviewed: 07/18/2019 [employer]erts! Patient Education 2020 [employer] Additional Information VACCINATE! IT SAVES LIVES! Members of the community who have not yet received the COVID-19 vaccine and would like to receive it can visit one of [facility] vaccine clinics. There are many vaccine clinic locations within the [facility]. For locations and available times, please visit [email or web address] [email or web address] It is important to note that some COVID mobile vaccine clinics are held outdoors and may be canceled in rainy or stormy conditions. To learn more about pediatric vaccinations (ages 5-11), we invite you to visit the [facility] webpage. https://[email or web address].[email or web address]/p [email or web address]-Vjqnp-Rbqqughuszm-Freq hnxigc-Tvqpl-Ocmjggntl.html To learn more about the COVID-19 vaccine, we invite you to visit the [facility] website for a list of frequently asked questions. [email or web address] ovq-[email or web address]/rbjhr-Pgixurp-W requently_[email or web address]-Questions.pdf [facility] Patient Portal Access Instructions: Stay connected with your healthcare team and access your personal medical information anytime with the [facility] Patient Portal.If you would like a full copy of your medical records, please contact the [facility] Medical Records Department, Wednesday through Wednesday between 8a.m. and 4:30p.m. Please follow the directions below to access the portal: 1.Access the email account you provided upon registration to the hospital.2.Look for an invitation email from [facility].3.Open the email and access the invitation link: Accept Invitation to [facility]4.Fill in the required olmstead to create your account. Sign into www.Skimo TV with your username and password that you [...] you will allow to register on the [facility] Patient Portal for access to your information. You can also access the [facility] Patient Portal on the [employer] david. Simply click on Health Records under Health Data and then click on the ClientShow logo. HOW TO SAFELY DISPOSE OF PRESCRIPTION [...] Call your local pharmacy or go to [email or web address]/[email or web address] to find one close to you.3.Make use of household items: Use cat litter or old coffee grounds to dispose medications if other options are not available. Mix your drugs with these household products, seal them in an airtight container and throw it into the garbage. Call [facility]: [phone] to be sure your drugs can be [...] aware that I should contact my doctor. Patient/Practice Architect Signature: Date/Time: Relationship to Patient: Witness Name/Signature: Date/Time: [facility] 10-28-2022 Endocrinology Progress note Date of [...] post op day Assessment/Plan 1. 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 lashaun Quiles in [place]. Plan of care was discussed with patient [...] qDay, # 15 mL, 2 Refill(s), Pharmacy: [facility], 184, cm, 10/23/22 10:10:00 EST, Height Time Spent 35 Digitally Signed by ISABEL THOMPSON MD on 10/28/2022 02:01 PM [facility] 10-28-2022 Discharge summary Date of Service 10/28/2022 Discharge Diagnosis 1. CAD IN KASAAN ARTERY (CORONARY ARTERY DISEASE) (Renamed from CAD (CORONARY ARTERY DISEASE), KASAAN CORONARY ARTERY) S/P CABG x1 GUTIERREZ to [...] (Z92.3 - ICD-10-CM) Atherosclerotic heart disease of [place] coronary artery without angina pectoris (I25.10 - [...] x ray done on 11/04 at the [facility] radiology department one hour prior to appointment, 10/28/22 11:05:00 EST Ordered: Discharge Wound Care,Dressing Type: Open to Air, Sternum, Shower daily. Wash incisions with soap and water. Keep clean and dry, 10/28/22 11:05:00 EST Ordered: Metoprolol Tartrate 50 mg oral tablet,Dose : 50 mg = 1 tab(s), Oral, BID, # 60 tab(s), 1 Refill(s), Pharmacy: [facility], 184, cm, 10/23/22 10:10:00 EST, Height Ordered: Multiple Vitamins with Folic Acid and Iron oral tablet,Dose = 1 tab(s), Oral, qDay, # 30 tab(s), 0 Refill(s), Pharmacy: [facility], 184, cm, 10/23/22 10:10:00 EST, Height Ordered: Plavix 75 mg oral tablet,Dose : 75 mg = 1 tab(s), Oral, qDay, # 30 tab(s), 1 Refill(s), Pharmacy: [facility], 184, cm, 10/23/22 10:10:00 EST, Height Ordered: Tylenol 325 mg oral capsule,Dose : 650 mg =, Oral, q4h, PRN Pain, scale 1-6, 0 Refill(s) Ordered: amiodarone 200 mg oral tablet,Dose : 400 mg = 2 tab(s), Oral, BIDM, # 28 tab(s), 0 Refill(s), Pharmacy: [facility], 184, cm, 10/23/22 10:10:00 EST, Height Ordered: amiodarone 200 mg oral tablet,Dose : 200 mg = 1 tab(s), Oral, BIDM, # 84 tab(s), 0 Refill(s), Pharmacy: [place] [id number], 184, , 10/23/22 10:10:00 EST, Height Ordered: atorvastatin 40 mg oral tablet,Dose : 40 mg = 1 tab(s), Oral, qDay, # 30 tab(s), 1 Refill(s), Pharmacy: [place] [address], 184, , 10/23/22 10:10:00 EST, Height Ordered: bumetanide 2 mg oral tablet,Dose : 2 mg = 1 tab(s), Oral, qDay, # 7 tab(s), 0 Refill(s), Pharmacy: [place] [address], 184, , 10/23/22 10:10:00 EST, Height Ordered: levothyroxine 50 mcg (0.05 mg) oral tablet,Dose : 50 mcg = 1 tab(s), Oral, qDayAC, # 30 tab(s), 1 Refill(s), Pharmacy: [place] [address], [facility], , 10/23/22 10:10:00 EST, Height Ordered: lisinopril 2.5 mg oral tablet,Dose : 2.5 mg = 1 tab(s), Oral, BID, # 60 tab(s), 1 Refill(s), Pharmacy: [place] [address], [facility], , 10/23/22 10:10:00 EST, Height Ordered: potassium chloride 20 mEq oral tablet, extended release,Dose : 20 mEq = 1 tab(s), Oral, BID, # 14 tab(s), 0 Refill(s), Pharmacy: [place] [address], [facility], , 10/23/22 10:10:00 EST, Height Hospital Course This [...] 6 weeks and to maintain Plavix therapy. [facility] endocrinology following. Newly diagnosed hypothyroidism. Currently [...] creatinine 0.85 Allergies NKA Consults Consult to [facility] Endocrinology - Ordered -- 10/23/22 10:40:00 EST, [...] 11/24/2022 11:00 AM EST Where: [address] [facility] [place] [address]- [phone] Follow Up with JOSE A WARNER, Infectious Disease, Infectious Disease Group When 11/06/2022 04:00 PM EST Why: KEEP THIS PREVIOUSLY SCHEDULED APPOINTMENT Where: [address] [facility] [address] [facility] [address] [phone] Business (1) Follow Up with MUKESH ANDERSEN When 11/04/2022 02:00 PM EST Why: Please arrive one hour prior to appointment to have a chest x ray done in the radiology department, [facility] Where: [address] [facility] [address] [place] [address] [facility] [place] [address]- Business (1) Follow Up with [facility] has been set up for you. please call [phone] or After Hours [phone] for questions regarding your equipment. When Within 1-2 days Where: Follow Up with [facility] to follow, Will call to schedule first visit When Within 1-2 days Why: Home care Nurse Where: [place], [place] [phone] Follow Up with Rosa Maria RN Nurse Tearoom Hostess, will call you and/or your family after your release from the hospital. Office Hours: Wednesday thru Wednesday 7:30am - 4pm When Within 1-2 days Where: Follow Up with Cardiac Rehab- [facility] When Why: The Cardiac Rehab department will call you to schedule you for phase 2. We left you a brochure with information about cardiac rehab. If you have any questions please call [phone]. Where: [facility] [address] [place] [address]- Follow Up with WILLIAM VIERA MD, [facility], Surgery, Vascular Surgeons When Why: Follow-up as scheduled Where: [address] [facility] [place] [address] [phone] Follow Up Labs/Studies Discharge Labs Discharge Outpatient Labwork - Ordered -- bmp, cbc, cabg and diurtic therapy, Results Notify to: NASIM ACOSTA MD, Please have home health care draw on 11/03, 10/28/22 11:05:00 EST Discharge Studies Discharge Outpatient Radiology - Ordered -- PA/Lat CXR, pleural effusion, Results Notify to: NASIM ACOSTA MD, Please have chest x ray done on 11/04 at the main campus [facility] radiology department one hour prior to appointment, [...] by ARLET COOMBS on 10/28/2022 05:41 PM [facility] 10-28-2022 Note ORIGINAL EXAMINATION: TWO XRAY [...] Sign Date: 10/28/2022 7:34:17 AM Ordering Provider: [facility] 10-28-2022 Vascular surgery Progress note Date [...] post op day Assessment/Plan 1. CAD IN KASAAN ARTERY (CORONARY ARTERY DISEASE) (Renamed from CAD (CORONARY ARTERY DISEASE), KASAAN CORONARY ARTERY) S/P CABG x1 GUTIERREZ to [...] WILLIAM VIERA MD on 10/28/2022 06:53 AM [facility] 10-28-2022 Note ORIGINAL EXAMINATION: TWO XRAY [...] Sign Date: 10/28/2022 7:34:17 AM Ordering Provider: [facility] 10-27-2022 Note ADDENDUM ADDENDUM: CTA head [...] 10/27/2022 1:59:25 PM Ordering Provider: WILLIAM VIERA [facility] 10-27-2022 Note ADDENDUM ADDENDUM: CTA head [...] Sign Date: 10/27/2022 1:59:25 PM Ordering Provider: [facility] 10-27-2022 Endocrinology Progress note Date of [...] post op day Assessment/Plan 1. CAD IN KASAAN ARTERY (CORONARY ARTERY DISEASE) (Renamed from CAD (CORONARY ARTERY DISEASE), KASAAN CORONARY ARTERY) S/P CABG x1 GUTIERREZ to [...] by NASRA PICKENS on 10/27/2022 05:18 PM [facility] 10-27-2022 Note Date of Service 10/27/2022 [...] post op day Assessment/Plan 1. CAD IN KASAAN ARTERY (CORONARY ARTERY DISEASE) (Renamed from CAD (CORONARY ARTERY DISEASE), KASAAN CORONARY ARTERY) S/P CABG x1 GUTIERREZ to LAD off pump 10/23/2022 EF 61% Normal sinus rhythm. Heart rate ranging 78-91. Blood pressures ranging 109/67-136/83. On aspirin, metoprolol, atorvastatin. Start amiodarone 400 mg twice daily. 2. DIABETES MELLITUS (Renamed from DIABETES) HgbA1C 12 Followed by [facility] inpatient endocrinology. Glucoses ranging 100-148. On Humalog [...] by AMOS ALVARADO on 10/27/2022 09:53 AM [facility] 10-27-2022 Vascular surgery Progress note Date [...] qualifying data available. Assessment/Plan 1. CAD IN KASAAN ARTERY (CORONARY ARTERY DISEASE) (Renamed from CAD (CORONARY ARTERY DISEASE), KASAAN CORONARY ARTERY) S/P CABG x1 GUTIERREZ to [...] WILLIAM VIERA MD on 10/27/2022 07:15 AM [facility] 10-27-2022 Note ORIGINAL EXAMINATION: TWO XRAY [...] Sign Date: 10/27/2022 7:05:17 AM Ordering Provider: AMOS ALVARADO [facility] 10-27-2022 Note ORIGINAL EXAMINATION: TWO XRAY [...] Sign Date: 10/27/2022 7:05:17 AM Ordering Provider: AMOS HUBERXON [facility] 10-26-2022 Anesthesiology Consult note Patient: DIMITRY [...] No complications post-anesthesia.. Digitally Signed by DENICE FYO MD on 10/26/2022 04:00 PM [facility] 10-26-2022 Endocrinology Progress note Date of [...] qualifying data available. Assessment/Plan 1. CAD IN KASAAN ARTERY (CORONARY ARTERY DISEASE) (Renamed from CAD (CORONARY ARTERY DISEASE), KASAAN CORONARY ARTERY) S/P CABG x1 GUTIERREZ to [...] by NASRA PICKENS on 10/26/2022 04:49 PM [facility] 10-26-2022 Note Date of Service 10/26/2022 [...] both lung bases. Assessment/Plan 1. CAD IN KASAAN ARTERY (CORONARY ARTERY DISEASE) (Renamed from CAD (CORONARY ARTERY DISEASE), KASAAN CORONARY ARTERY) S/P CABG x1 GUTIERREZ to LAD off pump 10/23/2022 EF 61% ASA, metoprolol, atorvastatin 2. DIABETES MELLITUS (Renamed from DIABETES) HgbA1C 12 Glucose 61-129, [facility] end[facility] following 3. HYPERLIPIDEMIA (Renamed from [...] Dr. Acosta Digitally Signed by LIA GALAN APRN-HOUSTON on 10/26/2022 12:21 PM [facility] 10-26-2022 Note ORIGINAL Images acquired, not reported on this accession number. [facility] 10-26-2022 Note ORIGINAL Images acquired, not reported on this accession number. [facility] 10-26-2022 Anesthesiology Consult note Patient: DIMITRY [...] mg, 1 tab(s), Oral, qDayAC Sore Throat [place]: 1 spray(s), Topical, q1h, PRN: Sore throat [...] list: Medical Cardiac catheterization / SNOMED CT 78013009 / Confirmed Carotid stenosis / SNOMED CT 534482987 / Confirmed ABNORMAL NUCLEAR STRESS TEST (Renamed from ABNORMAL CLINICAL FINDING) / SNOMED CT 7134894578 / Confirmed CAD IN KASAAN ARTERY (CORONARY ARTERY DISEASE) (Renamed from CAD (CORONARY ARTERY DISEASE), KASAAN CORONARY ARTERY) / SNOMED CT 3340805409 / Confirmed DIABETES MELLITUS (Renamed from DIABETES) / SNOMED CT 585061561 / Confirmed HYPERTENSION, UNSPECIFIED (Renamed from ESSENTIAL (PRIMARY) HYPERTENSION) / SNOMED CT 01859515 / Confirmed History of cerebral palsy / SNOMED CT 671853988 / Confirmed HISTORY OF THROAT CANCER / SNOMED CT 7696001395 / Confirmed HYPERLIPIDEMIA (Renamed from HLD (HYPERLIPIDEMIA)) / SNOMED CT 59811076 / Confirmed INCREASED BMI (Renamed from OVERWEIGHT) / SNOMED CT 879618344 / Confirmed Preoperative clearance / SNOMED CT 911705462 / Confirmed, Active Problems (13) ABNORMAL NUCLEAR STRESS TEST (Renamed from ABNORMAL CLINICAL FINDING) CAD IN KASAAN ARTERY (CORONARY ARTERY DISEASE) (Renamed from CAD (CORONARY ARTERY DISEASE), KASAAN C Cardiac catheterization Carotid stenosis DIABETES MELLITUS (Renamed from DIABETES) History of cerebral palsy HISTORY OF THROAT CANCER HYPERLIPIDEMIA (Renamed from HLD (HYPERLIPIDEMIA)) HYPERTENSION, UNSPECIFIED (Renamed from ESSENTIAL (PRIMARY) HYPERTENSION) INCREASED BMI (Renamed from OVERWEIGHT) Long-term use of aspirin therapy Preoperative clearance Stented coronary artery Histories Past Medical History: Resolved NUMBNESS AND TINGLING IN LEFT ARM ([id number]): Resolved. Family History: Heart disease Mother Heart attack Mother Diabetes Father Brother Procedure history: CABG x 1 - Coronary artery bypass graft x 1 ([id number]) on 10/23/2022 at 67 Years. Comments: 10/23/2022 20:50 Zahra Holder RN Off pump, using the left internal mammary artery to the LAD. Insertion of temporary pacing wires. Cardiac catheterization ([id number]) on 07/14/2022 at 67 Years. Comments: 08/03/2022 [...] is a 100% chronic total occlusion. Miscellaneous ([id number]) in the month of 03/2021 at 65 Years. Comments: 02/11/2022 14:14 [place] - Mckenna Quiles LPN Surgery on prostate. pt not sure of name or procedure. Coronary angioplasty ([id number]) on 08/04/2013 at 58 Years. Stent ([id number]) on 08/04/2013 at 58 Years. Comments: 01/09/2020 16:03 EST - Aslhey Sanchez LPN small vessel disease, chronic total occlusion RCA Drug-eluding stent to SECOND MARGINAL BRANCH TURP - Transurethral resection of prostate ([id number]). Tonsillectomy and adenoidectomy ([id number]). Social History Social & Psychosocial Habits Alcohol [...] Oral36.8 DegC (OCT 26 06:32) Heart Rate Aryuebtww26 bpm (OCT 26 06:) Resp Rate 18 br/min (OCT 26:32) NQO775 mmHg (OCT 26:) DBP70 mmHg (OCT 26:) Measurements from flowsheet : Measurements 10/26/2022 5:28 [...] On and Limits Checked Nail Bed Color [place] Capillary Refill < 2 seconds Heart Sounds ICU S1S2 Heart Rhythm Regular Dorsalis Pedis Pulse, Left 2+ Normal Dorsalis Pedis Pulse, Right 2+ Normal Radial Pulse, Left 2+ Normal Radial Pulse, Right 2+ Normal Cardiac Rhythm Sinus rhythm Monitoring Lead II, V1/MCL1 AK Interval 0.15 second(s) QRS Duration 0.12 second(s) [...] intact Skin Turgor Elastic Mucous Membrane Color [place] Mucous Membrane Description Moist Sensory Perception Roshan [...] Alert Aspiration Risk None Eye Opening Response Bunn Spontaneously Best Motor Response Bunn Obeys simple commands Best Verbal Response Abundio Oriented Bunn Coma Score 15 NILO Yes Left Pupil [...] Transport Mode Order Detail MTT with Monitor Can Repairer Details Form Can Repairer Details Form 10/26/2022 0:21 EST Pain Scale [...] On and Limits Checked Nail Bed Color [place] Capillary Refill < 2 seconds Heart Sounds ICU S1S2 Heart Rhythm Regular Dorsalis Pedis Pulse, Left 2+ Normal Dorsalis Pedis Pulse, Right 2+ Normal Posttibial Pulse, Left 2+ Normal Posttibial Pulse, Right 2+ Normal Radial Pulse, Left 2+ Normal Radial Pulse, Right 2+ Normal Generalized Edema Rating: None Cardiac Rhythm Sinus rhythm Monitoring Lead II, V1/MCL1 AK Interval 0.17 second(s) QRS Duration 0.08 second(s) [...] intact Skin Turgor Elastic Mucous Membrane Color [place] Mucous Membrane Description Moist Chest Midline Skin [...] evident Teaching Method Explanation Preferred Spoken Language Amharic CV Surgery Activity Education Out of bed [...] Transport Mode Order Detail MTT with Monitor Can Repairer Details Form Can Repairer Details Form 10/25/2022 17:33 EST Blood Glucose, Capillary 129 mg/dL HI Apical Heart Rate 87 bpm Heart Rate Monitored 86 bpm Systolic Blood Pressure Non-Invasive 120 mmHg Diastolic Blood Pressure Non-Invasive 79 mmHg Mean Arterial Pressure (NBP) 92 mmHg Tolerating Oral Intake Yes Feeding Assistance [facility] 10-26-2022 Note ORIGINAL EXAMINATION: TWO XRAY [...] Sign Date: 10/26/2022 5:01:35 AM Ordering Provider: [facility] 10-26-2022 Note ORIGINAL EXAMINATION: TWO XRAY [...] Sign Date: 10/26/2022 5:01:35 AM Ordering Provider: [facility] 10-25-2022 Note Date of Service 10/25/2022 [...] post op day Assessment/Plan 1. CAD IN KASAAN ARTERY (CORONARY ARTERY DISEASE) (Renamed from CAD (CORONARY ARTERY DISEASE), KASAAN CORONARY ARTERY) S/P CABG x1 GUTIERREZ to [...] (Renamed from DIABETES) HgbA1C 12 Followed by [facility] inpatient endocrinology. Glucoses ranging 84 to 128. On [...] by AMOS ALVARADO on 10/25/2022 10:21 AM [facility] 10-25-2022 Note ORIGINAL EXAMINATION: ONE XRAY [...] Sign Date: 10/25/2022 6:22:02 AM Ordering Provider: AMOS ALVARADO [facility] 10-25-2022 Note ORIGINAL EXAMINATION: ONE XRAY [...] Sign Date: 10/25/2022 6:22:02 AM Ordering Provider: AMOS ALVARADO [facility] 10-24-2022 Note ORIGINAL EXAMINATION: ONE XRAY [...] 10/24/2022 8:20:24 AM Ordering Provider: NASIM ACOSTA [facility] 10-24-2022 Note Date of Service 10/24/2022 Chief [...] qualifying data available. Assessment/Plan 1. CAD IN KASAAN ARTERY (CORONARY ARTERY DISEASE) (Renamed from CAD (CORONARY ARTERY DISEASE), KASAAN CORONARY ARTERY) S/P CABG x1 GUTIERREZ to LAD off pump 10/23/2022 EF 61% Normal sinus rhythm. Heart rate ranging 80-92. Blood pressures ranging 118/67-145/83. Currently on nitroprusside drip at 0.3 mcg/kg/min. On aspirin. 2. DIABETES MELLITUS (Renamed from DIABETES) HgbA1C 12 Followed by [facility] inpatient endocrinology. Glucoses ranging 97-206. Currently on insulin drip at 4 units/h. 3. HYPERLIPIDEMIA (Renamed from HLD (HYPERLIPIDEMIA)) On atorvastatin. Patient was previously on simvastatin at home. 4. HYPERTENSION, UNSPECIFIED (Renamed from ESSENTIAL (PRIMARY) HYPERTENSION) Blood pressures ranging 118/67-140 5/83. Currently on nitroprusside drip at 0.3 mcg/kg/min.Patient [...] systolic blood pressure greater than 170 mm [place], may repeat in 30 minutes x 1 [...] by AMOS ALVARADO on 10/24/2022 10:31 AM [facility] 10-24-2022 Note ORIGINAL EXAMINATION: ONE XRAY [...] 10/24/2022 8:20:24 AM Ordering Provider: NASIM ACOSTA [facility] 10-23-2022 Endocrinology Consult note Date of [...] He has not seen our service previously. [facility] records reviewed with no previous A1c [...] Potassium Level: 4.1 Assessment/Plan 1. CAD IN KASAAN ARTERY (CORONARY ARTERY DISEASE) (Renamed from CAD (CORONARY ARTERY DISEASE), KASAAN CORONARY ARTERY) S/P CABG x1 GUTIERREZ to [...] (Renamed from ABNORMAL CLINICAL FINDING) CAD IN KASAAN ARTERY (CORONARY ARTERY DISEASE) (Renamed from CAD (CORONARY ARTERY DISEASE), KASAAN CORONARY ARTERY) Cardiac catheterization Carotid stenosis DIABETES [...] by NASRA PICKENS on 10/23/2022 04:23 PM [facility] 10-23-2022 Note ORIGINAL EXAMINATION: ONE XRAY [...] Sign Date: 10/23/2022 10:47:09 AM Ordering Provider: NASIM [facility] 10-23-2022 Note ORIGINAL EXAMINATION: ONE XRAY VIEW [...] Sign Date: 10/23/2022 10:47:09 AM Ordering Provider: [facility] 10-23-2022 Anesthesiology Consult note Patient: DIMITRY CAMARILLO [...] range of motion. Integumentary: Intact, Warm, Dry, [place]. Neurologic: Alert, Oriented. Assessment and Plan [place] [employer] of Anesthesiologists (ASA) physical status classification: [...] JERAMY SALDIVAR DO on 10/23/2022 06:55 AM [facility] 08-28-2022 Evaluation + Plan note Future Scheduled TestsBasic Metabolic Panel 08/28/22NM Myocardial Spect Rest/Stress 06/12/22 [facility] 07-14-2022 Cardiothoracic surgery Consult note Date [...] (Renamed from ABNORMAL CLINICAL FINDING) CAD IN KASAAN ARTERY (CORONARY ARTERY DISEASE) (Renamed from CAD (CORONARY ARTERY DISEASE), KASAAN CORONARY ARTERY) Cardiac catheterization DIABETES MELLITUS (Renamed [...] has received contrast, 1 EA, Miscellaneous, Unscheduled [place] 325- 5 mg oral tablet, 1 tab(s), [...] alcohol usage Denies drug usage 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 Digitally Signed by JEOVANNY CHAPIN on 07/14/2022 01:59 PM [facility] 07-14-2022 Nurse Progress note Cardio thoracic surgical ROUTE DELIVERY CLERK in to see pt, pt will get call for appt with Dr. Acosta Digitally Signed by Lou Wood RN on 07/14/2022 01:57 PM [facility] 07-14-2022 Summary of episod e note Discharge Instructions Thank you for allowing [facility] to assist you with your healthcare needs. The following is important discharge information regarding your hospital visit. Your Care Team JOSE A WARNER MD What to do next Scheduled Follow-Up Appointments Appointment Type When With Where Contact InformationCV OV 08/06/2022 01:00 PM EDT CHAYO HUFF PA-C [facility] Follow Up Appointments Follow Up with DIDIER MARCELO MD When 08/06/2022 09:00 AM EDT Why: THIS APPOINTMENT WILL BE WITH DIALLO BOYER Where: [address] [place] [address]- [phone] Allergies NKA Medications Please ask your primary doctor or pharmacist before taking any other medication not listed, including over the counter drugs, herbal medications, vitamins and or supplements as they may interact with your home medications. What How Much When Instructions Last Dose Changed metoprolol (metoprolol tartrate 100 mg oral tablet) 1 tab(s) by mouth Two (2) times a day Pickup at [facility] 1729 Unchanged aspirin (Aspir-Low 81 mg oral delayed [...] CLARIFIED) by mouth 400 mg Pharmacy Information [facility] 1724: [address], [place] [id number] [phone] Please take this list to your next [...] need to report the following to your u.s. revenue officer: Any draining or oozing from the site [...] 11/08/2006 Document Revised: 10/25/2013 Document Reviewed: 11/09/2014 ExitCare Patient Information 2015 [employer]. This information is not intended to replace [...] until you are awake and alert. Take acsj-dek-nxosrbi and prescription medicines only as told by [...] 08/29/2014 Document Revised: 10/21/2018 Document Reviewed: 02/27/2017 ElseClerts! Patient Education 2020 Elsevier Inc. Additional Information VACCINATE! IT SAVES LIVES! Members of the community who have not yet received the COVID-19 vaccine and would like to receive it can visit one of [facility] vaccine clinics. There are many vaccine clinic locations within the [facility]. For locations and available times, please visit [email or web address].o hio.gov/. It is important to note that some COVID mobile vaccine clinics are held outdoors and may be canceled in rainy or stormy conditions. To learn more about pediatric vaccinations (ages 5-11), we invite you to visit the [facility] webpage. [email or web address]://www.[email or web address].[email or web address]/p [email or web address]-Isaeothxtqe-Freq ipbays-Koadj-Glgycdcqk.html To learn more about the COVID-19 vaccine, we invite you to visit the [facility] website for a list of frequently asked questions. [email or web address] [email or web address]-[email or web address]-[email or web address]-J requently_[email or web address]-Questions.pdf [facility] Patient Portal Access Instructions: Stay connected with your healthcare team and access your personal medical information anytime with the [facility] Patient Portal.If you would like a full copy of your medical records, please contact the [facility] Medical Records Department, Wednesday through Wednesday between 8a.m. and 4:30p.m. Please follow the directions below to access the portal: 1.Access the email account you provided upon registration to the [facility].2.Look for an invitation email from [facility].3.Open the email and access the invitation link: Accept Invitation to [facility]4.Fill in the required olmstead to create your account. Sign into www.[email or web address] TV with your username and password that you [...] you will allow to register on the [facility] Patient Portal for access to your information. You can also access the [facility] Patient Portal on the [employer] david. Simply click on Health Records under Health Data and then click on the ClientShow logo. HOW TO SAFELY DISPOSE OF PRESCRIPTION [...] Call your local pharmacy or go to [email or web address].Bizpora/[email or web address] to find one close to you.3.Make use of household items: Use cat litter or old coffee grounds to dispose medications if other options are not available. Mix your drugs with these household products, seal them in an airtight container and throw it into the garbage. Call [facility]: [phone] to be sure your drugs can be [...] aware that I should contact my doctor. Patient/Practice Architect Signature: Date/Time: Relationship to Patient: Witness Name/Signature: Date/Time: [facility] 07-14-2022 Hospital Discharg e instructions Patient [...] need to report the following to your u.s. revenue officer: Any draining or oozing from the site [...] 11/08/2006 Document Revised: 10/25/2013 Document Reviewed: 11/09/2014 ExitCare Patient Information 2015 [employer]. This information is not intended to replace [...] until you are awake and alert. Take ahsv-rpb-zfwcztb and prescription medicines only as told by [...] 08/29/2014 Document Revised: 10/21/2018 Document Reviewed: 02/27/2017 [employer] Patient Education 2020 LifeOnKey. Follow Up Care 07/03/2022 11:24:19 With:JOSE A WARNER MD, Infectious Disease, Infectious Disease Group Address: [address] [place] [address] [address] [facility] [address]- [phone] When: Unknown Comments:Call office for an appointment to evaluate blood sugar control/managementHgb A1C 14.8% With:NASIM ACOSTA MD, Thoracic Service, Vascular Service Address: [address] [place] [address] [address] [facility] [place] [address]- [phone] When: Unknown Comments:The office will call you for your pre testing and office appointmentStop taking CoQ10 and Cinnamon supplements With:DIDIER MARCELO MD Address: [address] [facility] [address] [facility] Heart and Vascular [facility] [place] [address]- [phone] When:08/06/2022 09:00:00 Comments:THIS APPOINTMENT WILL BE WITH DIALLO BOYER [facility] Evaluation + Plan note Future Appointments Appointment Date:08/06/2022 01:00:00 PM Scheduled Provider:CHAYO HUFF PA-C Location:[facility] Appointment Type:CV OV Future Scheduled TestsNM Myocardial Spect Rest/Stress 06/12/22 [facility] Evaluation + Plan note Future Appointments Appointment Date:09/01/2022 02:30:00 PM Scheduled Provider:NASIM ACOSTA MD Location:CTS CAN Appointment Type:CTS OV Future Scheduled TestsCT Angiography Neck w/ Contrast 08/27/22NM Myocardial Spect Rest/Stress 06/12/22 [facility] Evaluation + Plan note Future Appointments Appointment Date:11/04/2022 02:00:00 PM Scheduled Provider:MUKESH ANDERSEN Location:[facility] Appointment Type:CTS OV Post Op Appointment Date:11/24/2022 11:00:00 AM Scheduled Provider:CHAYO HUFF PA-C Location:[facility] Appointment Type:CV OV Future Scheduled TestsBasic Metabolic Panel 08/28/22NM Myocardial Spect Rest/Stress 06/12/22 [facility] Evaluation + Plan note Future Appointments Appointment Date:11/24/2022 10:30:00 AM Scheduled Provider:MUKESH ANDERSEN Location:CTS [facility] Appointment Type:CTS OV Post Op Follow Up Appointment Date:11/24/2022 11:00:00 AM Scheduled Provider:CHAYO HUFF PA-C Location:[facility] Appointment Type:CV OV Future Scheduled TestsBasic Metabolic Panel 08/28/22Basic Metabolic Panel 11/04/22Complete Blood Count 11/04/22NM Myocardial Spect Rest/Stress 06/12/22XR Chest 2 Views (PA & Lateral) 11/25/22 [facility] Hospital course Narrative No data available for this section [facility] Hospital Discharge instructions No data available for this section [facility] Note DIDIER MARCELO MD: SIGN, VERIFY Event Display: Cardiac Catheterization -CV Authored Date: [facility] Note LAUREN GODINEZ MD: SIGN, VERIFY Event Display: VL Carotid US/Doppler Complete - CV LAUREN GODINEZ MD: SIGN, VERIFY Event Display: VL Palmar Arch Study LAUREN GODINEZ MD: SIGN, VERIFY Event Display: VL Radial Mapping Study LAUREN GODINEZ MD: SIGN, VERIFY Event Display: VL Vein Mapping US/Doppler Both Legs-CV [facility] Progress note No data available for this section [facility] Summary Purpose Family History No Family [...] DATE CREATED AUTHOR AUTHOR'S ORGANIZ ATION 11/24/2022 [facility] ([place]) DATE CREATED AUTHOR AUTHOR'S ORGANIZ ATION 12/06/2023 [facility] Care Team (unrecognized sect ion and content) Care Team Personnel Name: JOSE A WARNER MD Position: Physician Member Role: Primary Care Physician Address: Address: [address] [place] [address] Care Team Related Persons Name: PATRICK EL Care Team Personnel Name: NASIM ACOSTA MD Position: P4 Physician - Cardiothoracic Surgery Med Service: Active Provider Member Role: Cardiothoracic Surgeon Address: Address: [address] [place] [address] [address] Name: JOSE A WARNER MD Position: Physician Med Service: Active Provider Member Role: Primary Care Physician Address: Address: [address] [place] [address] Name: DIDIER MARCELO MD Position: P4 Physician - Cardiology Med Service: Employed Provider Member Role: Administrative Office Clerk Address: Address: [address] [place] [address] [address] [facility] Heart and Vascular [address] Care Team Related Persons Name: PATRICK EL Care Team Personnel Name: NASIM ACOSTA MD Position: P4 Physician - Cardiothoracic Surgery Med Service: Active Provider Member Role: Cardiothoracic Surgeon Address: Address: [address] [place] [address] Name: JOSE A WARNER MD Position: Physician Med Service: Active Provider Member Role: Primary Care Physician Address: Address: [address] [place] [address] [address] Name: DIDIER MARCELO MD Position: P4 Physician - Cardiology Med Service: Employed Provider Member Role: Administrative Office Clerk Address: Address: [address] [place] [address] [address] [place] [address]- Care Team Related Persons Name: PATRICK EL Care Team Personnel Name: NASIM ACOSTA MD Position: P4 Physician - Cardiothoracic Surgery Member Role: Cardiothoracic Surgeon Address: Address: [address] [place] [address] [address] [facility] Cardiooracic [address] Name: JOSE A WARNER MD Position: Physician Member Role: Primary Care Physician Address: Address: [address] [place] [address] Name: DIDIER MARCELO MD Position: P4 Physician - Cardiology Member Role: Administrative Office Clerk Address: Address: [address] [place] [address] [address] [place] [address]- Care Team Related Persons Name: PATRICK EL Care Team Personnel Name: NASIM ACOSTA MD Position: P4 Physician - Cardiothoracic Surgery Member Role: Cardiothoracic Surgeon Address: Address: [address] [place] [address] [address] [facility] [address] Name: JOSE A WARNER MD Position: Physician Member Role: Primary Care Physician Address: Address: [address] [place] [address] [address] Name: WILLIAM VIERA MD Position: [facility] Physician Member Role: Vascular Surgeon Address: Address: [address] [place], [place] [id number] [facility] [place] [address] Name: DIDIER MARCELO MD Position: P4 Physician - Cardiology Member Role: Administrative Office Clerk Address: Address: [address] [place] [address] Care Team Related Persons Name: PATRICK EL [...] BE BASED ON THE PRIMARY CLINICAL RECORDS. [facility] B[facility] A [employer]. provides no warranty or guarantee of the accuracy or completeness of information in this document.
--- NOTE | 2023-12-10 07:39 | MRI_ITS ---
STUDY: MRI BRAIN WITH AND WITHOUT CONTRAST REASON FOR EXAM: Male, 68 years old. 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 IV 17 cc clariscan was administered for the contrast portion of the examination. COMPARISON: Head CT dated November 21, 2023 FINDINGS: There is mild cerebral atrophy with widening of the extra-axial spaces and ventricular dilatation. There are a limited number of small white matter hyperintensities, distributed throughout the deep white matter tracts of the cerebral hemispheres, consistent with mild chronic white matter ischemic changes. Normal T2* images of the brain without demonstrated susceptibility artifact. There is no demonstrated hemosiderin stain. There is no evidence for recent intracranial ischemia or other cause of cytotoxic edema on diffusion weighted imaging (DWI). Focal gliotic signal and volume loss at the periphery of the posterior horn of the right lateral ventricle is most likely due to an old infarct or prior trauma to this region. There is no demonstrated ring-enhancing lesion of the brain parenchyma or abnormal thickening or enhancement of meninges or dura. Normal bilateral basal ganglia. Normal thalami. There is no extra-axial fluid accumulation. Normal flow voids within the major intracranial circulation suggesting patency by spin echo criteria. Normal venous enhancement. There is no enhancing intra-axial or extra-axial abnormality. Normal sella turcica, pituitary gland, infundibular stalk, optic chiasm and hypothalamus. Normal tectal plate and pineal gland. Normal midbrain, rosalio and medulla. Normal cerebellum. Normal basal cisterns. Normal bilateral temporal bones. Normal bilateral internal auditory canals. No demonstrated orbital abnormality, within the constraints of a routine brain study. Normal visualized paranasal sinuses. Normal calvarium and skull base. Normal visualized soft tissue structures. Normal visualized upper cervical spine. IMPRESSION: 1. Involutional and chronic ischemic changes of the brain, as described above. STUDY: MRI ORBITS WITH AND WITHOUT CONTRAST REASON FOR EXAM: Male, 68 years old. 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 COMPARISON: None. FINDINGS: Normal bilateral globes. Normal bilateral optic nerve sheath complexes and optic nerves. Normal bilateral intraconal and extraconal spaces. Normal bilateral extraocular muscles. There is no demonstrated off the neuritis. Normal optic chiasm and post-chiasmatic tracts. Normal sella turcica, pituitary gland, infundibular stalk, and hypothalamus. Normal bilateral cavernous sinuses. Normal tectal plate and pineal gland. The right middle ethmoid air cell is opacified with mucous material. Normal midbrain, rosalio and medulla. Normal cerebellum. Normal basal cisterns. MRI/Brain W/WO Contrast IMPRESSION: Normal unenhanced MRI of the orbits. Electronically Signed: Clay North MD at 11:14 EST ,
== END | disposition home or self-care (01) ==
LOC: MRI 07:24
PROVIDERS: PCP Internal Medicine Infectious Disease; Referring Provider Ophthalmology; Visit Provider Ophthalmology
DX: H49.02 Third [oculomotor] nerve palsy, left eye (principal)
CPT/HCPCS: 70553; A9575

== ENCOUNTER 2023-12-23 12:10 | Day surgery (SDC) | payer MEDICARE, BC, SELFPAY ==
[2023-12-23] VITALS (7 sets, daily range): BP systolic 78–138; BP diastolic 63–87; PULSE 57–62; RESP 16; TEMP 36.2–36.6; O2SAT 93–100; BMI 23.9
[2023-12-23] MEDS: Lactated Ringers 1,000 ML 15 ML IV ×2 (12:30→15:55)
--- NOTE | 2023-12-23 12:47 | PCM.HP.BLA ---
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: No Is patient in pain?: Yes (headache) Allergies No Known Allergies Allergy (Verified 12/09/23 08:18) Medications aspirin 81 mg tablet,delayed release 81 mg PO DAILY@0800 03/17/17 [History Confirmed 12/09/23] metoprolol succinate 100 mg tablet,extended release 24 hr 100 mg PO DAILY 03/17/17 [History Confirmed 12/09/23] tamsulosin 0.4 mg capsule 0.8 mg PO DAILY 03/17/17 [History Confirmed 12/09/23] empagliflozin 25 mg tablet 25 mg PO DAILY 02/27/21 [History Confirmed 12/09/23] finasteride 5 mg tablet 5 mg PO DAILY 02/27/21 [History Confirmed 12/09/23] metformin 500 mg tablet,extended release 24 hr 1,000 mg PO BID 02/27/21 [History Confirmed 12/09/23] atorvastatin 40 mg tablet 40 mg PO DAILY 11/21/23 [History Confirmed 12/09/23] clopidogrel 75 mg tablet 75 mg PO DAILY 11/21/23 [History Confirmed 12/09/23] insulin aspart U-100 100 unit/mL (3 mL) subcutaneous pen (Novolog FlexPen U-100 Insulin aspart) 5 unit subcut TID 11/21/23 [History Confirmed 12/09/23] levothyroxine 50 mcg tablet 50 mcg PO DAILY 11/21/23 [History Confirmed 12/09/23] prednisone 10 mg tablet mg PO 12/09/23 [History Confirmed 12/09/23] [facility]LY [facility], [facility] Medical History (Updated 12/09/23 @ 16:[address] Garth Curtis MD) History of Tejada's palsy HTN (hypertension) Hyperlipidemia Type 2 diabetes mellitus Surgical History (Updated 12/09/23 @ 08:16 by Madelin Irizarry) Hx of CABG Hx of heart artery stent S/P carotid endarterectomy Family History (Updated 12/09/23 @ 08:17 by Madelin Irizarry) Brother DiabetesFather DiabetesMother Heart disease Social History (Updated 12/09/23 @ 08:17 by Madelin Irizarry) Smoking Status: Former smoker alcohol intake: never HPI HPI HPI: Patient is a 68-year-old male sent here for left temporal artery biopsy. Patient has been having double vision. He is also been having pain on that side. Patient is also unable to lift his left eyelid. He reports this started he last week. He does have a history of carotid surgery and heart stents. ROS General General: No weight change, appetite, fatigue, colon cancer, breast cancer or weakness HEENT HEENT: No difficulty swallowing, eye injury, eye surgery, swollen glands or hoarseness Endo Endocrine: Yes diabetes mellitus; No thyroid disease, thyroid cancer, Hair loss, heat intolerance or cold intolerance Skin Skin: No rash or changing moles Breast Breast: No left breast lump, right breast lump, nipple discharge, breast pain, abnormal mammogram, abnormal US or breast enlargement Musc Musculoskeletal: Yes back problems and arthritis; No rheumatoid arthritis, gout or joint pain Cardio Cardiovascular: Yes heart disease, high blood pressure and heart stent; No murmur, pacemaker, atrial fibrillation, heart attack, palpitations, shortness of breat with exertion or chest pain Psych Psychiatric: No depression, anxiety or hearing voices Resp Respiratory: No shortness of breath, No sleep apnea, No cough, No COPD, No asthma, No emphysema and No wheezing Gastro Gastrointestinal: No abdominal pain, No nausea or vomiting, No diarrhea, No constipation, No blood in stool, No acid reflux, No hemorrhoids, No ulcers, No gallbladder problem and No black,tarry stools Robson Hematologic: Yes blood thinners, No blood disorders, No bleeding, No anemia and No blood clots Neuro Neurologic: No system reviewed and no additional complaints, except as documented, No as per HPI, No abnormal gait, No abnormal hearing, No abnormal movements, No abnormal speech, No behavioral changes, No burning sensations, No confusion, No convulsions, No disequilibrium, No dizziness, No localized weakness, No frequent falls, No headache(s), No lack of coordination, No loss of vision, No memory loss, No numbness, No other visual disturbances, No radicular pain, No restless legs, No sensory deficit, No syncope, No tingling, No tremor(s), No weakness and No other Exam Const General: cooperative Orientation: alert and oriented x3 HENMT Head: normal to inspection Eyes Eyelids: other (Unable to open left eyelid voluntarily) Neck Neck: normal visual inspection and full ROM Chest Chest palpation & inspection: normal inspection of the chest Resp Effort & Inspection: normal respiratory effort Auscultation: clear to auscultation bilaterally Cardio Rate: regular rate Rhythm: regular rhythm GI Inspection: non-distended Palpation: soft and nontender Skin General: no rashes or lesions noted Neuro General: patient alert and patient oriented x3 Extrem General: full ROM Psych Appearance: grossly normal Mental Status: mental status grossly normal Assessment and Plan Assessment and Plan (1) Left temporal headache: Status: Acute Plan: Patient has been having inability to open his left eye as well as double vision. When I had him raise his left eyelid his eyes did not move Together well. There was discussion with Dr. Hernandez about possible 3rd nerve palsy but he sent him here for biopsy of the left temporal artery. The patient is also having an MRI tomorrow. If the MRI tomorrow shows any stroke then I will cancel his surgery. Otherwise I will have him plan for left temporal artery biopsy. I discussed this with him in detail. I discussed the risks such as bleeding, infection, nondiagnosis. Garth Curtis MD Pager: [facility] [address] [place] [address], [address] [place] [address] Office: I have examined the patient and the H&P has been reviewed. There are no clinical changes since date of exam.
[2023-12-23 13:21] LABS: Bedside Glucose 232 mg/dL (74-106)
--- NOTE | 2023-12-23 13:23 | SUR.PREOP ---
Notified anesthesia of 232 blood sugar.
--- NOTE | 2023-12-23 14:15 | TEM_PTH ---
PATHOLOGY RESULTS PATIENT: DIMITRY CAMARILLO LOC: [facility] U#:[id number] AGE/SX: 68/M ROOM: RE12/23/[address]: Dr. Garth Curtis MD : 1955 BED: DIS: 12/23/2023 SPEC #: [id number] RECD: 12/24/23 07:25 STATUS: YANNICK KING #: [id number] MEJIA: 12/23/23 14:[address]: Garth Curtis DEPT: SURGICAL PATHOLOGY RECD BY: Justine Vargas ENTERED: 12/24/23 07:26 SP TYPE: TEMPORAL OTHR DR: Dr. 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 No evidence of arteritis. See comment. AM:nicky 12/27/2023 COMMENT Elastin stain with matched control was used in the evaluation of this case. MICROSCOPIC DESCRIPTION Slides are reviewed. GROSS DESCRIPTION Received in fixative is one container labeled with the patient's name and designated left temporal artery biopsy. The specimen consists of a tubular piece of jarrell-pink soft tissue measuring 2.5 cm in length and 0.2 cm in diameter. The specimen is totally submitted in one cassette. / SJ:nicky 12/24/2023 TC:5 CPT: 79336, 13031
[2023-12-23] MEDS: Lidocaine 1% (30 ml sdv) 30 ML Vial (15:31)
--- NOTE | 2023-12-23 15:44 | OP.PCM_ITS ---
Report of Operation Date of Procedure: 12/23/23 Pre-Operative Diagnosis: Left eyelid drooping and headache Post-Operative Diagnosis: Same Surgery/Procedure Performed:: Left temporal artery biopsy Type of Anesthesia: Local MAC Specimen's removed: Left temporal artery segment Estimated Blood Loss (mL): 5 Description of Procedure: Patient was brought to the operating room and MAC anesthesia was induced. The left adventism was clipped of hair and then ultrasound was used to trace the left temporal artery and marked. The left adventism was then prepped and draped in usual sterile fashion. Skin incision marking was injected with local anesthetic. Skin incision was then made. Electrocautery was used to maintain hemostasis. Dissection was carried out in the artery had several crossing veins over the had to be clipped. The artery was identified and it was dissected along its course. The proximal limb was double clipped and the distal end was single clipped. The segment was removed. There was good hemostasis and the area was irrigated and suctioned dry. The dermis was closed with interrupted 4-0 Monocryl suture and the epidermis was closed with a running 4-0 Monocryl suture. Dermabond glue was applied. Patient was awoken and taken to PACU in stable condition and tolerated the procedure well. Admit VTE Documentation VTE Mechan Device Prophylaxis: SCD's
--- NOTE | 2023-12-23 15:47 | DCINST_ITS ---
Discharge Instructions Diet Discharge Diet: Light diet - advance as tolerated Activity Discharge Activity: Return to Normal Activity, May Drive (tomorrow) and May Shower (tomorrow) Lifting Restrictions: 15 lbs for 2-3 days Dressing / Incision Call your doctor if your incision/area has: Continuous Slow Oozing, Sudden Increased Bleeding, Increased Pain/ Swelling, Increased Redness, Foul Smelling Discharge and Swelling at the incision site Call your doctor if you observe: Fever of 101 or Higher Cleanse incision/area with: Soap & Water Additional Dressing/Incision Instructions:: Alternate ibuprofen and Tylenol for pain. Resume aspirin and Plavix on Wednesday. Follow Up Care Please Follow Up With: Garth Nazario MD When: Please call to schedule 2 week follow up appointment. [phone] Test Results: Test results from this visit will be discussed in further detail at your follow- up appointment, if applicable. Discharge Plan Admission Attending Provider: Garth Nazario Primary Care Provider: Terry Cruz Discharge Orders/Prescriptions Prescriptions: No Action prednisone 10 mg tablet 40 mg PO DAILY Patient Comments: TAKE 4 TABLETS BY MOUTH DAILY metoprolol succinate 100 MG tablet 50 mg PO BID aspirin 81 MG tablet 81 mg PO DAILY@0800 metformin 500 MG tablet 1,000 mg PO BID empagliflozin 25 MG tablet 25 mg PO DAILY atorvastatin 40 mg tablet 40 mg PO DAILY Patient Comments: TAKE 1 TABLET BY MOUTH ONCE DAILY clopidogrel 75 mg tablet 75 mg PO DAILY Patient Comments: PER DR NAZARIO'S INSTRUCTION, LAST DOSE 12/17/23 FOR SURGERY ON 12/23/23 insulin aspart U-100 [Novolog FlexPen U-100 Insulin] 100 unit/mL (3 mL) insulin pen 5 unit SUBCUT 4X/DAY levothyroxine 50 mcg tablet 50 mcg PO DAILY Patient Comments: TAKE 1 TABLET BY MOUTH ONCE DAILY Referrals / Follow Up: Terry Cruz MD [Primary Care Provider] - Disposition Disposition (needs filled in before D/C Order can be placed): Home, Self Care
== END 2023-12-23 16:30 | disposition home or self-care (01) ==
LOC: SDC 12:11 → AC 12:13
PROVIDERS: PCP Internal Medicine Infectious Disease; Referring Provider Surgery; Visit Provider Surgery
PROC: (CPT 37609; principal; 2023-12-23 14:00)
DX: R51.9 Headache, unspecified (principal); E11.9 Type 2 diabetes mellitus without complications; Z79.84 Long term (current) use of oral hypoglycemic drugs; E78.5 Hyperlipidemia, unspecified; I10 Essential (primary) hypertension; Z87.891 Personal history of nicotine dependence; Z79.82 Long term (current) use of aspirin; Z95.1 Presence of aortocoronary bypass graft; Z95.5 Presence of coronary angioplasty implant and graft; Z86.69 Personal history of other diseases of the nervous system and sense organs; E07.9 Disorder of thyroid, unspecified; Z90.79 Acquired absence of other genital organ(s); I45.10 Unspecified right bundle-branch block; I25.10 Atherosclerotic heart disease of native coronary artery without angina pectoris
CPT/HCPCS: 37609; 00352; 82962; 88305; 88313; A4648; J7120; J2405

== ENCOUNTER → 2024-06-08 | Outpatient (CLI) | payer MEDICARE, BC, SELFPAY ==
--- NOTE | 2024-06-08 07:54 | US_ITS ---
STUDY: ABDOMINAL ULTRASOUND - RIGHT UPPER QUADRANT REASON FOR VISIT: Male, 69 years old Right upper quadrant pain TECHNIQUE: Ultrasound evaluation of the right upper quadrant was performed with real-time and static ceballos-scale imaging. TECHNICAL QUALITY: Adequate. COMPARISON: None. FINDINGS: Liver: The liver is borderline enlarged and measures 17.7 cm. There is normal echogenicity of the liver. The bile ducts are within normal limits. There is hepatic color flow. The direction of portal flow is hepatopetal. There is no demonstrated mass lesion. Gallbladder: Normal distended gallbladder. The gallbladder wall measures 1.8 mm. There is a negative sonographic Dutton''s sign. There is no pericholecystic fluid. There are no gallstones. Common Bile Duct (C.B.D.): The common bile duct measures 3.5 mm. Pancreas: Normal size of the head, body and tail of the pancreas. There is normal echogenicity of the pancreas. There is no demonstrated pancreatic mass or cyst. Right Kidney: Normal size of the right kidney. The right kidney measures 11.7 cm x 5.6 x 6.7 cm. Normal renal cortex. The right cortex measures 1.2 cm. There is no demonstrated renal mass or cyst. There is no right hydronephrosis. US/Abdomen Limited IMPRESSION: Borderline hepatomegaly. No acute abnormality is seen. Electronically Signed: Suman Escobar MD at 14:10 EDT ,
== END | disposition home or self-care (01) ==
LOC: US 07:53
PROVIDERS: PCP Internal Medicine Infectious Disease; Referring Provider Student in an Organized Health Care Education/Training Program; Visit Provider Student in an Organized Health Care Education/Training Program
DX: R10.11 Right upper quadrant pain (principal)
CPT/HCPCS: 76705